=== PATIENT | female | born 1965 | race African-American/Black ===

== ENCOUNTER 2023-11-15 19:44 | Inpatient (IN) | payer OTHER ==
[2023-11-15 21:25] LABS: Anisocytosis Slight; Basophils % (A) 0 %; Eosinophils # (A) 0.2 k/uL (0-0.7); Eosinophils % (A) 1 %; HCT 42.8 % (34.0-46.0); Hypochromasia Slight; Lymphocytes # (A) 0.4 k/uL (1.0-4.8); Lymphocytes % (A) 2 %; MCH 25.6 pg (25.0-35.0); MCHC 30.3 g/dL (31.0-37.0); MCV 84.3 fL (80.0-100.0); Mean Platelet Volume 9.1; Monocytes # (A) 0.4 k/uL (0-1.0); Monocytes % (A) 2 %; Neutrophils # (A) 18.7 k/uL (1.3-7.7); Neutrophils % (A) 95 %; Platelet Count 254 k/uL (150-450); RBC 5.07 m/uL (3.80-5.40); RDW 16.2 % (11.5-15.5); WBC 19.7 k/uL (3.8-10.6)
[2023-11-15 21:26] LABS: ALT 25 U/L (4-34); AST 42 U/L (14-36); African American GFR (CKD) >90 (>60 ml/min/1.73 sqM); Albumin 4.3 g/dL (3.5-5.0); Alkaline Phosphatase 94 U/L (38-126); Anion Gap 11 mmol/L; Blood Urea Nitrogen 17 mg/dL (7-17); Calcium 9.3 mg/dL (8.4-10.2); Carbon Dioxide 23 mmol/L (22-30); Chloride 107 mmol/L (98-107); Glucose 65 mg/dL (74-99); Non-African American GFR(CKD) >90 (>60 ml/min/1.73 sqM); Potassium 4.2 mmol/L (3.5-5.1); Sodium 141 mmol/L (137-145); Total Bilirubin 0.6 mg/dL (0.2-1.3); Total Protein 7.7 g/dL (6.3-8.2)
--- NOTE | 2023-11-15 21:26 | ED ---
Lower Extremity Injury HPI - General Source: patient, RN notes reviewed Mode of arrival: ambulatory Limitations: physical limitation <Priyanka Campos - Last Filed: 11/15/23 21:24> <Philip Mckeon - Last Filed: 11/16/23 01:25> - General Chief Complaint: Extremity Injury, Lower Stated Complaint: rt foot injury Time Seen by Provider: 11/15/23 21:24 - History of Present Illness Initial Comments: Quick [id number] female presenting with right foot injury. States yesterday she accidentally stepped on a piece of plastic. She states she had a retained foreign body which she states she got most of it out but believes there is still plastic remaining. States her foot is swollen and red and also admits fever but denies any URI symptoms. (Priyanka Campos) 58-year-old female presenting to the ED with a chief complaint of right foot pain. Patient reports yesterday she stepped on a piece of plastic. Reports since then has had increasing redness, pain, and swelling of her right foot. Does note some associated fever. Denies URI symptoms. Denies abdominal pain. Denies changes in bowel or bladder habits. No other complaints at this time. (Philip Mckeon) - Related Data Allergies Allergy/AdvReac Type Severity Reaction Status Date / Time amlodipine Allergy Rash/Hives Verified 11/15/23 20:42 ceftriaxone [From Rocephin] Allergy Swelling Verified 11/15/23 20:42 Review of Systems ROS Other: All systems not noted in ROS Statement are negative. <Priyanka Campos - Last Filed: 11/15/23 21:24> ROS Other: All systems not noted in ROS Statement are negative. <Philip Mckeon - Last Filed: 11/16/23 01:25> ROS Statement: Those systems with pertinent positive or pertinent negative responses have been documented in the HPI. Past Medical History Past Medical History: Hypertension Additional Past Medical History / Comment(s): neuropathy. heroin/fentanyl use last 11/09/23 History of Any Multi-Drug Resistant Organisms: None Reported Past Surgical History: Bladder Surgery Additional Past Surgical History / Comment(s): ulcer Past Psychological History: No Psychological Hx Reported Smoking Status: Current every day smoker Past Alcohol Use History: None Reported Past Drug Use History: None Reported <Priyanka Campos - Last Filed: 11/15/23 21:24> General Exam Limitations: physical limitation <AndresLisaPriyanka - Last Filed: 11/15/23 21:24> General appearance: alert, in no apparent distress Eye exam: Present: normal appearance Neck exam: Present: normal inspection Respiratory exam: Present: normal lung sounds bilaterally Cardiovascular Exam: Present: regular rate GI/Abdominal exam: Present: soft Extremities exam: Present: other (Right foot swollen and warm.) Neurological exam: Present: alert, oriented X3 Skin exam: Present: warm, dry <Philip Mckeon - Last Filed: 11/16/23 01:25> - General Exam Comments Initial Comments: Visual Physical Exam Vital signs reviewed General: Well-appearing, nontoxic, no acute distress. Head: Normocephalic, atraumatic Eyes: PERRLA, EOMI ENT: Airway patent Chest: Nonlabored breathing Skin: No visual rash, normal skin tone Neuro: Alert and oriented 3 Musculoskeletal: No gross abnormalities (Priyanka Campos) Course Vital Signs 11/15/23 11/16/23 20:42 00:20 Temperature 100.7 F H 98.9 F Pulse Rate 87 83 Respiratory 16 18 Rate Blood Pressure 205/109 177/82 O2 Sat by Pulse 97 96 Oximetry Medical Decision Making <Priyanka Campos - Last Filed: 11/15/23 21:24> - Lab Data Result diagrams: 11/15/23 21:06 11/15/23 21:06 <Jigar Mckeonua - Last Filed: 11/16/23 01:25> - Medical Decision Making I completed the quick note portion of this chart signed Priyanka Campos PA-C (Priyanka Campos) Was pt. sent in by a medical professional or institution ([facility], BOOK CUTTER, urgent care, hospital, or senior living...) When possible be specific @ -No Did you speak to anyone other than the patient for history (EMS, parent, family, police, friend...)? What history was obtained from this source @ -No Did you review nursing and triage notes (agree or disagree)? Why? @ -I reviewed and agree with nursing and triage notes Were old charts reviewed (outside hosp., previous admission, EMS record, old EKG, old radiological studies, urgent care reports/EKG's, senior living records)? Report findings @ -No old charts were reviewed Differential Diagnosis (chest pain, altered mental status, abdominal pain women, abdominal pain men, vaginal bleeding, weakness, fever, dyspnea, syncope, headache, dizziness, GI bleed, back pain, seizure, CVA, palpatations, mental health, musculoskeletal)? @ -Differential Musculoskeletal Muscular strain, contusion, ligament sprain, fracture, arthritis, septic arthritis, bursitis, cellulitis, muscle spasm, nerve compression, DVT, arterial occlusion, herpes zoster, electrolyte abnormality, tumor.... This is not meant to be in all inclusive list EKG interpreted by me (3pts min.). @ -None X-rays interpreted by me (1pt min.). @ -X-ray of the right foot interpreted me which reveals no evidence of acute process. CT interpreted by me (1pt min.). @ -None done U/S interpreted by me (1pt. min.). @ -None done What testing was considered but not performed or refused? (CT, X-rays, U/S, labs)? Why? @ -None What meds were considered but not given or refused? Why? @ -None Did you discuss the management of the patient with other professionals (professionals i.e. , PA, BOOK CUTTER, lab, RT, psych nurse, social sciences lecturer, powerhouse laborer, teacher, community service officer, counseling case manager)? Give summary @ -Case discussed with Dr. Flaherty, who accepts admission Was smoking cessation discussed for >3mins.? @ -No Was critical care preformed (if so, how long)? @ -Yes, 35 minutes for sepsis Were there social determinants of health that impacted care today? How? (Homelessness, low income, unemployed, alcoholism, drug addiction, transportation, low edu. Level, literacy, decrease access to med. care, [facility], rehab)? @ -No Was there de-escalation of care discussed even if they declined (Discuss DNR or withdrawal of care, Hospice)? DNR status @ -No What co-morbidities impacted this encounter? (DM, HTN, Smoking, COPD, CAD, Cancer, CVA, ARF, Chemo, Hep., AIDS, mental health diagnosis, sleep apnea, morbid obesity)? @ -None Was patient admitted / discharged? Hospital course, mention meds given and route, prescriptions, significant lab abnormalities, going to OR and other pertinent info. @ -Admission 58-year-old female presented to the ED with complaints of increasing right foot pain after stepping on a plastic piece yesterday with increasing warmth and fever as well. The patient presented to this facility at 194. She met sepsis criteria at 2113. Patient was signed up for at 2333. At 0012 patient given 2 L bolus of fluids and 1 g of acetaminophen. At 0100 patient ordered vancomycin. Blood cultures were obtained and lactic was obtained as well. Labs relevant for an elevated white blood cell count at 19 and a lactic acid of 2.3. Patient will be admitted for IV antibiotics secondary to infection of the right foot. Undiagnosed new problem with uncertain prognosis? @ -No Drug Therapy requiring intensive monitoring for toxicity (Heparin, Nitro, Insulin, Cardizem)? @ -No Were any procedures done? @ -No Diagnosis/symptom? @ -Right foot infection, SIRS criteria Acute, or Chronic, or Acute on Chronic? @ -Acute Uncomplicated (without systemic symptoms) or Complicated (systemic symptoms)? @ -Complicated Side effects of treatment? @ -No Exacerbation, Progression, or Severe Exacerbation? @ -No Poses a threat to life or bodily function? How? (Chest pain, [place], [place], pneumonia, PE, COPD, DKA, ARF, appy, cholecystitis, CVA, Diverticulitis, Homicidal, Suicidal, threat to staff... and all critical care pts) @ -Yes, sepsis (Philip Mckeon) - Lab Data Lab Results 11/15/23 11/15/23 11/15/23 Range/Units 21:06 21:06 21:06 WBC 19.7 H (3.8-10.6) k/uL RBC 5.07 (3.80-5.40) m/uL Hgb 13.0 (11.4-16.0) gm/dL Hct 42.8 (34.0-46.0) % MCV 84.3 (80.0-100.0) fL MCH 25.6 (25.0-35.0) pg MCHC 30.3 L (31.0-37.0) g/dL RDW 16.2 H (11.5-15.5) % Plt Count 254 (150-450) k/uL MPV 9.1 Neutrophils % 95 % Lymphocytes % 2 % Monocytes % 2 % Eosinophils % 1 % Basophils % 0 % Neutrophils # 18.7 H (1.3-7.7) k/uL Lymphocytes # 0.4 L (1.0-4.8) k/uL Monocytes # 0.4 (0-1.0) k/uL Eosinophils # 0.2 (0-0.7) k/uL Basophils # 0.0 (0-0.2) k/uL Hypochromasia Slight Anisocytosis Slight Sodium 141 (137-145) mmol/L Potassium 4.2 (3.5-5.1) mmol/L Chloride 107 (98-107) mmol/L Carbon Dioxide 23 (22-30) mmol/L Anion Gap 11 mmol/L BUN 17 (7-17) mg/dL Creatinine 0.71 (0.52-1.04) mg/dL Est GFR (CKD-EPI)AfAm >90 (>60 ml/min/1.73 sqM) Est GFR (CKD-EPI)NonAf >90 (>60 ml/min/1.73 sqM) Glucose 65 L (74-99) mg/dL Lactic Ac Sepsis Rflx Plasma Lactic Acid Kiran 2.3 H* (0.7-2.0) mmol/L Calcium 9.3 (8.4-10.2) mg/dL Total Bilirubin 0.6 (0.2-1.3) mg/dL AST 42 H (14-36) U/L ALT 25 (4-34) U/L Alkaline Phosphatase 94 (38-126) U/L Total Protein 7.7 (6.3-8.2) g/dL Albumin 4.3 (3.5-5.0) g/dL 11/15/23 11/16/23 Range/Units 21:29 00:45 WBC (3.8-10.6) k/uL RBC (3.80-5.40) m/uL Hgb (11.4-16.0) gm/dL Hct (34.0-46.0) % MCV (80.0-100.0) fL MCH (25.0-35.0) pg MCHC (31.0-37.0) g/dL RDW (11.5-15.5) % Plt Count (150-450) k/uL MPV Neutrophils % % Lymphocytes % % Monocytes % % Eosinophils % % Basophils % % Neutrophils # (1.3-7.7) k/uL Lymphocytes # (1.0-4.8) k/uL Monocytes # (0-1.0) k/uL Eosinophils # (0-0.7) k/uL Basophils # (0-0.2) k/uL Hypochromasia Anisocytosis Sodium (137-145) mmol/L Potassium (3.5-5.1) mmol/L Chloride (98-107) mmol/L Carbon Dioxide (22-30) mmol/L Anion Gap mmol/L BUN (7-17) mg/dL Creatinine (0.52-1.04) mg/dL Est GFR (CKD-EPI)AfAm (>60 ml/min/1.73 sqM) Est GFR (CKD-EPI)NonAf (>60 ml/min/1.73 sqM) Glucose (74-99) mg/dL Lactic Ac Sepsis Rflx Y Plasma Lactic Acid Kiran 1.8 (0.7-2.0) mmol/L Calcium (8.4-10.2) mg/dL Total Bilirubin (0.2-1.3) mg/dL AST (14-36) U/L ALT (4-34) U/L Alkaline Phosphatase (38-126) U/L Total Protein (6.3-8.2) g/dL Albumin (3.5-5.0) g/dL Disposition <Priyanka Campos - Last Filed: 11/15/23 21:24> Time of Disposition: 01:00 <Philip Mckeon - Last Filed: 11/16/23 01:25> Clinical Impression: Foot infection Disposition: ADMITTED IP TO THIS HOSP Condition: Good Referrals: Arnav López MD [Primary Care Provider] - 1-2 days
--- NOTE | 2023-11-15 23:30 | XR ---
EXAMINATION TYPE: XR foot complete RT DATE OF EXAM: 11/15/2023 CLINICAL HISTORY: right foot injury with pain TECHNIQUE: Frontal, lateral, and oblique images of the right foot are obtained. COMPARISON: None FINDINGS: There is no acute fracture/dislocation evident in the right foot. Hallux valgus positionin g at the metatarsophalangeal joints greatest involving the first toe. [id number] narrowing at t his level is seen. Subacute or chronic fracture at the proximal diaphysis fifth metatarsal . Flexion in the toes is present making evaluation at this level slightly suboptimal. Small inferior calcaneal spur. Unfused apophysis proximal medial base of the navicular is present. The overlying soft tissue appears unremarkable. IMPRESSION: There is no acute fracture or dislocation in the right foot.
[2023-11-16] MEDS ORDERED: VANCOMYCIN IV PER PHARMACY 1 EACH MISC MISCELLANE PRN (00:18)
[2023-11-16] MEDS: ACETAMINOPHEN TAB 500 MG TAB PO STA (00:24)
[2023-11-16] MEDS: SODIUM CHLORIDE 0.9% 2,000 ML IV STA (00:40)
[2023-11-16] MEDS: VANCOMYCIN 1,500 MG in SODIUM CHLORIDE 0.9% 500 ML 500 ML IVPB ONE (00:41)
[2023-11-16] MEDS ORDERED: NALOXONE 0.4 MG/ML 1 ML VIAL IV PRN (01:20)
[2023-11-16] MEDS: SODIUM CHLORIDE 0.9% 1,000 ML IV SCH (02:19)
[2023-11-16] MEDS: KETOROLAC 15 MG/ML 1 ML VIAL IVP STA ×2 (02:37→10:50)
[2023-11-16 02:51] LABS: Appearance,Urine Clear (Clear); Bilirubin,Urine Negative (Negative); Blood,Urine Negative (Negative); Color,Urine Colorless; Glucose,Urine (UA) Negative (Negative); Ketones,Urine Negative (Negative); Leukocyte Esterase,Urine Negative (Negative); Nitrite,Urine Negative (Negative); Protein,Urine Negative (Negative); Specific Gravity,Urine 1.013 (1.001-1.035); Urobilinogen,Urine <2.0 mg/dL (<2.0)
--- NOTE | 2023-11-16 05:48 | P.HPIM ---
History of Present Illness H&P Date: 11/16/23 Chief Complaint: Right foot infection 58-year-old female with history of spinal stenosis and neuropathy Patient coming in for evaluation of right foot injury associated with swelling proximally. Patient reports that she has bad peripheral neuropathy and couple days ago not iced that she has injured her foot by stepping on been Endo Clip which she was able to clean off when she found the wound in her right foot she does not feel much pain due to peripheral neuropathy but has noticed that right proximal leg has been getting swollen easily tired. After which she was able to express small piece of the plastic clip. Patient reports some chills and feeling warm. Denies any drainage denies any bleeding however she did find some dried crustacean in her socks Patient also admits to taking methadone 130 mg daily for severe withdrawal symptoms Patient denies tobacco smoking illicit drugs or heavy alcohol review of systems Pertinent positives as noted in HPI. All other systems were reviewed and are negative on exam Constitutional: No acute distress, conversant, pleasant Eyes: Anicteric sclerae, moist conjunctiva, Pupils equal round reactive to light ENMT: NC/AT Oropharynx clear, no erythema, or exudates Neck: Supple, no masses, or JVD No carotid bruits No thyromegaly Lungs: Clear to auscultation Clear to percussion Normal respiratory effort, no accessory muscle use Cardiovascular: Heart regular in rate and rhythm, No murmurs, gallops, or rubs No peripheral edema Abdominal: Soft Nontender, no guarding, rebound or rigidity Abdomen moving with respiration Normoactive bowel sounds Extremities: Right foot with small puncture wound slightly above midline of the right foot showing small entry point no digital cyanosis No clubbing Pedal pulses intact and symmetrical Radial pulses intact and symmetrical No calf tenderness Psychiatric: Alert and oriented to person, place and time Appropriate affect fair judgement Neuro Muscles Strength 5/5 in all 4 extremities Sensation to light touch grossly present throughout Cranial nerves II-XII grossly intact Lymphatics: Palpable right inguinal lymph nodes Past Medical History Past Medical History: Hypertension Additional Past Medical History / Comment(s): neuropathy. heroin/fentanyl use last 11/09/23 History of Any Multi-Drug Resistant Organisms: None Reported Past Surgical History: Bladder Surgery Additional Past Surgical History / Comment(s): ulcer Past Anesthesia/Blood Transfusion Reactions: No Reported Reaction Past Psychological History: No Psychological Hx Reported Smoking Status: Current every day smoker Past Drug Use History: Heroin Additional Drug Use History / Comment(s): fetanyl Medications and Allergies Allergies Allergy/AdvReac Type Severity Reaction Status Date / Time amlodipine Allergy Rash/Hives Verified 11/15/23 20:42 ceftriaxone [From Rocephin] Allergy Swelling Verified 11/15/23 20:42 Physical Exam Vitals: Vital Signs Temp Pulse Pulse Resp BP BP Pulse Ox 11/16/23 03:04 98.8 F 82 16 183/77 98 11/16/23 02:51 77 18 171/91 96 11/16/23 00:20 98.9 F 83 18 177/82 96 11/15/23 20:42 100.7 F H 87 16 205/109 97 Intake and Output 11/15/23 11/15/23 11/16/23 14:59 22:59 06:59 Other: Voiding Method Toilet Weight 70.307 kg 70.307 kg Results CBC & Chem 7: 11/15/23 21:06 11/15/23 21:06 Labs: Abnormal Lab Results - Last 24 Hours (Table) 11/15/23 11/15/23 11/15/23 Range/Units 21:06 21:06 21:06 WBC 19.7 H (3.8-10.6) k/uL MCHC 30.3 L (31.0-37.0) g/dL RDW 16.2 H (11.5-15.5) % Neutrophils # 18.7 H (1.3-7.7) k/uL Lymphocytes # 0.4 L (1.0-4.8) k/uL Glucose 65 L (74-99) mg/dL Plasma Lactic Acid Kiran 2.3 H* (0.7-2.0) mmol/L AST 42 H (14-36) U/L Thrombosis Risk Factor Assmnt - Choose All That Apply Any of the Below Risk Factors Present?: Yes Each Factor Represents 1 point: Age 41-60 years, Swollen legs (current) Thrombosis Risk Factor Assessment Total Risk Factor Score: 2 Thrombosis Risk Factor Assessment Level: Low Risk Assessment and Plan Assessment: 58-year-old female with peripheral neuropathy hypertension coming in for evaluation of right foot wound caused by injury with foreign body by stepping on it I discussed the case with ED doctor and accepted the admission for cellulitis of the right lower extremity requiring IV antibiotics with anticipated length of stay more than 2 midnights Sepsis secondary to cellulitis of the right lower extremity Follow-up cultures IV fluid hydration with normal saline 120 cc/h Pain control with Tylenol 4 times daily as needed patient requested [place] tens Continue with clindamycin 600 mg Q ID Blood work showing white count of 19 lactic acid 2.3 Patient has history of opiate abuse She claims to be on methadone 130 mg daily Verify in the morning done resume medications Full code DVT prophylaxis heparin subcu 3 times daily
[2023-11-16] MEDS: MORPHINE SULFATE 2 MG/ML SYRINGE IVP ONE (08:03)
[2023-11-16 08:48] LABS: African American GFR (CKD) >90 (>60 ml/min/1.73 sqM); Non-African American GFR(CKD) >90 (>60 ml/min/1.73 sqM)
[2023-11-16] MEDS: IBUPROFEN 400 MG TAB PO PRN (08:55)
[2023-11-16] MEDS: HEPARIN SODIUM,PORCINE 5,000 UNIT/ML 1 ML VIAL SQ SCH (08:56)
[2023-11-16] MEDS ORDERED: DEXTROSE 50% SYRINGE 50 ML IVP PRN ×2 (10:32)
[2023-11-16] MEDS: PROCHLORPERAZINE INJ 10 MG/2 ML VIAL IVP STA (10:50)
[2023-11-16] MEDS: diphenhydrAMINE 50 MG/ML 1 ML VIAL IVP STA (10:50)
[2023-11-16] MEDS: LOSARTAN 50 MG TAB PO SCH (10:51)
[2023-11-16] MEDS: cloNIDine HCL 0.1 MG TAB PO SCH (10:51)
[2023-11-16] MEDS: METHADONE 10 MG TAB PO SCH (11:46)
[2023-11-16] MEDS: SERTRALINE 50 MG TAB PO SCH (11:47)
[2023-11-16] MEDS: THIAMINE 100 MG TAB PO SCH (11:47)
[2023-11-16] MEDS: MULTIVITAMINS, THERA 1 EACH TAB PO SCH (11:47)
[2023-11-16] MEDS: VANCOMYCIN 1,500 MG in SODIUM CHLORIDE 0.9% 500 ML 500 ML IVPB SCH (12:44)
--- NOTE | 2023-11-16 15:11 | P.PN ---
Subjective Progress Note Date: 11/16/23 Hospital course: Patient is a pleasant 58-year-old female with a past medical history of hypertension, neuropathy, nicotine dependence, heroin/fentanyl use, and methadone dependence. She presented to the emergency department on 11/15/2023 with a chief complaint of right lower extremity pain/infected wound. Patient reported that on 11/14/2023 she stepped on a piece of plastic resulting in injury to her foot. Patient reports she was able to remove foreign body/piece of plastic that was stuck in her foot but has since had significant pain, swelling, and redness. She reports she came to the emergency department today as the swelling and redness is now extending up into her lower leg. Upon arrival in the emergency department, patient underwent evaluation. Vital signs upon arr ival show blood pressure 205/109, heart rate 87, respiratory rate 16, temp 100.7 F, and SpO2 of 97% on room air. X-ray right foot negative for acute fracture or dislocation showing no signs of foreign body reported by radiologist or noted upon personal review of imaging. Labs completed and reviewed. CBC showing leukocytosis with WBC count of 19.7. BMP showing hypoglycemia with glucose of 65. Lactic acid elevated at 2.3. Liver profile showing elevated AST of 42 otherwise normal findings. Patient reports last injecting heroin and fentanyl on 11/09/23 and denies ever injecting into right lower extremity or foot. Patient started on IV antibiotics and admitted under our services with cons ultation to infectious disease. Physical exam: Vital signs reviewed and stable. General: Nontoxic, no distress and appears stated age. Derm: Skin warm and dry, normal coloration for ethnicity. Right foot plantar region with small puncture wound slightly above midline of the right foot showing small entry point with surrounding erythema and mild swelling extending into ankle and lower region of right lower leg. No digital cyanosis. Head: Atraumatic, normocephalic and symmetric. Eyes: EOMs intact, no lid lag, and anicteric sclera Mouth: no lip lesions, mucus membranes moist Cardiovascular: regular rate and rhythm with normal S1S2, no murmur, positive posterior tibial pulses bilaterally, and cap refill < 2 seconds. Lungs: Respirations even, regular, and unlabored on room air. Lungs CTA bilaterally, no rhonchi, no rales, no wheezing, and no accessory muscle usage. Abdominal: soft, nontender to palpation, no guarding, no appreciable organomegaly Ext: ROM intact. No gross muscle atrophy, right lower extremity edema, no contractures Neuro: Speech clear, face symmetrical and CN II-XII grossly intact with no noted focal neuro deficits Psych: Alert and oriented to person, place, time, and situation. Appropriate and pleasant affect. Assessment and Plan of Care: Cellulitis right lower extremity/foot Sepsis secondary to above Hypertensive urgency Hypoglycemia, likely secondary to decreased oral intake and sepsis due to current infectious process Lactic acidosis History of IVDA with heroin/fentanyl Methadone dependent -Continue IV antibiotics with vancomycin 1500 mg every 12 hours -Follow-up on blood culture results -Infectious disease consulted -Symptomatic care and pain management with Dilaudid 0.5 mg every 3 hours as needed for moderate pain or 1 mg IVP every 3 hours as needed for severe pain. -Order placed for glycemic protocol with blood glucose checks every 4 hours, will monitor closely for any further signs of hypoglycemia. -Order placed for repeat morning CBC and BMP to monitor for improvement of leukocytosis and for close monitoring of renal function to monitor for any signs of vancomycin induced renal toxicity. -Patient to resume methadone 130 mg daily along with antihypertensive medication regimen with clonidine 0.3 mg 3 times daily and losartan 50 mg daily, -Lactic acidosis resolved status post IV fluid hydration with repeat lactate of 1.8. CODE STATUS: Full code DVT prophylaxis: Heparin Anticipated discharge date: Clinical course to determine Anticipated discharge place: Home Patient was seen independently by Nurse Pracitioner. This document was prepared using [employer] dictation software. Please allow for errors in soldering machine setter, while rare they do occur. I reviewed the documentation as provided by the LYLE above, who is the original author of this note. I agree with the documented assessment and plan, with the following changes: none Objective - Vital Signs Vital signs: Vital Signs Temp 99 F 11/16/23 07:00 Pulse 77 11/16/23 07:00 Resp 16 11/16/23 07:00 BP 188/83 11/16/23 07:00 Pulse Ox 97 11/16/23 07:00 FiO2 Intake & Output 11/15/23 11/16/23 11/16/23 18:59 06:59 18:59 Weight 70.307 kg Other: Voiding Method Toilet # Voids 1 - Labs CBC & Chem 7: 11/18/23 04:43 04/27/24 04:43 Labs: Abnormal Lab Results - Last 24 Hours (Table) 11/15/23 11/15/23 11/15/23 Range/Units 21:06 21:06 21:06 WBC 19.7 H (3.8-10.6) k/uL MCHC 30.3 L (31.0-37.0) g/dL RDW 16.2 H (11.5-15.5) % Neutrophils # 18.7 H (1.3-7.7) k/uL Lymphocytes # 0.4 L (1.0-4.8) k/uL Glucose 65 L (74-99) mg/dL Plasma Lactic Acid Kiran 2.3 H* (0.7-2.0) mmol/L AST 42 H (14-36) U/L
[2023-11-16 18:53] LABS: Glucose,Whole Blood 75 mg/dL (70-110)
[2023-11-16 22:20] LABS: Glucose,Whole Blood 75 mg/dL (70-110)
--- NOTE | 2023-11-16 23:02 | P.CONS ---
History of Present Illness - Reason for Consult Consult date: 11/16/23 - History of Present Illness Patient is a 58-year-old -[place] female with a past medical history of kidney for hypertension neuropathy and did have a history of drug use presenting to the hospital last night for evaluation of right foot pain swelling and redness patient mention that she accidentally stepped on a piece of plastic about 2 days ago and since then the patient started having increasing pain swelling redness of the right foot area patient describing the pain to be sharp moderate to severe intensity without radiation with associated swelling redness but no drainage patient did have a fever 100.7 continue follow-up hide on presentation to the hospital patient was nontachycardic hypertensive or hypoxic patient did have white count 19.7 with a left shift creatinine was normal lactic acid was 2.3 AST is mildly elevated UA is negative patient did have a x-ray of the foot no acute fracture or dislocation of the right foot did not mention any foreign body patient has been treated with the vancomycin blood cultures came back positive with Streptococcus pyogenes infectious was consulted for further management of antibiotic therapy Past Medical History Past Medical History: Hypertension Additional Past Medical History / Comment(s): neuropathy. heroin/fentanyl use last 11/09/23 History of Any Multi-Drug Resistant Organisms: None Reported Past Surgical History: Bladder Surgery Additional Past Surgical History / Comment(s): ulcer Past Anesthesia/Blood Transfusion Reactions: No Reported Reaction Past Psychological History: No Psychological Hx Reported Smoking Status: Current every day smoker Past Drug Use History: Heroin Additional Drug Use History / Comment(s): fetanyl Medications and Allergies Home Medications Medication Instructions Recorded Confirmed Type Acetaminophen [Tylenol] 650 mg PO Q4H 11/16/23 11/16/23 History Calcium/Zinc/Mag/D3 1 tab PO TID PRN 11/16/23 11/16/23 History Losartan [Cozaar] 50 mg PO DAILY 11/16/23 11/16/23 History Methadone HCl [Methadone Intensol] 130 mg PO DAILY 11/16/23 11/16/23 History Multivitamins, Thera [Multivitamin 1 tab PO DAILY 11/16/23 11/16/23 History (formulary)] Mylanta 30 ml PO Q4H PRN 11/16/23 11/16/23 History Sennosides-Docusate Sodium 1 tab PO BID 11/16/23 11/16/23 History [Senokot-S] Sertraline [Zoloft] 50 mg PO DAILY 11/16/23 11/16/23 History Thiamine [Vitamin B-1] 100 mg PO DAILY 11/16/23 11/16/23 History cloNIDine HCL 0.3 mg PO TID 11/16/23 11/16/23 History traZODone HCL [Desyrel] 50 - 150 mg PO HS PRN 11/16/23 11/16/23 History Allergies Allergy/AdvReac Type Severity Reaction Status Date / Time amlodipine Allergy Rash/Hives Verified 11/16/23 08:59 ceftriaxone [From Rocephin] Allergy Swelling Verified 11/16/23 08:59 Physical Exam Vitals: Vital Signs Temp Pulse Pulse Resp BP BP Pulse Ox 11/16/23 15:00 98.6 F 67 16 134/67 95 11/16/23 07:00 99 F 77 16 188/83 97 11/16/23 03:04 98.8 F 82 16 183/77 98 11/16/23 02:51 77 18 171/91 96 11/16/23 00:20 98.9 F 83 18 177/82 96 11/15/23 20:42 100.7 F H 87 16 205/109 97 Intake and Output 11/16/23 11/16/23 11/16/23 06:59 14:59 22:59 Intake Total 236 Balance 236 Intake: Oral 236 Other: Voiding Method Toilet Toilet # Voids 1 Weight 70.307 kg Results CBC & Chem 7: 11/15/23 21:06 11/16/23 08:14 Labs: Abnormal Lab Results - Last 24 Hours (Table) 11/15/23 11/15/23 11/15/23 Range/Units 21:06 21:06 21:06 WBC 19.7 H (3.8-10.6) k/uL MCHC 30.3 L (31.0-37.0) g/dL RDW 16.2 H (11.5-15.5) % Neutrophils # 18.7 H (1.3-7.7) k/uL Lymphocytes # 0.4 L (1.0-4.8) k/uL Glucose 65 L (74-99) mg/dL Plasma Lactic Acid Kiran 2.3 H* (0.7-2.0) mmol/L AST 42 H (14-36) U/L Microbiology - Last 24 Hours (Table) 11/15/23 21:06 Blood Culture Gram Stain - Preliminary Blood Blood Culture - Preliminary Molecular ID Assessment and Plan Plan: 1patient presented hospital with sepsis in this patient who did have fever elevated white count source is right foot cellulitis in this patient presented with right foot injury from stepping on a plastic and did have evidence of cellulitis. Likely from gram-positive skin natali 2Streptococcus pyogenes bacteremia source likely right foot cellulitis 3-patient with ceftriaxone allergy describing his swelling/diarrhea clinical or true allergy as the patient mention she has taken Keflex without any problem 4-blood cultures will be repeated document clearance of bacteremia 5-May benefit from CT of the right foot to make sure evidence of any abscess keeping in mind the bacteremia 6-discontinue vancomycin 7-start the patient on cefazolin 2 g every 8 hours Multiple question concern answered We will follow on clinical condition and cultures to further adjust medication if needed Thank you for this consultation we will follow the patient along with you Dictation was produced using [employer] dictation software. please excuse any grammatical, word or spelling errors. Time with Patient: Greater than 30
[2023-11-17] MEDS: ACETAMINOPHEN TAB 325 MG TAB PO PRN (01:03)
[2023-11-17 02:16] LABS: Glucose,Whole Blood 80 mg/dL (70-110)
[2023-11-17 05:35] LABS: Glucose,Whole Blood 77 mg/dL (70-110)
[2023-11-17] MEDS: HYDROmorphone 1 MG/ML 1 ML SYRINGE IVP PRN (10:15)
[2023-11-17 10:21] LABS: Glucose,Whole Blood 82 mg/dL (70-110)
[2023-11-17 10:28] LABS: HGB 10.1 g/dL (12.0-15.0); MCH 25.6 pg (27.0-32.0); MCHC 30.6 g/dL (32.0-37.0); MCV 83.5 FL (80.0-97.0); Mean Platelet Volume 13.3 FL (9.5-12.2); NRBC Per 100 WBC 0 X 10*3/uL (0.00-0.01); Platelet Count 172 X 10*3/uL (140-440); RBC 3.95 X 10*6/uL (4.10-5.20); RDW 16.6 % (11.5-14.5); WBC 9.47 X 10*3/uL (4.50-10.00)
[2023-11-17 11:03] LABS: ALT 34 U/L (8-44); AST 34 U/L (13-35); Albumin 3.2 g/dL (3.8-4.9); Albumin/Globulin Ratio 1.33 Ratio (1.60-3.17); Alkaline Phosphatase 96 U/L (41-126); BUN/Creat Ratio 15.62 Ratio (12.00-20.00); Blood Urea Nitrogen 12.5 mg/dL (9.0-27.0); Calcium 8.4 mg/dL (8.7-10.3); Carbon Dioxide 21.4 mmol/L (21.6-31.8); Chloride 109 mmol/L (96-109); Globulin 2.4 g/dL (1.6-3.3); Glucose 67 mg/dL (70-110); Magnesium 2.1 mg/dL (1.5-2.4); Potassium 4.1 mmol/L (3.5-5.5); Sodium 142 mmol/L (135-145); Total Bilirubin <0.2 mg/dL (0.3-1.2); Total Protein 5.6 g/dL (6.2-8.2)
[2023-11-17] MEDS: PROCHLORPERAZINE INJ 10 MG/2 ML VIAL IVP STA (11:17)
[2023-11-17] MEDS: diphenhydrAMINE 50 MG/ML 1 ML VIAL IVP STA (11:17)
[2023-11-17] MEDS: KETOROLAC 15 MG/ML 1 ML VIAL IVP STA (11:17)
[2023-11-17] MEDS ORDERED: VANCOMYCIN TROUGH DUE 1 EACH MISC MISCELLANE ONE (12:00)
--- NOTE | 2023-11-17 12:23 | CA ---
Transthoracic Echo Report Name: Ирина Fuchs Age: 58 Gender: F : 1965 Exam Date: 11/17/2023 10:45 Exam Location: [facility] Ht (in): 71 Wt (lb): 155 Ordering Physician: Rosales Trammell Attending/Referring Phys: Mail Handler Vicenta Reyes RCS Procedure CPT: Indications: strep a bacteremia need to r/o vegitative growth Cardiac Hx: Technical Quality: Good Contrast 1: Total Dose (mL): Contrast 2: Total Dose (mL): MEASUREMENTS (Male / Female) Normal Values 2D ECHO LV Diastolic Diameter PLAX 5.1 cm 4.2 - 5.9 / 3.9 - 5.3 cm LV Systolic Diameter PLAX 3.5 cm IVS Diastolic Thickness 0.9 cm 0.6 - 1.0 / 0.6 - 0.9 cm LVPW Diastolic Thickness 1.0 cm 0.6 - 1.0 / 0.6 - 0.9 cm LV Relative Wall Thickness 0.4 LVOT Diameter 2.1 cm Aortic Root Diameter 3.1 cm LV Diastolic Volume MOD BP 148.0 cm??? 67 - 155 / 56 - 104 cm??? LV Systolic Volume MOD BP 54.7 cm??? 22 - 58 / 19 - 49 cm??? LV Ejection Fraction MOD BP 63.0 % >= 55 % LV Cardiac Index MOD BP 3285.7 cm???/min???m??? LV Diastolic Volume MOD 4C 134.8 cm??? LV Systolic Volume MOD 4C 42.3 cm??? LV Ejection Fraction MOD 4C 68.6 % LV Cardiac Index MOD 4C 3260.4 cm???/min???m??? LV Diastolic Length 4C 8.8 cm LV Systolic Length 4C 6.6 cm LV Diastolic Volume MOD 2C 156.8 cm??? LV Systolic Volume MOD 2C 64.3 cm??? LV Ejection Fraction MOD 2C 59.0 % LV Cardiac Index MOD 2C 3256.6 cm???/min???m??? LV Diastolic Length 2C 9.2 cm LV Systolic Length 2C 7.3 cm DOPPLER AV Peak Velocity 118.9 cm/s AV Peak Gradient 5.7 mmHg AV Mean Velocity 79.6 cm/s AV Mean Gradient 2.9 mmHg AV Velocity Time Integral 23.7 cm LVOT Peak Velocity 101.8 cm/s LVOT Peak Gradient 4.1 mmHg LVOT Velocity Time Integral 21.1 cm LVOT Stroke Volume 76.5 cm??? LVOT Stroke Volume Index 40.4 ml/m??? LVOT Cardiac Index 2695.2 cm???/min???m??? AV Area Cont Eq vti 3.2 cm??? AV Area Cont Eq pk 3.1 cm??? Mitral E Point Velocity 85.8 cm/s Mitral A Point Velocity 49.5 cm/s Mitral E to A Ratio 1.7 MV Deceleration Time 151.0 ms MV E' Velocity 10.3 cm/s Mitral E to MV E' Ratio 8.3 PV Peak Velocity 63.7 cm/s PV Peak Gradient 1.6 mmHg FINDINGS Left Ventricle Left ventricular ejection fraction is estimated at 60-65 %. Severely increased left ventricular diastolic volume. Mildly increased left ventricular systolic volume. Left ventricular wall thickness normal. No obvious regional wall motion abnormalities. Normal diastolic function. Right Ventricle Normal right ventricular size and function. Unable to estimate right ventricular systolic pressure. Right Atrium Normal right atrial size. Left Atrium Borderline enlarged left atrial size. Mitral Valve Structurally normal mitral valve. No evidence for mitral valve prolapse. No mitral stenosis. Mild mitral regurgitation. Aortic Valve Trileaflet aortic valve. No aortic valve stenosis or regurgitation. Tricuspid Valve Structurally normal tricuspid valve. No tricuspid stenosis. Trace tricuspid regurgitation. Pulmonic Valve Pulmonic valve not well visualized. No pulmonic stenosis. No pulmonic regurgitation. Pericardium No pericardial effusion. Aorta Aortic annulus normal. Ascending aorta not well visualized. CONCLUSIONS Normal LV size and systolic function No masses Previewed by: Dr. Vaughn Winters MD (Electronically Signed) Final Date: 17 November 2023 12:22
--- NOTE | 2023-11-17 13:43 | US ---
EXAMINATION TYPE: US groin RT DATE OF EXAM: 11/17/2023 COMPARISON: NONE CLINICAL INDICATION: Female, 58 years old with history of evaluate for abscess right groin/upper thig h; Palpable lumps right groin TECHNIQUE: FINDINGS: Multiple lymph nodes right groin, largest 2 = 4.4 x 1.3 x 3.2cm and 2.7 x 0.9 x 1.7cm Some mild subcutaneous soft tissue swelling at the upper thigh. IMPRESSION: Enlarged right inguinal lymph nodes, largest measuring up to 3.2 cm short axis. Correlate for possibl e causes including both reactive, infectious, and neoplastic etiologies.
[2023-11-17 14:31] LABS: Glucose,Whole Blood 124 mg/dL (70-110)
[2023-11-17 18:02] LABS: Glucose,Whole Blood 99 mg/dL (70-110)
--- NOTE | 2023-11-17 18:19 | P.PN ---
Subjective Progress Note Date: 11/17/23 Hospital course: Patient is a pleasant 58-year-old female with a past medical history of hypertension, neuropathy, nicotine dependence, heroin/fentanyl use, and me thadone dependence. She presented to the emergency department on 11/15/2023 with a chief complaint of right lower extremity pain/infected wound. Patient reported that on 11/14/2023 she stepped on a piece of plastic resulting in injury to her foot. Patient reports she was able to remove foreign body/piece of plastic that was stuck in her foot but has since had significant pain, swelling, and redness. She reports she came to the emergency department today as the swelling and redness is now extending up into her lower leg. Upon arrival in the emergency department, patient underwent evaluation. Vital signs upon arrival show blood pressure 205/109, heart rate 87, respiratory rate 16, temp 100.7 F, and SpO2 of 97% on room air. X-ray right foot negative for acute fracture or dislocation showing no signs of foreign body reported by radiologist or noted upon personal review of imaging. Labs completed and reviewed. CBC showing leukocytosis with WBC count of 19.7. BMP showing hypoglycemia with glucose of 65. Lactic acid elevated at 2.3. Liver profile showing elevated AST of 42 otherwise normal findings. Patient reports last injecting heroin and fentanyl on 11/09/23 and denies ever injecting into right lower extremity or foot. Patient started on IV antibiotics and admitted under our services with consultation to infectious disease. Blood cultures preliminarily resulting positive for strep A. Physical exam: Patient seen and fully evaluated at bedside this morning. She again had elevated blood pressures and reported headache and pain to right lower extremity. Patient reports pain extending up into her leg and today has worsening erythema with palpable mass to right inguinal region extending downwards into medial thigh. Vital signs reviewed and stable. General: Nontoxic, no distress and appears stated age. Derm: Skin warm and dry, normal coloration for ethnicity. Right foot plantar region with small puncture wound slightly above midline of the right foot showing small entry point with surrounding erythema and mild swelling extending into ankle and lower region of right lower leg. No digital cyanosis. Patient has noted mass/abscess/enlarged lymph nodes to right inguinal/groin region extending down into right medial thigh Head: Atraumatic, normocephalic and symmetric. Eyes: EOMs intact, no lid lag, and anicteric sclera Mouth: no lip lesions, mucus membranes moist Cardiovascular: regular rate and rhythm with normal S1S2, no murmur, positive posterior tibial pulses bilaterally, and cap refill < 2 seconds. Lungs: Respirations even, regular, and unlabored on room air. Lungs CTA bilaterally, no rhonchi, no rales, no wheezing, and no accessory muscle usage. Abdominal: soft, nontender to palpation, no guarding, no appreciable organomegaly Ext: ROM intact. No gross muscle atrophy, right lower extremity edema, no contractures Neuro: Speech clear, face symmetrical and CN II-XII grossly intact with no noted focal neuro deficits Psych: Alert and oriented to person, place, time, and situation. Appropriate and pleasant affect. Assessment and Plan of Care: Cellulitis right lower extremity Strep A bacteremia Sepsis secondary to above Hypertensive urgency Hypoglycemia, likely secondary to decreased oral intake and sepsis due to current infectious process Lactic acidosis, resolved Leukocytosis, resolved History of IVDA with heroin/fentanyl Methadone dependent -Continue IV antibiotics with cefazolin 2 g every 8 hours -Preliminary blood cultures resulting positive for strep A, will follow-up on final culture and sensitivity report. -Infectious disease following, discontinued vancomycin and started patient on cefazolin -Symptomatic care and pain management with Dilaudid 0.5 mg every 3 hours as needed for moderate pain or 1 mg IVP every 3 hours as needed for severe pain. -Continue glycemic protocol with blood glucose checks every 4 hours, will monitor closely for any further signs of hypoglycemia. -Order placed for repeat morning CBC and BMP to monitor for improvement of leukocytosis and for close monitoring of renal function to monitor for any signs of vancomycin induced renal toxicity. -Patient to resume methadone 130 mg daily along with antihypertensive medication regimen with clonidine 0.3 mg 3 times daily and losartan 50 mg daily, -Lactic acidosis resolved status post IV fluid hydration with repeat lactate of 1.8. -Order placed for ultrasound right groin secondary to right inguinal mass extending down into right medial thigh, rule out abscess versus mass versus enlarged lymph node -Order placed for echocardiogram secondary to strep a bacteremia and history of IVDA. -Tylenol 650 mg p.o. every 6 hours as needed for mild pain/fever. Data reviewed: Morning labs reviewed. CBC showing resolution of leukocytosis with WBC count decreasing from 19.7 down to 9.47 this morning. CBC also revealing mild anemia with hemoglobin of 10.1. BMP showing no significant abnormalities with the exception of repeat episode of hypoglycemia with glucose of 67. Magnesium normal findings at 2.1. Liver profile normal findings. Preliminary blood culture results positive for strep A. Vital signs reviewed. Blood pressure currently elevated at 192/94, heart rate 66, respiratory rate 17, temp 98.7 F, and SpO2 of 98% on room air. Patient given morning antihypertensive medications and BP to be repeated to monitor for improvement. Overnight patient had elevated temp as high as 101.0 F. Order placed for ultrasound right groin and echocardiogram, will follow-up on results once available. CODE STATUS: Full code DVT prophylaxis: Heparin Anticipated discharge date: Clinical course to determine Anticipated discharge place: Home Patient was seen independently by Nurse Pracitioner. This document was prepared using [employer] dictation software. Please allow for errors in private wealth advisor, while rare they do occur. Rosales Trammell NP rendered care for this patient independently, reviewed the findings and plan as documented in the note above. I did not physically speak with or examine the patient on this date. Objective - Vital Signs Vital signs: Vital Signs Temp 98.7 F 11/17/23 07:00 Pulse 66 11/17/23 07:00 Resp 17 11/17/23 07:00 BP 192/94 11/17/23 07:00 Pulse Ox 98 11/17/23 07:00 FiO2 Intake & Output 11/16/23 11/17/23 11/17/23 18:59 06:59 18:59 Intake Total 236 Balance 236 Intake: Oral 236 Other: Voiding Method Toilet Toilet # Voids 3 1 - Labs CBC & Chem 7: 11/18/23 04:43 11/18/23 04:43 Labs: Microbiology - Last 24 Hours (Table) 11/15/23 21:06 Blood Culture Gram Stain - Preliminary Blood Blood Culture - Preliminary Strep A Molecular ID
[2023-11-17 22:11] LABS: Glucose,Whole Blood 92 mg/dL (70-110)
[2023-11-18 01:19] LABS: Glucose,Whole Blood 102 mg/dL (70-110)
[2023-11-18] MEDS: cloNIDine HCL 0.2 MG TAB PO STA (03:18)
[2023-11-18 05:11] LABS: Glucose,Whole Blood 89 mg/dL (70-110)
--- NOTE | 2023-11-18 08:26 | P.PN ---
Subjective Progress Note Date: 11/17/23 Principal diagnosis: Reason for follow-up is right foot cellulitis abscess and bacteremia Patient is a 58-year-old -English female with a past medical history of kidney for hypertension neuropathy and did have a history of drug use presenting to the hospital for evaluation of right foot pain swelling and redness of the patient stepped on a plastic few days prior to that patient diagnosed with right foot cellulitis and did have evidence of strep A bacteremia. On today's evaluation that is 11/17/2023, the patient did spike a fever of 101 F after midnight however is afebrile this afternoon patient is currently sleepy lethargic and did not answer any question no vomiting diarrhea or any other changes reported by the nursing staff. Patient white count is down to 9.47, creatinine 0.8 Objective - Vital Signs Vital signs: Vital Signs Temp 99.4 F 11/17/23 19:01 Pulse 63 11/17/23 19:01 Resp 16 11/17/23 19:01 BP 193/95 11/17/23 19:01 Pulse Ox 98 11/17/23 19:01 FiO2 Intake & Output 11/17/23 11/17/23 11/18/23 06:59 18:59 06:59 Intake Total 222 Balance 222 Intake: Oral 222 Other: Voiding Method Toilet Toilet # Voids 1 2 - Exam GENERAL DESCRIPTION: Middle-aged female lying in bed in no distress RESPIRATORY SYSTEM: Unlabored breathing , decreased breath sounds at bases HEART: S1 S2 regular rate and rhythm , ABDOMEN: Soft , no tenderness EXTREMITIES: Right foot is currently dressed no drainage on the dressing - Labs CBC & Chem 7: 11/17/23 05:52 11/17/23 05:52 Labs: Abnormal Lab Results - Last 24 Hours (Table) 11/17/23 11/17/23 11/17/23 Range/Units 05:52 05:52 14:29 RBC 3.95 L (4.10-5.20) X 10*6/uL Hgb 10.1 L (12.0-15.0) g/dL Hct 33.0 L (37.2-46.3) % MCH 25.6 L (27.0-32.0) pg MCHC 30.6 L (32.0-37.0) g/dL RDW 16.6 H (11.5-14.5) % MPV 13.3 H (9.5-12.2) FL Carbon Dioxide 21.4 L (21.6-31.8) mmol/L Glucose 67 L (70-110) mg/dL POC Glucose (mg/dL) 124 H (70-110) mg/dL Calcium 8.4 L (8.7-10.3) mg/dL Total Bilirubin <0.2 L (0.3-1.2) mg/dL Total Protein 5.6 L (6.2-8.2) g/dL Albumin 3.2 L (3.8-4.9) g/dL Albumin/Globulin Ratio 1.33 L (1.60-3.17) Ratio Microbiology - Last 24 Hours (Table) 11/15/23 21:06 Blood Culture Gram Stain - Preliminary Blood Blood Culture - Preliminary Strep A Molecular ID Assessment and Plan (1) Bacteremia due to Streptococcus Current Visit: Yes Status: Acute Code(s): R78.81 - BACTEREMIA; B95.5 - UNSP STREPTOCOCCUS THE CAUSE OF DISEASES [facility] SNOMED Code(s): 464571140985 (2) Cellulitis of right lower extremity Current Visit: Yes Status: Acute Code(s): L03.115 - CELLULITIS OF RIGHT LOWER LIMB SNOMED Code(s): 31349295620546483 (3) Foot infection Current Visit: Yes Status: Acute Code(s): L08.9 - LOCAL INFECTION OF THE SKIN AND SUBCUTANEOUS TISSUE, UNSP SNOMED Code(s): 888875069 Plan: 1patient [facility] with sepsis in this patient who did have fever elevated white count source is right foot cellulitis in this patient presented with right foot injury from stepping on a plastic and did have evidence of cellulitis. Likely from gram-positive skin natali 2Streptococcus pyogenes bacteremia source likely right foot cellulitis 3-patient with ceftriaxone allergy describing his swelling/diarrhea clinical or true allergy as the patient mention she has taken Keflex without any problem 4-blood cultures has been repeated document clearance of bacteremia 5-patient has tolerated cefazolin and will continue cefazolin 2 g every 8 hours Dictation was produced using [employer] dictation software. please excuse any grammatical, word or spelling errors. Time with Patient: Less than 30
[2023-11-18 09:17] LABS: HCT 31.8 % (37.2-46.3); HGB 9.8 g/dL (12.0-15.0); MCH 24.8 pg (27.0-32.0); MCHC 30.8 g/dL (32.0-37.0); MCV 80.5 FL (80.0-97.0); Mean Platelet Volume 12.9 FL (9.5-12.2); NRBC Per 100 WBC 0 X 10*3/uL (0.00-0.01); Platelet Count 222 X 10*3/uL (140-440); RBC 3.95 X 10*6/uL (4.10-5.20); RDW 16.5 % (11.5-14.5); WBC 9.36 X 10*3/uL (4.50-10.00)
[2023-11-18 09:46] LABS: ALT 23 U/L (8-44); AST 22 U/L (13-35); Albumin 3.2 g/dL (3.8-4.9); Albumin/Globulin Ratio 1.19 Ratio (1.60-3.17); Alkaline Phosphatase 93 U/L (41-126); BUN/Creat Ratio 15.86 Ratio (12.00-20.00); Blood Urea Nitrogen 11.1 mg/dL (9.0-27.0); Calcium 8.5 mg/dL (8.7-10.3); Carbon Dioxide 23.3 mmol/L (21.6-31.8); Chloride 106 mmol/L (96-109); Globulin 2.7 g/dL (1.6-3.3); Glucose 81 mg/dL (70-110); Magnesium 1.9 mg/dL (1.5-2.4); Potassium 3.7 mmol/L (3.5-5.5); Sodium 141 mmol/L (135-145); Total Bilirubin 0.2 mg/dL (0.3-1.2); Total Protein 5.9 g/dL (6.2-8.2)
--- NOTE | 2023-11-18 09:50 | CT ---
EXAMINATION TYPE: CT foot RT w con DATE OF EXAM: 11/18/2023 COMPARISON: Radiograph 11/15/2023 HISTORY: 58-year-old female right foot pain from injury, rule out foreign body and abscess, stepped o n a sharp plastic object, right foot pain TECHNIQUE: Contiguous axial scanning of the right foot performed with IV Contrast, patient injected w ith 100 mL of Isovue 300. Coronal/sagittal reconstructions performed. 3-D reconstructions generated o n a dedicated independent workstation. CT DLP: 261.0 mGycm Automated exposure control for dose reduction was used. FINDINGS: There is mild degenerative change first MTP joint. Additional more moderate degenerative change of th e first metatarsal sesamoid joint. Hallux valgus formation with bunion. Hammertoes are present. Small plantar heel spur. Type I accessory navicular. Corticated ossific density inferior lateral malleolus suggesting sequela of remote injury. Some focal osteoarthritic change at the second TMT joint and second-third intermetatarsal joint with subchondral cystic change. Suspect old healed fracture performing the at the proximal shaft of the fi fth metatarsal. There is generalized soft tissue swelling. No radiopaque foreign body is identified. There is a small obliquely oriented fluid collection measuring 2.1 x 1.0 cm and 7 mm thick along the plantar aspect o f the foot just proximal to the mid ball of foot. Refer to sagittal image 28, coronal image 53, and a xial image 65. No underlying periostitis or osteolysis. Smooth delineation to the Achilles tendon. Suspect onychomycosis of the toes. IMPRESSION: 1. GENERALIZED SUBCUTANEOUS SOFT TISSUE SWELLING. No retained radiopaque foreign body is identified t magnus retained plastic may not be well seen by CT. 2. A poorly defined 2.1 x 1.0 x 0.7 cm fluid collection along the plantar aspect, just proximal to th e ball of the foot (sagittal image 28 and axial image 65). Small area of early abscess is not exclude d especially if this is the site of patient's injury. 3. Some scattered mild to moderate osteophytic change and old healed fracture deformity fifth metatar edison. Hammertoes.
[2023-11-18 10:36] LABS: Glucose,Whole Blood 128 mg/dL (70-110)
[2023-11-18] MEDS: KETOROLAC 15 MG/ML 1 ML VIAL IVP STA (12:46)
[2023-11-18] MEDS: PROCHLORPERAZINE INJ 10 MG/2 ML VIAL IVP STA (12:47)
[2023-11-18] MEDS: LOSARTAN 50 MG TAB PO STA (12:47)
[2023-11-18] MEDS: diphenhydrAMINE 50 MG/ML 1 ML VIAL IVP STA (12:47)
[2023-11-18 14:16] LABS: Glucose,Whole Blood 130 mg/dL (70-110)
--- NOTE | 2023-11-18 14:56 | P.PN ---
Subjective Progress Note Date: 11/18/23 Hospital course: Patient is a pleasant 58-year-old female with a past medical history of hypertension, neuropathy, nicotine dependence, heroin/fentanyl use, and me thadone dependence. She presented to the emergency department on 11/15/2023 with a chief complaint of right lower extremity pain/infected wound. Patient reported that on 11/14/2023 she stepped on a piece of plastic resulting in injury to her foot. Patient reports she was able to remove foreign body/piece of plastic that was stuck in her foot but has since had significant pain, swelling, and redness. She reports she came to the emergency department today as the swelling and redness is now extending up into her lower leg. Upon arrival in the emergency department, patient underwent evaluation. Vital signs upon arrival show blood pressure 205/109, heart rate 87, respiratory rate 16, temp 100.7 F, and SpO2 of 97% on room air. X-ray right foot negative for acute fracture or dislocation showing no signs of foreign body reported by radiologist or noted upon personal review of imaging. Labs completed and reviewed. CBC showing leukocytosis with WBC count of 19.7. BMP showing hypoglycemia with glucose of 65. Lactic acid elevated at 2.3. Liver profile showing elevated AST of 42 otherwise normal findings. Patient reports last injecting heroin and fentanyl on 11/09/23 and denies ever injecting into right lower extremity or foot. Patient started on IV antibiotics and admitted under our services with consultation to infectious disease. Blood cultures preliminarily resulting positive for strep A. Repeat cultures ordered and pending. Physical exam: Patient seen and fully evaluated at bedside this morning. Patient again having headache upon awakening this morning with hypertension with blood pressure again 212/93. Order being placed for migraine cocktail, increase losartan to 100 mg daily and started patient on hydralazine 25 mg 4 times daily. Vital signs reviewed and stable. General: Nontoxic, no distress and appears stated age. Derm: Skin warm and dry, normal coloration for ethnicity. Right foot plantar region with small puncture wound slightly above midline of the right foot showing small entry point with surrounding erythema and mild swelling extending into ankle and lower region of right lower leg. No digital cyanosis. Patient has noted mass/abscess/enlarged lymph nodes to right inguinal/groin region extending down into right medial thigh Head: Atraumatic, normocephalic and symmetric. Eyes: EOMs intact, no lid lag, and anicteric sclera Mouth: no lip lesions, mucus membranes moist Cardiovascular: regular rate and rhythm with normal S1S2, no murmur, positive posterior tibial pulses bilaterally, and cap refill < 2 seconds. Lungs: Respirations even, regular, and unlabored on room air. Lungs CTA bilat erally, no rhonchi, no rales, no wheezing, and no accessory muscle usage. Abdominal: soft, nontender to palpation, no guarding, no appreciable organomegaly Ext: ROM intact. No gross muscle atrophy, right lower extremity edema, no contractures Neuro: Speech clear, face symmetrical and CN II-XII grossly intact with no noted focal neuro deficits Psych: Alert and oriented to person, place, time, and situation. Appropriate and pleasant affect. Assessment and Plan of Care: Cellulitis right lower extremity Strep A bacteremia Sepsis secondary to above Hypertensive urgency Hypoglycemia, likely secondary to decreased oral intake and sepsis due to current infectious process History of IVDA with heroin/fentanyl Methadone dependent -Continue IV antibiotics with cefazolin 2 g every 8 hours -Preliminary blood cultures resulting positive for strep A, will follow-up on final culture and sensitivity report and repeat blood cultures were ordered. -Infectious disease following, reviewed documentation in chart -Symptomatic care and pain management with Dilaudid 0.5 mg every 3 hours as needed for moderate pain or 1 mg IVP every 3 hours as needed for severe pain. -Continue glycemic protocol with blood glucose checks every 4 hours, will monitor closely for any further signs of hypoglycemia. -Order placed for repeat morning CBC and BMP to monitor for improvement of leukocytosis and for close monitoring of renal function to monitor for any signs of vancomycin induced renal toxicity. -Patient to resume methadone 130 mg daily. -Secondary to persistently elevated blood pressures with systolic pressures greater than 200, patient's losartan increased to 100 mg daily and she was started on hydralazine 25 mg 4 times daily in addition to her clonidine point 3 mg 3 times daily. Ordered for vital signs to be assessed every 4 hours for c lose monitoring. -Ultrasound right groin completed showing multiple enlarged inguinal lymph nodes throughout right groin with largest measuring 4.4 x 1.3 x 3.2 cm -Echocardiogram completed showing normal preserved EF of 60 to 65% with no signs of vegetative growth reported. -Tylenol 650 mg p.o. every 6 hours as needed for mild pain/fever. Lactic acidosis, resolved Leukocytosis, resolved Data and imaging reviewed: -Ultrasound right groin completed showing multiple enlarged inguinal lymph nodes throughout right groin with largest measuring 4.4 x 1.3 x 3.2 cm -Echocardiogram completed showing normal preserved EF of 60 to 65% with no signs of vegetative growth reported. -Morning labs reviewed. CBC showing microcytic anemia with hemoglobin of 9.8. BMP unremarkable. Magnesium 1.9. -Vital signs reviewed. Blood pressure remains persistently hypertensive with blood pressure 212/93, heart rate 59, respiratory rate 17, temp 98.5 F, and SpO2 of 97% on room air. Temperature high over the past 24 hours is 99.9 F. CODE STATUS: Full code DVT prophylaxis: Heparin Anticipated discharge date: Clinical course to determine Anticipated discharge place: Home Patient was seen independently by Nurse Pracitioner. This document was prepared using [employer] dictation software. Please allow for errors in railroad yard worker, while rare they do occur. .Rosales Trammell BIOMEDICAL TECHNICIAN rendered care for this patient independently, reviewed the findings and plan as documented in the note above. I did not physically speak with or examine the patient on this date. Objective - Vital Signs Vital signs: Vital Signs Temp 98.5 F 11/18/23 07:10 Pulse 59 L 11/18/23 07:10 Resp 17 11/18/23 07:10 BP 212/93 11/18/23 07:10 Pulse Ox 97 11/18/23 07:10 FiO2 Intake & Output 11/17/23 11/18/23 11/18/23 18:59 06:59 18:59 Intake Total 222 Balance 222 Intake: Oral 222 Other: Voiding Method Toilet Toilet # Voids 2 1 - Labs CBC & Chem 7: 11/18/23 04:43 11/18/23 04:43 Labs: Abnormal Lab Results - Last 24 Hours (Table) 11/17/23 11/17/23 11/17/23 Range/Units 05:52 05:52 14:29 RBC 3.95 L (4.10-5.20) X 10*6/uL Hgb 10.1 L (12.0-15.0) g/dL Hct 33.0 L (37.2-46.3) % MCH 25.6 L (27.0-32.0) pg MCHC 30.6 L (32.0-37.0) g/dL RDW 16.6 H (11.5-14.5) % MPV 13.3 H (9.5-12.2) FL Carbon Dioxide 21.4 L (21.6-31.8) mmol/L Glucose 67 L (70-110) mg/dL POC Glucose (mg/dL) 124 H (70-110) mg/dL Calcium 8.4 L (8.7-10.3) mg/dL Total Bilirubin <0.2 L (0.3-1.2) mg/dL Total Protein 5.6 L (6.2-8.2) g/dL Albumin 3.2 L (3.8-4.9) g/dL Albumin/Globulin Ratio 1.33 L (1.60-3.17) Ratio
[2023-11-18] MEDS: hydrALAZINE HCL 25 MG TAB PO SCH (15:14)
[2023-11-18] MEDS: LORazepam 2 MG/ML INJ IV PRN (15:44)
[2023-11-18 18:03] LABS: Glucose,Whole Blood 126 mg/dL (70-110)
[2023-11-18 21:25] LABS: Glucose,Whole Blood 96 mg/dL (70-110)
[2023-11-19] MEDS: traZODone HCL 50 MG TAB PO PRN (01:15)
[2023-11-19 02:11] LABS: Glucose,Whole Blood 106 mg/dL (70-110)
[2023-11-19] MEDS: hydrALAZINE HCL 25 MG TAB PO STA (04:38)
[2023-11-19 06:18] LABS: Glucose,Whole Blood 85 mg/dL (70-110)
[2023-11-19] MEDS: LOSARTAN 50 MG TAB PO SCH (09:00)
[2023-11-19 10:09] LABS: Glucose,Whole Blood 138 mg/dL (70-110)
--- NOTE | 2023-11-19 10:27 | P.PN ---
Subjective Progress Note Date: 11/18/23 Principal diagnosis: Reason for follow-up is right foot cellulitis abscess and bacteremia Patient is a 58-year-old -[place] female with a past medical history of kidney for hypertension neuropathy and did have a history of drug use presenting to the hospital for evaluation of right foot pain swelling and redness of the patient stepped on a plastic few days prior to that patient diagnosed with right foot cellulitis and did have evidence of strep A bacteremia. On today's evaluation that is 11/18/2023, Patient is afebrile patient is currently on room air and denies having any shortness of breath, the patient denies any chest pain or cough, the patient denies any nausea vomiting did not have any abdominal pain and no diarrhea, still complaining of pain and swelling to the right foot but no worsening and no drainage. Patient white count of 9.36, creatinine 0.[address] patient did [address] a [address] of the foot this shows generalized soft tissue swelling poorly defined 2.1 X1.0x0.7 cm fluid collection questionable liver abscess Objective - Vital Signs Vital signs: Vital Signs Temp 99.4 F 11/18/23 14:05 Pulse 61 11/18/23 14:05 Resp 16 11/18/23 14:05 BP 211/83 11/18/23 14:05 Pulse Ox 96 11/18/23 14:05 FiO2 Intake & Output 11/17/23 11/18/23 11/18/23 18:59 06:59 18:59 Intake Total 222 118 Balance 222 118 Intake: Oral 222 118 Other: Voiding Method Toilet Toilet Toilet # Voids 2 1 - Exam GENERAL DESCRIPTION: Middle-aged female lying in bed in no distress RESPIRATORY SYSTEM: Unlabored breathing , decreased breath sounds at bases HEART: S1 S2 regular rate and rhythm , ABDOMEN: Soft , no tenderness EXTREMITIES: Right foot is currently dressed no drainage on the dressing - Labs CBC & Chem 7: 11/18/23 04:43 11/18/23 04:43 Labs: Abnormal Lab Results - Last 24 Hours (Table) 11/18/23 11/18/23 11/18/23 Range/Units 04:43 04:43 10:34 RBC 3.95 L (4.10-5.20) X 10*6/uL Hgb 9.8 L (12.0-15.0) g/dL Hct 31.8 L (37.2-46.3) % MCH 24.8 L (27.0-32.0) pg MCHC 30.8 L (32.0-37.0) g/dL RDW 16.5 H (11.5-14.5) % MPV 12.9 H (9.5-12.2) FL POC Glucose (mg/dL) 128 H (70-110) mg/dL Calcium 8.5 L (8.7-10.3) mg/dL Total Bilirubin 0.2 L (0.3-1.2) mg/dL Total Protein 5.9 L (6.2-8.2) g/dL Albumin 3.2 L (3.8-4.9) g/dL Albumin/Globulin Ratio 1.19 L (1.60-3.17) Ratio 11/18/23 Range/Units 14:14 RBC (4.10-5.20) X 10*6/uL Hgb (12.0-15.0) g/dL Hct (37.2-46.3) % MCH (27.0-32.0) pg MCHC (32.0-37.0) g/dL RDW (11.5-14.5) % MPV (9.5-12.2) FL POC Glucose (mg/dL) 130 H (70-110) mg/dL Calcium (8.7-10.3) mg/dL Total Bilirubin (0.3-1.2) mg/dL Total Protein (6.2-8.2) g/dL Albumin (3.8-4.9) g/dL Albumin/Globulin Ratio (1.60-3.17) Ratio Microbiology - Last 24 Hours (Table) 11/15/23 21:06 Blood Culture Gram Stain - Final Blood Blood Culture - Final Strep A Molecular ID Assessment and Plan (1) Bacteremia due to Streptococcus Current Visit: Yes Status: Acute Code(s): R78.81 - BACTEREMIA; B95.5 - UNSP STREPTOCOCCUS THE CAUSE OF DISEASES CLASSD [facility] SNOMED Code(s): 717338732757 (2) Cellulitis of right lower extremity Current Visit: Yes Status: Acute Code(s): L03.115 - CELLULITIS OF RIGHT LOWER LIMB SNOMED Code(s): 72890744880164034 (3) Foot infection Current Visit: Yes Status: Acute Code(s): L08.9 - LOCAL INFECTION OF THE SKIN AND SUBCUTANEOUS TISSUE, UNSP SNOMED Code(s): 896270113 Plan: 1patient presented hospital with sepsis in this patient who did have fever elevated white count source is right foot cellulitis in this patient presented with right foot injury from stepping on a plastic and did have evidence of cellulitis. Likely from gram-positive skin natali 2Streptococcus pyogenes bacteremia source likely right foot cellulitis 3-patient with ceftriaxone allergy describing his swelling/diarrhea clinical or true allergy as the patient mention she has taken Keflex without any problem 4-blood cultures has been repeated document clearance of bacteremia 5-patient did have a CT of the right foot concerning for small fluid collection likely abscess may benefit from this procedure evaluation for possible drainage patient has tolerated cefazolin to continue and monitor clinical course closely Dictation was produced using [employer] dictation software. please excuse any grammatical, word or spelling errors. Time with Patient: Less than 30
--- NOTE | 2023-11-19 14:56 | P.PN ---
Subjective Progress Note Date: 11/19/23 Hospital course: Patient is a pleasant 58-year-old female with a past medical history of hypertension, neuropathy, nicotine dependence, heroin/fentanyl use, and me thadone dependence. She presented to the emergency department on 11/15/2023 with a chief complaint of right lower extremity pain/infected wound. Patient reported that on 11/14/2023 she stepped on a piece of plastic resulting in injury to her foot. Patient reports she was able to remove foreign body/piece of plastic that was stuck in her foot but has since had significant pain, swelling, and redness. She reports she came to the emergency department today as the swelling and redness is now extending up into her lower leg. Upon arrival in the emergency department, patient underwent evaluation. Vital signs upon arrival show blood pressure 205/109, heart rate 87, respiratory rate 16, temp 100.7 F, and SpO2 of 97% on room air. X-ray right foot negative for acute fracture or dislocation showing no signs of foreign body reported by radiologist or noted upon personal review of imaging. Labs completed and reviewed. CBC showing leukocytosis with WBC count of 19.7. BMP showing hypoglycemia with glucose of 65. Lactic acid elevated at 2.3. Liver profile showing elevated AST of 42 otherwise normal findings. Patient reports last injecting heroin and fentanyl on 11/09/23 and denies ever injecting into right lower extremity or foot. Patient started on IV antibiotics and admitted under our services with consultation to infectious disease. Blood culture positive for strep A. Repeat blood cultures ordered and pending. Echocardiogram completed showing normal preserved EF of 60 to 65% with no signs of vegetative growth reported. Ultrasound right groin completed showing multiple enlarged inguinal lymph nodes throughout right groin with largest measuring 4.4 x 1.[address] right foot showing generalized subcutaneous soft tissue swelling with no retained radiopaque foreign body identified and a poorly defined 2.1 x 1.0 x 0.7 cm fluid collection along the plantar aspect just proximal to the ball of the foot, likely small area of abscess. Physical exam: Patient seen and fully evaluated at bedside this morning. Patient reports mod erate pain to right lower extremity from foot extending into right upper thigh this morning and also again having a headache upon awakening. Vital signs reviewed and stable. General: Nontoxic, no distress and appears stated age. Thin and frail build. Derm: Skin warm and dry, normal coloration for ethnicity. Right foot plantar region with small puncture wound slightly above midline of the right foot showing small entry point with surrounding erythema and mild swelling extending into ankle and lower region of right lower leg. No digital cyanosis. Patient has noted mass/enlarged lymph nodes to right inguinal/groin region extending down into right medial thigh surrounded by erythema Head: Atraumatic, normocephalic and symmetric. Eyes: EOMs intact, no lid lag, and anicteric sclera Mouth: no lip lesions, mucus membranes moist Cardiovascular: regular rate and rhythm with normal S1S2, no murmur, positive posterior tibial pulses bilaterally, and cap refill < 2 seconds. Lungs: Respirations even, regular, and unlabored on room air. Lungs CTA bilaterally, no rhonchi, no rales, no wheezing, and no accessory muscle usage. Abdominal: soft, nontender to palpation, no guarding, no appreciable organomegaly Ext: ROM intact. No gross muscle atrophy, right lower extremity edema, no contra ctures Neuro: Speech clear, face symmetrical and CN II-XII grossly intact with no noted focal neuro deficits Psych: Alert and oriented to person, place, time, and situation. Appropriate and pleasant affect. Assessment and Plan of Care: Cellulitis right lower extremity Strep A bacteremia Sepsis secondary to above Hypertensive urgency Hypoglycemia, likely secondary to decreased oral intake and sepsis due to current infectious process History of IVDA with heroin/fentanyl Methadone dependent -Blood cultures resulting positive for strep A, repeat blood cultures pending -Continue IV antibiotics with cefazolin 2 g every 8 hours -CT right foot showing generalized subcutaneous soft tissue swelling with no retained radiopaque foreign body identified and a poorly defined 2.1 x 1.0 x 0.7 cm fluid collection along the plantar aspect just proximal to the ball of the foot, likely small area of abscess. -Ultrasound right groin completed showing multiple enlarged inguinal lymph nodes throughout right groin with largest measuring 4.4 x 1.3 x 3.2 cm -Infectious disease following, discussed plan of care with Dr. Loyola. -Placed for consult to Dr. Reed secondary to abscess of right foot plantar region -Continue symptomatic care and pain management with Tylenol as needed for mild pain/fever, Dilaudid 0.5 mg every 3 hours as needed for moderate pain or 1 mg IVP every 3 hours as needed for severe pain. -Continue glycemic protocol with blood glucose checks changed to every 8 hours as patient has had no further episodes of hypoglycemia, will monitor closely for any further signs of hypoglycemia. -Continue methadone 130 mg daily. -Secondary to persistently elevated blood pressures with systolic pressures greater than 200, patient's losartan was increased to 100 mg daily and patient was started on hydralazine 25 mg 4 times daily in addition to her clonidine point 3 mg 3 times daily. -Continued close monitoring of vital signs every 4 hours for close monitoring. Lactic acidosis, resolved Leukocytosis, resolved Data and imaging reviewed: -CT right foot showing generalized subcutaneous soft tissue swelling with no retained radiopaque foreign body identified and a poorly defined 2.1 x 1.0 x 0.7 cm fluid collection along the plantar aspect just proximal to the ball of the foot, likely small area of abscess. -Vital signs reviewed. Blood pressure remains persistently hypertensive but slightly improving with blood pressure 180/84, heart rate 65, respiratory rate 17, temp 99.0 F, and SpO2 of 98% on room air. Temperature high over the past 24 hours is 99.7 F. CODE STATUS: Full code DVT prophylaxis: Heparin Anticipated discharge date: Clinical course to determine Anticipated discharge place: Home Patient was seen independently by Nurse Pracitioner. This document was prepared using [employer] dictation software. Please allow for errors in biogeographer, while rare they do occur. .Rosales Trammell NP rendered care for this patient independently, reviewed the findings and plan as documented in the note above. I did not physically speak with or examine the patient on this date. Objective - Vital Signs Vital signs: Vital Signs Temp 99.0 F 11/19/23 06:41 Pulse 65 11/19/23 06:41 Resp 17 11/19/23 06:41 BP 180/84 11/19/23 06:41 Pulse Ox 98 11/19/23 06:41 FiO2 Intake & Output 11/18/23 11/19/23 11/19/23 18:59 06:59 18:59 Intake Total 236 Balance 236 Intake: Oral 236 Other: Voiding Method Toilet Toilet # Voids 2 2 # Bowel Movements 1 - Labs CBC & Chem 7: 11/18/23 04:43 11/18/23 04:43 Labs: Abnormal Lab Results - Last 24 Hours (Table) 11/18/23 11/18/23 11/18/23 Range/Units 04:43 04:43 10:34 RBC 3.95 L (4.10-5.20) X 10*6/uL Hgb 9.8 L (12.0-15.0) g/dL Hct 31.8 L (37.2-46.3) % MCH 24.8 L (27.0-32.0) pg MCHC 30.8 L (32.0-37.0) g/dL RDW 16.5 H (11.5-14.5) % MPV 12.9 H (9.5-12.2) FL POC Glucose (mg/dL) 128 H (70-110) mg/dL Calcium 8.5 L (8.7-10.3) mg/dL Total Bilirubin 0.2 L (0.3-1.2) mg/dL Total Protein 5.9 L (6.2-8.2) g/dL Albumin 3.2 L (3.8-4.9) g/dL Albumin/Globulin Ratio 1.19 L (1.60-3.17) Ratio 11/18/23 11/18/23 Range/Units 14:14 18:01 RBC (4.10-5.20) X 10*6/uL Hgb (12.0-15.0) g/dL Hct (37.2-46.3) % MCH (27.0-32.0) pg MCHC (32.0-37.0) g/dL RDW (11.5-14.5) % MPV (9.5-12.2) FL POC Glucose (mg/dL) 130 H 126 H (70-110) mg/dL Calcium (8.7-10.3) mg/dL Total Bilirubin (0.3-1.2) mg/dL Total Protein (6.2-8.2) g/dL Albumin (3.8-4.9) g/dL Albumin/Globulin Ratio (1.60-3.17) Ratio Microbiology - Last 24 Hours (Table) 11/15/23 21:06 Blood Culture Gram Stain - Final Blood Blood Culture - Final Strep A Molecular ID
[2023-11-19] MEDS: diphenhydrAMINE 50 MG/ML 1 ML VIAL IVP STA (16:36)
[2023-11-19] MEDS: KETOROLAC 15 MG/ML 1 ML VIAL IVP STA (16:37)
[2023-11-19] MEDS: PROCHLORPERAZINE INJ 10 MG/2 ML VIAL IVP STA (16:37)
--- NOTE | 2023-11-19 16:50 | P.PN ---
Subjective Progress Note Date: 11/19/23 Principal diagnosis: Reason for follow-up is right foot cellulitis abscess and bacteremia Patient is a 58-year-old -Citizen Of [place] female with a past medical history of kidney for hypertension neuropathy and did have a history of drug use presenting to the hospital for evaluation of right foot pain swelling and redness of the patient stepped on a plastic few days prior to that patient diagnosed with right foot cellulitis and did have evidence of strep A bacteremia. On today's evaluation that is 11/19/2023, patient has been afebrile, patient is breathing comfortably and is currently on room air, patient denies having any significant cough no chest pain shortness of breath, patient denies nausea vomiting or diarrhea and no abdominal pain, patient complaining of some urinary symptoms pain to the right foot has slightly decreased in intensity No new labs were obtained today Objective - Vital Signs Vital signs: Vital Signs Temp 98.9 F 11/19/23 13:50 Pulse 90 11/19/23 13:50 Resp 17 11/19/23 13:50 BP 176/82 11/19/23 15:09 Pulse Ox 95 11/19/23 13:50 FiO2 Intake & Output 11/18/23 11/19/23 11/19/23 18:59 06:59 18:59 Intake Total 236 486 Balance 236 486 Intake: Oral 236 486 Other: Voiding Method Toilet Toilet Toilet # Voids 2 2 # Bowel Movements 1 - Exam GENERAL DESCRIPTION: Middle-aged female lying in bed in no distress RESPIRATORY SYSTEM: Unlabored breathing , decreased breath sounds at bases HEART: S1 S2 regular rate and rhythm , ABDOMEN: Soft , no tenderness EXTREMITIES: Right foot is currently dressed no drainage on the dressing - Labs CBC & Chem 7: 11/18/23 04:43 11/18/23 04:43 Labs: Abnormal Lab Results - Last 24 Hours (Table) 11/18/23 11/19/23 Range/Units 18:01 10:08 POC Glucose (mg/dL) 126 H 138 H (70-110) mg/dL Microbiology - Last 24 Hours (Table) 11/15/23 21:06 Blood Culture Gram Stain - Final Blood Blood Culture - Final Strep A Molecular ID Assessment and Plan (1) Bacteremia due to Streptococcus Current Visit: Yes Status: Acute Code(s): R78.81 - BACTEREMIA; B95.5 - UNSP STREPTOCOCCUS THE [facility] Code(s): 566534158650 (2) Cellulitis of right lower extremity Current Visit: Yes Status: Acute Code(s): L03.115 - CELLULITIS OF RIGHT LOWER LIMB SNOMED Code(s): 04759875471564673 (3) Foot infection Current Visit: Yes Status: Acute Code(s): L08.9 - LOCAL INFECTION OF THE SKIN AND SUBCUTANEOUS TISSUE, UNSP SNOMED Code(s): 455801788 Plan: 1patient presented hospital with sepsis in this patient who did have fever elevated white count source is right foot cellulitis in this patient presented with right foot injury from stepping on a plastic and did have evidence of cellulitis. Likely from gram-positive skin natali 2Streptococcus pyogenes bacteremia source likely right foot cellulitis 3-patient with ceftriaxone allergy describing his swelling/diarrhea clinical or true allergy as the patient mention she has taken Keflex without any problem 4-blood cultures has been repeated document clearance of bacteremia 5-patient did have a CT of the right foot concerning for small fluid collection likely abscess may benefit by vascular surgery evaluation for possible drainage this has been discussed with admitting team continue cefazolin 6-patient did have urinary symptoms we will check a UA and culture Dictation was produced using [employer] dictation software. please excuse any gramma tical, word or spelling errors. Time with Patient: Less than 30
--- NOTE | 2023-11-19 17:37 | P.CON ---
Consult Note - . Consult date: 11/19/23 Assessment/Plan:: Podiatric surgery consult Chief complaint: Abscess right foot HPI: This is a 58-year-old female presenting to the ER with complaints of right foot pain. She is a diabetic with neuropathy. She states she broke one of her hair clips and stepped on the plastic. She noticed this on . She pulled this piece out of her foot. She started having swelling and redness to the foot and presented to the ER. Patient rates the pain as a 0 out of 10 to her right foot but states she had swelling extending up into the level of the thigh. Patient states that this is greatly improved since her admission and IV antibiotics. She has been followed closely by Dr. Loyola with infectious disease. Patient denies any history of ulceration to her feet previously. 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 Patient denies any history of scleroderma. Patient states she does not recall her last A1c. She denies any nausea, vomiting, fever, chills, shortness of breath, calf pain, chest pain. Review of systems: No vision changes no ear pain no headache No shortness of breath no chest pain no cough Right lower extremity pain and swelling + Neuropathy bilateral lower extremity Lower extremity physical exam: A&O x 3, NAD Vascular: Nonpalpable DP to the right foot. PT pulse bilateral is 1 out of 4. DP pulse to the left foot is 2 out of 4. CFT less than 3 seconds to all digits +1 edema to right lower extremity extending from midfoot to below the knee Minimal erythema of the right leg in comparison to the left Derm: Superficial hyperkeratosis to plantar right foot was debrided today. Predebridement measured 0.8 x 0.8 cm and postdebridement measured 1.0 x 1.2 x 0.1 cm. There is no break in the soft tissue or signs of underlying abscess. No palpable fluctuance or crepitus. No probe passed the dermal tissue. No erythema to the plantar foot. Nails 1 through 10 are severely dystrophic, fungal with subungual debris. 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 Neuro: 0 out of 10 [place] monofilament bilateral. Light touch sensation i ntact to the level of the mid tibia. MSK: No pain with palpation of plantar foot. Hammering of digits 1 through 5 bilateral. No pain with compression of the calves. Calves are soft and supple. Assessment: 1. Cellulitis right lower extremity 2. Diabetes mellitus with peripheral neuropathy Plan: With patient verbal consent a 15 blade was used to debride hyperkeratotic tissue to the plantar right foot. No break into the subcutaneous tissue was appreciated. No palpable fluctuance or crepitus noted. No clinical signs of deep abscess are appreciated. Swabbed with alcohol and Mepilex border applied. Patient to weight-bear as tolerated. Patient's white count continues to greatly improve on oral antibiotics and is stable at this time. I did review patient's CT in great detail. There may be a mild soft tissue increase in density in this area but I do not believe this is currently fluid- filled. I recommend continued IV antibiotic per infectious disease recommendation. I also recommend close follow-up as outpatient in my podiatric office in order to evaluate this area and her overall foot health. Discussed with patient if she does not improve we may proceed with incision and drainage but at this time I see no clinical concern for this. Will continue to follow. Nicole Reed DPM, AACFAS Podatric Surgery
[2023-11-19 17:40] LABS: Glucose,Whole Blood 91 mg/dL (70-110)
[2023-11-19] MEDS: FLUTICASONE 50MCG/SPRAY NASAL 16GM EA NOSTRIL PRN (18:16)
[2023-11-19 22:04] LABS: Glucose,Whole Blood 89 mg/dL (70-110)
[2023-11-20 02:10] LABS: Appearance,Urine Clear (Clear); Bilirubin,Urine Negative (Negative); Blood,Urine Negative (Negative); Color,Urine Yellow; Glucose,Urine (UA) Negative (Negative); Ketones,Urine Negative (Negative); Leukocyte Esterase,Urine Negative (Negative); Nitrite,Urine Negative (Negative); PH, Urine 6.5 (5.0-8.0); Protein,Urine Negative (Negative); Specific Gravity,Urine 1.022 (1.001-1.035); Urobilinogen,Urine <2.0 mg/dL (<2.0)
[2023-11-20] MEDS: hydrALAZINE HCL 25 MG TAB PO STA ×2 (04:24→17:38)
[2023-11-20 05:22] LABS: Glucose,Whole Blood 131 mg/dL (70-110)
[2023-11-20 12:05] LABS: Glucose,Whole Blood 99 mg/dL (70-110)
--- NOTE | 2023-11-20 12:43 | P.PN ---
Subjective Progress Note Date: 11/20/23 Principal diagnosis: Reason for follow-up is right foot cellulitis abscess and bacteremia Patient is a 58-year-old -[place] female with a past medical history of kidney for hypertension neuropathy and did have a history of drug use presenting to the hospital for evaluation of right foot pain swelling and redness of the patient stepped on a plastic few days prior to that patient diagnosed with right foot cellulitis and did have evidence of strep A bacteremia. On today's evaluation that is 11/20/2023,the patient denies any fever or any chills, patient is breathing comfortably on room air, the patient denies chest pain shortness of breath and no significant cough, patient denies abdominal pain, no nausea vomiting or diarrhea or pain to the right foot. No labs ordered today urine has been negative Objective - Vital Signs Vital signs: Vital Signs Temp 99.2 F 11/20/23 10:00 Pulse 79 11/20/23 10:00 Resp 16 11/20/23 10:00 BP 184/88 11/20/23 10:00 Pulse Ox 98 11/20/23 10:00 FiO2 Intake & Output 11/19/23 11/20/23 11/20/23 18:59 06:59 18:59 Intake Total 486 240 Balance 486 240 Intake: Oral 486 240 Other: Voiding Method Toilet Toilet Toilet # Voids 4 2 - Labs CBC & Chem 7: 11/18/23 04:43 11/18/23 04:43 Labs: Abnormal Lab Results - Last 24 Hours (Table) 11/20/23 Range/Units 05:20 POC Glucose (mg/dL) 131 H (70-110) mg/dL Assessment and Plan (1) Bacteremia due to Streptococcus Current Visit: Yes Status: Acute Code(s): R78.81 - BACTEREMIA; B95.5 - UNSP STREPTOCOCCUS THE CAUSE OF DISEASES [facility] SNOMED Code(s): 313640228641 (2) Cellulitis of right lower extremity Current Visit: Yes Status: Acute Code(s): L03.115 - CELLULITIS OF RIGHT LOWER LIMB SNOMED Code(s): 27749679674963691 (3) Foot infection Current Visit: Yes Status: Acute Code(s): L08.9 - LOCAL INFECTION OF THE SKIN AND SUBCUTANEOUS TISSUE, UNSP SNOMED Code(s): 090732511 Plan: 1patient presented hospital with sepsis in this patient who did have fever elevated white count source is right foot cellulitis in this patient presented with right foot injury from stepping on a plastic and did have evidence of cellulitis. Likely from gram-positive skin natali 2Streptococcus pyogenes bacteremia source likely right foot cellulitis 3-patient with ceftriaxone allergy describing his swelling/diarrhea clinical or true allergy as the patient mention she has taken Keflex without any problem 4-blood cultures has been repeated document clearance of bacteremia 5-patient did have a CT of the right foot concerning for small fluid collection likely abscess, patient has been evaluated by podiatry not recommending surgical drainage we will keep the patient on cefazolin 6-patient did have urinary symptoms however the pain did have a negative UA Dictation was produced using [employer] dictation software. please excuse any grammatical, word or spelling errors. Time with Patient: Less than 30
[2023-11-20] MEDS: KETOROLAC 15 MG/ML 1 ML VIAL IVP STA (12:57)
[2023-11-20] MEDS: PROCHLORPERAZINE INJ 10 MG/2 ML VIAL IVP STA (12:57)
[2023-11-20] MEDS: diphenhydrAMINE 50 MG/ML 1 ML VIAL IVP STA (12:58)
--- NOTE | 2023-11-20 14:43 | P.PN ---
Subjective Progress Note Date: 11/20/23 Hospital course: Patient is a pleasant 58-year-old female with a past medical history of hypertension, neuropathy, nicotine dependence, heroin/fentanyl use, and me thadone dependence. She presented to the emergency department on 11/15/2023 with a chief complaint of right lower extremity pain/infected wound. Patient reported that on 11/14/2023 she stepped on a piece of plastic resulting in injury to her foot. Patient reports she was able to remove foreign body/piece of plastic that was stuck in her foot but has since had significant pain, swelling, and redness. She reports she came to the emergency department today as the swelling and redness is now extending up into her lower leg. Upon arrival in the emergency department, patient underwent evaluation. Vital signs upon arrival show blood pressure 205/109, heart rate 87, respiratory rate 16, temp 100.7 F, and SpO2 of 97% on room air. X-ray right foot negative for acute fracture or dislocation showing no signs of foreign body reported by radiologist or noted upon personal review of imaging. Labs completed and reviewed. CBC showing leukocytosis with WBC count of 19.7. BMP showing hypoglycemia with glucose of 65. Lactic acid elevated at 2.3. Liver profile showing elevated AST of 42 otherwise normal findings. Patient reports last injecting heroin and fentanyl on 11/09/23 and denies ever injecting into right lower extremity or foot. Patient started on IV antibiotics and admitted under our services with consultation to infectious disease. Blood culture positive for strep A. Repeat blood cultures ordered and pending. Echocardiogram completed showing normal preserved EF of 60 to 65% with no signs of vegetative growth reported. Ultrasound right groin completed showing multiple enlarged inguinal lymph nodes throughout right groin with largest measuring 4.4 x 1.[address] right foot showing generalized subcutaneous soft tissue swelling with no retained radiopaque foreign body identified and a poorly defined 2.1 x 1.0 x 0.7 cm fluid collection along the plantar aspect just proximal to the ball of the foot, likely small area of abscess. Physical exam: Patient seen and fully evaluated at bedside this morning. Patient reports imp rovement of pain to right lower extremity stating only mild at this time. However she continues to report intractable migraine headache. She continues to deny having any dizziness, lightheadedness, changes in vision or hearing, chest pain, palpitations, shortness of breath, or experiencing any focal numbness/tingling/weakness of her extremities. Vital signs reviewed and stable. General: Nontoxic, no distress and appears stated age. Thin and frail build. Derm: Skin warm and dry, normal coloration for ethnicity. Right foot plantar region with small puncture wound slightly above midline of the right foot showing small entry point with surrounding erythema and mild swelling extending into ankle and lower region of right lower leg. No digital cyanosis. Patient has noted mass/enlarged lymph nodes to right inguinal/groin region extending down into right medial thigh surrounded by erythema Head: Atraumatic, normocephalic and symmetric. Eyes: EOMs intact, no lid lag, and anicteric sclera Mouth: no lip lesions, mucus membranes moist Cardiovascular: regular rate and rhythm with normal S1S2, no murmur, positive posterior tibial pulses bilaterally, and cap refill < 2 seconds. Lungs: Respirations even, regular, and unlabored on room air. Lungs CTA bilaterally, no rhonchi, no rales, no wheezing, and no accessory muscle usage. Abdominal: soft, nontender to palpation, no guarding, no appreciable organomegaly Ext: ROM intact. No gross muscle atrophy, right lower extremity edema, no contractures Neuro: Speech clear, face symmetrical and CN II-XII grossly intact with no noted focal neuro deficits Psych: Alert and oriented to person, place, time, and situation. Appropriate and pleasant affect. Assessment and Plan of Care: Cellulitis right lower extremity Strep A bacteremia Sepsis secondary to above Hypoglycemia, likely secondary to decreased oral intake and sepsis due to current infectious process -Blood cultures resulting positive for strep A, repeat blood cultures showing no growth to date -Continue IV antibiotics with cefazolin 2 g every 8 hours -CT right foot showing generalized subcutaneous soft tissue swelling with no retained radiopaque foreign body identified and a poorly defined 2.1 x 1.0 x 0.7 cm fluid collection along the plantar aspect just proximal to the ball of the foot, likely small area of abscess. -Ultrasound right groin completed showing multiple enlarged inguinal lymph nodes throughout right groin with largest measuring 4.4 x 1.3 x 3.2 cm -Infectious disease following, discussed plan of care with Dr. Loyola. -Podiatry consulted, Dr. Reed debrided hyperkeratotic tissue of right foot plantar region and stated no need for I&D at this time. -Continue symptomatic care and pain management with Tylenol as needed for mild pain/fever, Dilaudid 0.5 mg every 3 hours as needed for moderate pain or 1 mg IVP every 3 hours as needed for severe pain. -Continue glycemic protocol with blood glucose checks changed to every 8 hours as patient has had no further episodes of hypoglycemia, will monitor closely for any further signs of hypoglycemia. Resistant hypertension -Secondary to persistently elevated blood pressures with systolic pressures ranging from 180s to 200s, patient's hydrochlorothiazide increased to 50 mg 3 times daily and she was started on hydrochlorothiazide 25 mg daily in addition to clonidine 0.3 mg 3 times daily and losartan 100 mg daily. -Will order renal artery duplex, direct renin, aldosterone, Cortisol, TSH and U rine metanephrine for evaluation of causes potential secondaryof persistent intractable hypertension. -Consult also placed to nephrology for evaluation and assistance with blood pressure control. -Continued close monitoring of vital signs every 4 hours for close monitoring. Intractable migraine headache x 3 days -Order placed for CT head which was negative for acute intracranial process. -Patient again provided with migraine cocktail consisting of Toradol 15 mg IVP x 1 dose, Compazine 10 mg IVP x 1 dose, and Benadryl 50 mg IVP x 1 dose. -Influenza A, influenza B, and COVID PCR's were negative. History of IVDA with heroin/fentanyl Methadone dependent -Continue methadone 130 mg daily Lactic acidosis, resolved Leukocytosis, resolved Data and imaging reviewed: -CT head negative for acute intracranial process. -Influenza A, influenza B, and COVID PCR were negative. -Vital signs reviewed. Blood pressure remains persistently hypertensive but slightly improving with blood pressure 184/88, heart rate 79, respiratory rate 16, temp 99.2 F and SpO2 of 98% on room air. CODE STATUS: Full code DVT prophylaxis: Heparin Anticipated discharge date: Clinical course to determine Anticipated discharge place: Home Patient was seen independently by Nurse Pracitioner. This document was prepared using [employer] dictation software. Please allow for errors in relay assembler, while rare they do occur. .Rosales Trammell NP rendered care for this patient independently, reviewed the findings and plan as documented in the note above. I did not physically speak with or examine the patient on this date. Objective - Vital Signs Vital signs: Vital Signs Temp 98.8 F 11/20/23 06:00 Pulse 58 L 11/20/23 06:00 Resp 17 11/20/23 06:00 BP 178/79 11/20/23 06:00 Pulse Ox 98 11/20/23 06:00 FiO2 Intake & Output 11/19/23 11/20/23 11/20/23 18:59 06:59 18:59 Intake Total 486 Balance 486 Intake: Oral 486 Other: Voiding Method Toilet Toilet # Voids 4 2 - Labs CBC & Chem 7: 11/21/23 07:44 11/21/23 07:44 Labs: Abnormal Lab Results - Last 24 Hours (Table) 11/19/23 11/20/23 Range/Units 10:08 05:20 POC Glucose (mg/dL) 138 H 131 H (70-110) mg/dL
--- NOTE | 2023-11-20 15:41 | CT ---
EXAMINATION TYPE: CT brain wo con DATE OF EXAM: 11/20/2023 COMPARISON: None INDICATION: persistant daily headache x 3 days DLP: 1036.0 mGycm, Automated exposure control for dose reduction was used. CONTRAST: None CT of the brain is performed utilizing 3 mm thick sections through the posterior fossa and 3 mm thick sections through the remaining calvarium. Study is performed within 24 hours of arrival to the hosp [facility]. No abnormal hyperdensity is present to suggest an acute intracranial hemorrhage. No mass lesion is evident. No acute infarcts are evident. Ventricles and sulci are appropriate for the patient age. Paranasal sinuses and mastoid air cells within the [id number] are clear. IMPRESSION: 1. No acute intracranial process. Follow-up MRI can be performed as clinically indicated.
[2023-11-20 17:18] LABS: Glucose,Whole Blood 125 mg/dL (70-110)
[2023-11-20 20:47] LABS: Glucose,Whole Blood 98 mg/dL (70-110)
[2023-11-20] MEDS: hydrALAZINE HCL 25 MG TAB PO SCH (21:42)
[2023-11-20] MEDS: hydroCHLOROthiazide 25 MG TAB PO SCH (21:43)
[2023-11-21 02:12] LABS: Glucose,Whole Blood 83 mg/dL (70-110)
[2023-11-21 06:17] LABS: Glucose,Whole Blood 75 mg/dL (70-110)
--- NOTE | 2023-11-21 10:12 | US ---
EXAMINATION TYPE: US renal artery duplex complet DATE OF EXAM: 11/21/2023 COMPARISON: NONE CLINICAL INDICATION: Female, 73 years old with history of I10 hypertension; MEASUREMENTS: RENAL SIZE: Right Kidney: 11.6 x 5.8 x 4.6 cm Left Kidney: 11.9 x 4.8 x 5.7 cm Right Kidney: wnl Left Kidney: wnl Abd Aorta: wnl RESISTANCE INDEX Right: 0.79 Left: 0.83 RA/AO RATIO (< 3.5 ) Right: 0.57 Left: 0.97 RENAL ARTERY VELOCITY ( < 180 cm/s) Right: 74 Left: 126 Foundation Engineer Notes: IMPRESSION: No evidence for significant renal artery stenosis.
--- NOTE | 2023-11-21 10:28 | P.PN ---
Subjective Progress Note Date: 11/21/23 Hospital course: Patient is a pleasant 58-year-old female with a past medical history of hypertension, neuropathy, nicotine dependence, heroin/fentanyl use, and me thadone dependence. She presented to the emergency department on 11/15/2023 with a chief complaint of right lower extremity pain/infected wound. Patient reported that on 11/14/2023 she stepped on a piece of plastic resulting in injury to her foot. Patient reports she was able to remove foreign body/piece of plastic that was stuck in her foot but has since had significant pain, swelling, and redness. She reports she came to the emergency department today as the swelling and redness is now extending up into her lower leg. Upon arrival in the emergency department, patient underwent evaluation. Vital signs upon arrival show blood pressure 205/109, heart rate 87, respiratory rate 16, temp 100.7 F, and SpO2 of 97% on room air. X-ray right foot negative for acute fracture or dislocation showing no signs of foreign body reported by radiologist or noted upon personal review of imaging. Labs completed and reviewed. CBC showing leukocytosis with WBC count of 19.7. BMP showing hypoglycemia with glucose of 65. Lactic acid elevated at 2.3. Liver profile showing elevated AST of 42 otherwise normal findings. Patient reports last injecting heroin and fentanyl on 11/09/23 and denies ever injecting into right lower extremity or foot. Patient started on IV antibiotics and admitted under our services with consultation to infectious disease. Blood culture positive for strep A. Repeat blood cultures ordered and pending. Echocardiogram completed showing normal preserved EF of 60 to 65% with no signs of vegetative growth reported. Ultrasound right groin completed showing multiple enlarged inguinal lymph nodes throughout right groin with largest measuring 4.4 x 1.[address] right foot showing generalized subcutaneous soft tissue swelling with no retained radiopaque foreign body identified and a poorly defined 2.1 x 1.0 x 0.7 cm fluid collection along the plantar aspect just proximal to the ball of the foot, likely small area of abscess. Physical exam: Patient seen and fully evaluated at bedside this morning. Reports only minimal to mild pain of right lower extremity. She states she continues to have an intractable headache. She reports migraine cocktail improves only momentarily with administration of migraine cocktail and denies anything else helping with pain management. Continues to deny having any dizziness, lightheadedness, changes in vision or hearing, neck pain or any other complaints. Vital signs reviewed and stable. General: Nontoxic, no distress and appears stated age. Thin and frail build. Derm: Skin warm and dry, normal coloration for ethnicity. Right foot plantar region with small puncture wound slightly above midline of the right foot showing small entry point with surrounding erythema and mild swelling extending into ankle and lower region of right lower leg. No digital cyanosis. Patient h as noted mass/enlarged lymph nodes to right inguinal/groin region extending down into right medial thigh surrounded by erythema Head: Atraumatic, normocephalic and symmetric. Eyes: EOMs intact, no lid lag, and anicteric sclera Mouth: no lip lesions, mucus membranes moist Cardiovascular: regular rate and rhythm with normal S1S2, no murmur, positive posterior tibial pulses bilaterally, and cap refill < 2 seconds. Lungs: Respirations even, regular, and unlabored on room air. Lungs CTA bilatera lly, no rhonchi, no rales, no wheezing, and no accessory muscle usage. Abdominal: soft, nontender to palpation, no guarding, no appreciable organomegaly Ext: ROM intact. No gross muscle atrophy, right lower extremity edema, no contractures Neuro: Speech clear, face symmetrical and CN II-XII grossly intact with no noted focal neuro deficits Psych: Alert and oriented to person, place, time, and situation. Appropriate and pleasant affect. Assessment and Plan of Care: Cellulitis right lower extremity Strep A bacteremia Sepsis secondary to above Hypoglycemia, likely secondary to decreased oral intake and sepsis due to current infectious process -Blood cultures resulting positive for strep A, repeat blood cultures showing no growth to date -Continue IV antibiotics with cefazolin 2 g every 8 hours -CT right foot showing generalized subcutaneous soft tissue swelling with no retained radiopaque foreign body identified and a poorly defined 2.1 x 1.0 x 0.7 cm fluid collection along the plantar aspect just proximal to the ball of the foot, likely small area of abscess. -Ultrasound right groin completed showing multiple enlarged inguinal lymph nodes throughout right groin with largest measuring 4.4 x 1.3 x 3.2 cm -Infectious disease following, discussed plan of care with Dr. Loyola. -Podiatry consulted, Dr. Reed debrided hyperkeratotic tissue of right foot plantar region and stated no need for I&D at this time. -Continue symptomatic care and pain management with Tylenol as needed for mild pain/fever, Dilaudid 0.5 mg every 3 hours as needed for moderate pain or 1 mg IVP every 3 hours as needed for severe pain. -Continue glycemic protocol with blood glucose checks changed to every 8 hours as patient has had no further episodes of hypoglycemia, will monitor closely for any further signs of hypoglycemia. Resistant hypertension -Secondary to persistently elevated blood pressures with systolic pressures ranging from 180s to 200s, patient's hydrochlorothiazide increased to 50 mg 3 times daily and she was started on hydrochlorothiazide 25 mg daily in addition to clonidine 0.3 mg 3 times daily and losartan 100 mg daily. -Order placed for renal artery duplex, direct renin, aldosterone, Cortisol, TSH and Urine metanephrine for evaluation of causes potential secondaryof pe rsistent intractable hypertension. -Renal artery duplex showing no evidence for significant renal artery stenosis.. -Cortisol elevated at 24.7. TSH normal findings at 1.580. Direct renin, aldosterone, and urine metanephrine pending. -Consult also placed to nephrology for evaluation and assistance with blood pressure control. -Continued close monitoring of vital signs every 4 hours for close monitoring. Intractable migraine headache -Order placed for CT head which was negative for acute intracranial process. -Patient again provided with migraine cocktail consisting of Toradol 15 mg IVP x 1 dose, Compazine 10 mg IVP x 1 dose, and Benadryl 50 mg IVP x 1 dose. -Influenza A, influenza B, and COVID PCR's were negative. History of IVDA with heroin/fentanyl Methadone dependent -Continue methadone 130 mg daily Lactic acidosis, resolved Leukocytosis, resolved Data and imaging reviewed: -CT head negative for acute intracranial process. -Renal artery duplex showing no evidence for significant renal artery stenosis. -Vital signs reviewed. Blood pressure remains persistently hypertensive but slightly improving with blood pressure 184/88, heart rate 79, respiratory rate 16, temp 99.2 F and SpO2 of 98% on room air. -Labs reviewed. CBC showing microcytic anemia with hemoglobin of 10.9. BMP showing hypokalemia with potassium of 3.2. Glucose 80. Liver profile normal findings. Albumin low at 3.4. TSH normal findings at 1.580. Cortisol elevated at 24.7. CODE STATUS: Full code DVT prophylaxis: Heparin Anticipated discharge date: Clinical course to determine Anticipated discharge place: Home Patient was seen independently by Nurse Pracitioner. This document was prepared using [employer] dictation software. Please allow for errors in linux administrator, while rare they do occur. Rosales Trammell INDUSTRIAL HYGIENE ENGINEER rendered care for this patient independently, reviewed the findings and plan as documented in the note above. I did not physically speak with or examine the patient on this date. Objective - Vital Signs Vital signs: Vital Signs Temp 98.3 F 11/21/23 06:15 Pulse 76 11/21/23 06:15 Resp 16 11/21/23 06:15 BP 205/98 11/21/23 06:15 Pulse Ox 94 L 11/21/23 06:15 FiO2 Intake & Output 11/20/23 11/21/23 11/21/23 18:59 06:59 18:59 Intake Total 480 Balance 480 Intake: Oral 480 Other: Voiding Method Toilet Toilet # Voids 3 1 - Labs CBC & Chem 7: 11/21/23 07:44 11/21/23 07:44 Labs: Abnormal Lab Results - Last 24 Hours (Table) 11/20/23 Range/Units 17:16 POC Glucose (mg/dL) 125 H (70-110) mg/dL Microbiology - Last 24 Hours (Table) 11/19/23 03:45 Blood Culture - Preliminary Blood 11/18/23 10:18 Blood Culture - Preliminary Blood
[2023-11-21] MEDS: KETOROLAC 15 MG/ML 1 ML VIAL IVP STA (10:41)
[2023-11-21] MEDS: PROCHLORPERAZINE INJ 10 MG/2 ML VIAL IVP STA (10:41)
[2023-11-21] MEDS: diphenhydrAMINE 50 MG/ML 1 ML VIAL IVP STA (10:42)
[2023-11-21] MEDS: carvediloL 12.5 MG TAB PO SCH (10:51)
[2023-11-21 11:24] LABS: HCT 35.2 % (37.2-46.3); HGB 10.9 g/dL (12.0-15.0); MCH 24.7 pg (27.0-32.0); MCV 79.8 FL (80.0-97.0); Mean Platelet Volume 11.4 FL (9.5-12.2); NRBC Per 100 WBC 0 X 10*3/uL (0.00-0.01); Platelet Count 381 X 10*3/uL (140-440); RBC 4.41 X 10*6/uL (4.10-5.20); RDW 16.3 % (11.5-14.5); WBC 8.74 X 10*3/uL (4.50-10.00)
[2023-11-21 11:26] LABS: ALT 8 U/L (8-44); AST 18 U/L (13-35); Albumin 3.4 g/dL (3.8-4.9); Albumin/Globulin Ratio 1.06 Ratio (1.60-3.17); Alkaline Phosphatase 99 U/L (41-126); BUN/Creat Ratio 7.25 Ratio (12.00-20.00); Blood Urea Nitrogen 5.8 mg/dL (9.0-27.0); Calcium 8.8 mg/dL (8.7-10.3); Carbon Dioxide 27.7 mmol/L (21.6-31.8); Chloride 103 mmol/L (96-109); Globulin 3.2 g/dL (1.6-3.3); Glucose 80 mg/dL (70-110); Potassium 3.2 mmol/L (3.5-5.5); Sodium 143 mmol/L (135-145); Total Bilirubin 0.2 mg/dL (0.3-1.2); Total Protein 6.6 g/dL (6.2-8.2)
[2023-11-21 11:57] LABS: Glucose,Whole Blood 78 mg/dL (70-110)
--- NOTE | 2023-11-21 11:57 | P.NPCON ---
History of Present Illness - Reason for Consult accelerated hypertension - History of Present Illness patient is a 58-year-old female with history of hypertension for about 25 years. Patient is admitted to the hospital with complaints of wound in her right foot with increased swelling.blood culture grew strep a. Patient is currently maintained on antibiotics. Blood pressure has been uncontrolled For about 1-2 weeks per patient. patient denies use of nonsteroidal anti-inflammatory agents at home except occasionally. Patient has received Toradol in the hospital for severe headache/migraine. potassium is noted to be low at 3.2. Patient denies history of palpitations and flushing or sweaty palms. Currently maintained on clonidine, hydralazine and Cozaar at 100 mg daily. systolic blood pressure remains elevated ranging from 170-200 mmHg Review of Systems as per HPI Past Medical History Past Medical History: Hypertension Additional Past Medical History / Comment(s): neuropathy. heroin/fentanyl use last 11/09/23 History of Any Multi-Drug Resistant Organisms: None Reported Past Surgical History: Bladder Surgery Additional Past Surgical History / Comment(s): ulcer Past Anesthesia/Blood Transfusion Reactions: No Reported Reaction Past Psychological History: No Psychological Hx Reported Smoking Status: Current every day smoker Past Drug Use History: Heroin Additional Drug Use History / Comment(s): fetanyl Medications and Allergies Home Medications Medication Instructions Recorded Confirmed Type Acetaminophen [Tylenol] 650 mg PO Q4H 11/16/23 11/16/23 History Calcium/Zinc/Mag/D3 1 tab PO TID PRN 11/16/23 11/16/23 History Losartan [Cozaar] 50 mg PO DAILY 11/16/23 11/16/23 History Methadone HCl [Methadone Intensol] 130 mg PO DAILY 11/16/23 11/16/23 History Multivitamins, Thera [Multivitamin 1 tab PO DAILY 11/16/23 11/16/23 History (formulary)] Mylanta 30 ml PO Q4H PRN 11/16/23 11/16/23 History Sennosides-Docusate Sodium 1 tab PO BID 11/16/23 11/16/23 History [Senokot-S] Sertraline [Zoloft] 50 mg PO DAILY 11/16/23 11/16/23 History Thiamine [Vitamin B-1] 100 mg PO DAILY 11/16/23 11/16/23 History cloNIDine HCL 0.3 mg PO TID 11/16/23 11/16/23 History traZODone HCL [Desyrel] 50 - 150 mg PO HS PRN 11/16/23 11/16/23 History Allergies Allergy/AdvReac Type Severity Reaction Status Date / Time amlodipine Allergy Rash/Hives Verified 11/16/23 08:59 ceftriaxone [From Rocephin] Allergy Swelling Verified 11/16/23 08:59 Physical Exam Vitals: Vital Signs Temp Pulse Resp BP BP Pulse Ox 11/21/23 10:00 98.8 F 63 15 146/73 97 11/21/23 06:15 98.3 F 76 16 205/98 94 L 11/21/23 02:08 99.9 F H 76 16 174/78 96 11/20/23 22:08 99.4 F 70 15 177/87 97 11/20/23 18:00 99.3 F 68 16 191/81 97 11/20/23 14:37 98.9 F 75 17 195/90 97 Intake and Output 11/20/23 11/21/23 11/21/23 22:59 06:59 14:59 Intake Total 240 118 Balance 240 118 Intake: Oral 240 118 Other: Voiding Method Toilet # Voids 3 1 patient is awake, comfortable, no acute distress. Examination of the heart S1 and S2 Examination of the lungs bilateral breath sounds are heard Abdomen is soft nontender Examination of lower extremities shows no significant edema CRISIS SPECIALIST exam grossly intact Results - Lab Results Most recent lab results Calcium 8.8 mg/dL (8.7-10.3) 11/21/23 07:44 Magnesium 2.0 mg/dL (1.5-2.4) 11/21/23 07:44 11/21/23 07:44 11/21/23 07:44 Assessment and Plan Assessment: 1. Uncontrolled hypertension, rule out secondary causes in view of hypokalemia. Add Coreg. Check MRA of renal arteries to rule out renal artery stenosis and check serum aldosterone and renin levels. Recommend to avoid use of NSAIDs. 2. Cellulitis right lower extremity maintained on antibiotics 3. Strep A bacteremia 4. History of off IVDA with heroine/fentanyl, methadone dependent. No recent drug screen available 5. Intractable headache with negative CT of the head, possibly related to uncontrolled hypertension Plan: add Coreg Check renin aldosterone levels. Check MRA of the renal arteries rule out renal artery stenosis. Replace potassium Add Aldactone once serum aldosterone and renin levels have been drawn. Continue with current dose of clonidine hydralazine and Cozaar. Avoid use of NSAIDs. Consider drug screen, however patient has already been in the hospital for 6 days now. This may not be accurate now. Thank you for the consultation. We will continue to follow the patient with you during her hospitalization.
[2023-11-21] MEDS: POTASSIUM CHLORIDE ER 20 MEQ TAB.ER PO STA (12:32)
[2023-11-21 13:18] VITALS: BMI 21.6
--- NOTE | 2023-11-21 16:17 | CT ---
EXAMINATION TYPE: CT angio renal artery CT DLP: 533 mGycm, Automated exposure control for dose reduction was used. DATE OF EXAM: 11/21/2023 4:10 PM COMPARISON: Ultrasound 11/21/2023.. CLINICAL INDICATION:Female, 58 years old with history of r/o renal artery stenosis; PHH, renal artery stenosis TECHNIQUE: Multiple thin slice sub-millimeter images were obtained after administration of contrast. 3-D reconstructed images and maximum intensity projection images were obtained. CT angio renal arter y CT Contrast: Contrast used:100 mL of Isovue 370 with IV Contrast, Oral contrast used: None FINDINGS: CTA Abdomen and pelvis: The abdominal aorta does not demonstrate aneurysmal dilatation. The origins of the superior mesenteric artery, renal arteries, inferior mesenteric artery, and celiac axis are pa tent. The iliac vessels are normal in morphology Renal arteries are patent without evidence for significant stenosis. LOWER CHEST: No evidence of focal consolidation, pneumothorax or pleural effusion. LIVER: Unremarkable GALLBLADDER AND BILE DUCTS: Unremarkable. PANCREAS: Unremarkable. SPLEEN: Unremarkable. ADRENAL GLANDS: Unremarkable. KIDNEYS AND URETERS: No evidence of hydronephrosis or renal calculus. The ureters are unremarkable. PELVIS BLADDER: Unremarkable REPRODUCTIVE: Unremarkable. ABDOMEN & PELVIS STOMACH AND BOWEL: No evidence of bowel obstruction. PERITONEUM: No evidence of pneumoperitoneum or free fluid. VASCULATURE: No evidence of aortic aneurysm. MUSCULOSKELETAL: No acute osseous abnormalities LYMPH NODES: No gross evidence for lymphadenopathy. SOFT TISSUE/ABDOMINAL WALL: Unremarkable IMPRESSION No evidence of renal artery stenosis similar to findings on same day renal artery duplex 11/21/2023.
[2023-11-21 17:17] LABS: Glucose,Whole Blood 115 mg/dL (70-110)
[2023-11-21 20:18] LABS: Glucose,Whole Blood 90 mg/dL (70-110)
[2023-11-22 02:27] LABS: Glucose,Whole Blood 95 mg/dL (70-110)
[2023-11-22 05:59] LABS: Glucose,Whole Blood 95 mg/dL (70-110)
[2023-11-22] MEDS ORDERED: SPIRONOLACTONE 25 MG TAB PO SCH (09:45)
[2023-11-22] MEDS: KETOROLAC 15 MG/ML 1 ML VIAL IVP STA (11:12)
--- NOTE | 2023-11-22 12:04 | P.PN ---
Subjective patient is seen for follow-up for hypertensive urgency and uncontrolled hypertension. Blood pressure is somewhat better controlled. Headache is better No evidence of renal artery stenosis on renal angiogram. Aldosterone and renin levels are pending. labs are pending from today. Objective - Vital Signs Vital signs: Vital Signs Temp 99.4 F 11/22/23 07:00 Pulse 61 11/22/23 11:00 Resp 16 11/22/23 11:00 BP 185/89 11/22/23 11:00 Pulse Ox 96 11/22/23 11:00 FiO2 Intake & Output 11/21/23 11/22/23 11/22/23 18:59 06:59 18:59 Intake Total 354 Balance 354 Weight 70.307 kg Intake: Oral 354 Other: Voiding Method Toilet Toilet # Voids 2 2 1 # Bowel Movements 1 - Exam patient is awake, comfortable, no acute distress. Examination of the heart S1 and S2 Examination of the lungs bilateral breath sounds are heard Abdomen is soft nontender Examination of lower extremities shows no significant edema SOFTWARE MAINTENANCE ENGINEER exam grossly intact - Labs CBC & Chem 7: 11/21/23 07:44 11/21/23 07:44 Labs: Abnormal Lab Results - Last 24 Hours (Table) 11/21/23 Range/Units 17:15 POC Glucose (mg/dL) 115 H (70-110) mg/dL Microbiology - Last 24 Hours (Table) 11/19/23 03:45 Blood Culture - Preliminary Blood 11/18/23 10:18 Blood Culture - Preliminary Blood Assessment and Plan Assessment: 1. Uncontrolled hypertension, rule out secondary causes in view of hypokalemia. renal angiogram is negative. Aldosterone and renin levels are pending. Add Coreg. Continue to avoid use of NSAIDs. 2. Cellulitis right lower extremity maintained on antibiotics 3. Strep A bacteremia 4. History of off IVDA with heroine/fentanyl, methadone dependent. No recent drug screen available 5. Intractable headache with negative CT of the head, possibly related to uncontrolled hypertension Plan: add Aldactone avoid Toradol Add Norvasc.
[2023-11-22 12:20] LABS: Glucose,Whole Blood 150 mg/dL (70-110)
[2023-11-22] MEDS: SPIRONOLACTONE 25 MG TAB PO SCH (15:51)
--- NOTE | 2023-11-22 16:34 | P.PN ---
Subjective Progress Note Date: 11/22/23 Hospital course: Patient is a pleasant 58-year-old female with a past medical history of hypertension, neuropathy, nicotine dependence, heroin/fentanyl use, and me thadone dependence. She presented to the emergency department on 11/15/2023 with a chief complaint of right lower extremity pain/infected wound. Patient reported that on 11/14/2023 she stepped on a piece of plastic resulting in injury to her foot. Patient reports she was able to remove foreign body/piece of plastic that was stuck in her foot but has since had significant pain, swelling, and redness. She reports she came to the emergency department today as the swelling and redness is now extending up into her lower leg. Upon arrival in the emergency department, patient underwent evaluation. Vital signs upon arrival show blood pressure 205/109, heart rate 87, respiratory rate 16, temp 100.7 F, and SpO2 of 97% on room air. X-ray right foot negative for acute fracture or dislocation showing no signs of foreign body reported by radiologist or noted upon personal review of imaging. Labs completed and reviewed. CBC showing leukocytosis with WBC count of 19.7. BMP showing hypoglycemia with glucose of 65. Lactic acid elevated at 2.3. Liver profile showing elevated AST of 42 otherwise normal findings. Patient reports last injecting heroin and fentanyl on 11/09/23 and denies ever injecting into right lower extremity or foot. Patient started on IV antibiotics and admitted under our services with consultation to infectious disease. Blood culture positive for strep A. Repeat blood cultures ordered and pending. Echocardiogram completed showing normal preserved EF of 60 to 65% with no signs of vegetative growth reported. Ultrasound right groin completed showing multiple enlarged inguinal lymph nodes throughout right groin with largest measuring 4.4 x 1.[address] right foot showing generalized subcutaneous soft tissue swelling with no retained radiopaque foreign body identified and a poorly defined 2.1 x 1.0 x 0.7 cm fluid collection along the plantar aspect just proximal to the ball of the foot, likely small area of abscess. Podiatry consulted, Dr. Reed debrided hyperkeratotic tissue of right foot plantar region and stated no need for I&D at this time. Physical exam: Patient seen and fully evaluated at bedside this morning. Patient continues to report only minimal pain of right lower extremity. She states she continues to have an intractable headache. Blood pressures somewhat improved yesterday throughout the day but patient is again hypertensive this morning at 188/87 with low-grade temp of 99.4. Vital signs reviewed and stable. General: Nontoxic, no distress and appears stated age. Thin and frail build. Derm: Skin warm and dry, normal coloration for ethnicity. Right foot plantar region dressing clean, dry, and intact. Improvement of lymphadenopathy/swelling of right medial groin region. Head: Atraumatic, normocephalic and symmetric. Eyes: EOMs intact, no lid lag, and anicteric sclera Mouth: no lip lesions, mucus membranes moist Cardiovascular: regular rate and rhythm with normal S1S2, no murmur, positive posterior tibial pulses bilaterally, and cap refill < 2 seconds. Lungs: Respirations even, regular, and unlabored on room air. Lungs CTA bilaterally, no rhonchi, no rales, no wheezing, and no accessory muscle usage. Abdominal: soft, nontender to palpation, no guarding, no appreciable organomegaly Ext: ROM intact. No gross muscle atrophy, right lower extremity edema, no cont ractures Neuro: Speech clear, face symmetrical and CN II-XII grossly intact with no noted focal neuro deficits Psych: Alert and oriented to person, place, time, and situation. Appropriate and pleasant affect. Assessment and Plan of Care: Cellulitis right lower extremity Strep A bacteremia Sepsis secondary to above Hypoglycemia, likely secondary to decreased oral intake and sepsis due to current infectious process -Blood cultures resulting positive for strep A, repeat blood cultures showing no growth to date -Continue IV antibiotics with cefazolin 2 g every 8 hours -Infectious disease following, discussed plan of care with Dr. Loyola stating at this time continue IV antibiotics with plans for discharge home on oral antibiotics. -Podiatry evaluated Dr. Reed debrided hyperkeratotic tissue of right foot plantar region and stated no need for I&D at this time. -Continue symptomatic care and pain management with Tylenol as needed for mild pain/fever, Dilaudid 0.5 mg every 3 hours as needed for moderate pain or 1 mg IVP every 3 hours as needed for severe pain. -Continue glycemic protocol with blood glucose checks every 8 hours and monitor closely for any further signs of hypoglycemia. Resistant hypertension -Secondary to persistently elevated blood pressures with systolic pressures ranging from 180s to 200s, patient's hydrochlorothiazide increased to 50 mg 3 times daily and she was started on hydrochlorothiazide 25 mg daily in addition to clonidine 0.3 mg 3 times daily and losartan 100 mg daily. -Direct renin, aldosterone, and Urine metanephrine results pending. -Renal artery duplex showing no evidence for significant renal artery stenosis.. -Cortisol elevated at 24.7. TSH normal findings at 1.580. -Nephrology following for further evaluation of secondary causes of hypertension and assistance with obtaining optimal blood pressure control. Starting patient on Aldactone 25 mg daily and increasing hydrochlorothiazide to 50 mg daily. -Continued close monitoring of vital signs every 4 hours and as needed. Intractable migraine headache -CT head negative for acute intracranial process. -Intractable migraine headache possibly secondary to persistent hypertension. Continue symptomatic care and pain management as well as optimal blood pressure control. History of IVDA with heroin/fentanyl and Methadone dependent. Continue methadone 130 mg daily. Lactic acidosis, resolved Leukocytosis, resolved Data and imaging reviewed: -Renal arteriogram showing no evidence of renal artery stenosis -Vital signs reviewed. Blood pressure 188/87, heart rate 67, respiratory rate 16, temp 99.4 F, and SpO2 of 98% on room air. CODE STATUS: Full code DVT prophylaxis: Heparin Anticipated discharge date: Clinical course to determine Anticipated discharge place: Home Patient was seen independently by Nurse Pracitioner. This document was prepared using [employer] dictation software. Please allow for errors in radio news writer, while rare they do occur. Rosales Trammell NP rendered care for this patient independently, reviewed the findings and plan as documented in the note above. I did not physically speak with or examine the patient on this date. Objective - Vital Signs Vital signs: Vital Signs Temp 98.3 F 11/22/23 15:00 Pulse 49 L 11/22/23 15:00 Resp 16 11/22/23 15:00 BP 134/75 11/22/23 15:00 Pulse Ox 97 11/22/23 15:00 FiO2 Intake & Output 11/21/23 11/22/23 11/22/23 18:59 06:59 18:59 Intake Total 354 720 Balance 354 720 Weight 70.307 kg Intake: Oral 354 720 Other: Voiding Method Toilet Toilet # Voids 2 2 3 # Bowel Movements 1 - Labs CBC & Chem 7: 11/21/23 07:44 11/21/23 07:44 Labs: Abnormal Lab Results - Last 24 Hours (Table) 11/21/23 11/22/23 Range/Units 17:15 12:18 POC Glucose (mg/dL) 115 H 150 H (70-110) mg/dL Microbiology - Last 24 Hours (Table) 11/19/23 03:45 Blood Culture - Preliminary Blood 11/18/23 10:18 Blood Culture - Preliminary Blood
[2023-11-22 17:31] LABS: Glucose,Whole Blood 127 mg/dL (70-110)
[2023-11-22 20:28] LABS: Glucose,Whole Blood 107 mg/dL (70-110)
[2023-11-22] MEDS: HYDROmorphone 0.5 MG/0.5 ML SYRINGE IVP PRN (22:15)
[2023-11-23 02:17] LABS: Glucose,Whole Blood 105 mg/dL (70-110)
[2023-11-23 06:19] LABS: Glucose,Whole Blood 109 mg/dL (70-110)
[2023-11-23 08:47] LABS: HGB 10.3 g/dL (12.0-15.0); MCH 24.9 pg (27.0-32.0); MCHC 30.3 g/dL (32.0-37.0); MCV 82.3 FL (80.0-97.0); Mean Platelet Volume 11.8 FL (9.5-12.2); NRBC Per 100 WBC 0 X 10*3/uL (0.00-0.01); Platelet Count 354 X 10*3/uL (140-440); RBC 4.13 X 10*6/uL (4.10-5.20); RDW 16.3 % (11.5-14.5); WBC 6.22 X 10*3/uL (4.50-10.00)
[2023-11-23 08:58] LABS: Magnesium 1.9 mg/dL (1.5-2.4)
[2023-11-23 09:21] LABS: ALT 5 U/L (8-44); AST 17 U/L (13-35); Albumin 3.3 g/dL (3.8-4.9); Alkaline Phosphatase 69 U/L (41-126); BUN/Creat Ratio 17.86 Ratio (12.00-20.00); Blood Urea Nitrogen 12.5 mg/dL (9.0-27.0); Carbon Dioxide 28.8 mmol/L (21.6-31.8); Chloride 102 mmol/L (96-109); Glucose 73 mg/dL (70-110); Potassium 3.7 mmol/L (3.5-5.5); Sodium 141 mmol/L (135-145); Total Bilirubin <0.2 mg/dL (0.3-1.2); Total Protein 6.3 g/dL (6.2-8.2)
--- NOTE | 2023-11-23 11:31 | P.PN ---
Subjective Patient is seen in follow-up for hypertension. Blood pressure better controlled. Oral intake is good. No vomiting or diarrhea. Vital signs are stable. General: No acute distress. HEENT: Head exam is unremarkable. LUNGS: No audible rhonchi or wheezes. HEART: Rate and Rhythm are regular. ABDOMEN: Nontender. EXTREMITITES: No edema. Objective - Vital Signs Vital signs: Vital Signs Temp 98.7 F 11/23/23 07:00 Pulse 55 L 11/23/23 07:00 Resp 16 11/23/23 07:00 BP 157/78 11/23/23 07:00 Pulse Ox 97 11/23/23 07:00 FiO2 Intake & Output 11/22/23 11/23/23 11/23/23 18:59 06:59 18:59 Intake Total 960 360 Balance 960 360 Intake: Oral 960 360 Other: Voiding Method Toilet Toilet # Voids 1 1 - Labs CBC & Chem 7: 11/23/23 05:47 11/23/23 05:47 Labs: Abnormal Lab Results - Last 24 Hours (Table) 11/21/23 11/22/23 11/22/23 Range/Units 07:44 12:18 17:30 Hgb (12.0-15.0) g/dL Hct (37.2-46.3) % MCH (27.0-32.0) pg MCHC (32.0-37.0) g/dL RDW (11.5-14.5) % POC Glucose (mg/dL) 150 H 127 H (70-110) mg/dL Total Bilirubin (0.3-1.2) mg/dL ALT (8-44) U/L Albumin (3.8-4.9) g/dL Albumin/Globulin Ratio (1.60-3.17) Ratio Renin Direct <2.1 L (3.1 - 57.1) pg/mL 11/23/23 11/23/23 Range/Units 05:47 05:47 Hgb 10.3 L (12.0-15.0) g/dL Hct 34.0 L (37.2-46.3) % MCH 24.9 L (27.0-32.0) pg MCHC 30.3 L (32.0-37.0) g/dL RDW 16.3 H (11.5-14.5) % POC Glucose (mg/dL) (70-110) mg/dL Total Bilirubin <0.2 L (0.3-1.2) mg/dL ALT 5 L (8-44) U/L Albumin 3.3 L (3.8-4.9) g/dL Albumin/Globulin Ratio 1.10 L (1.60-3.17) Ratio Renin Direct (3.1 - 57.1) pg/mL Microbiology - Last 24 Hours (Table) 11/19/23 03:45 Blood Culture - Preliminary Blood 11/18/23 10:18 Blood Culture - Preliminary Blood Assessment and Plan Plan: Assessment: 1. Benign hypertension. Now better controlled. Rule out secondary causes. No evidence of renal artery stenosis on renal angiogram. Aldosterone level less than 3. Cortisol level elevated at 24.7. Plasma metanephrines pending. 2. Hypokalemia from poor intake. No evidence of hyperaldosteronism. Better. 3. Strep bacteremia and lower extremity cellulitis on antibiotics. 4. History of IV drug abuse. Plan: Maintain current antihypertensives. Follow-up plasma metanephrines. Check salivary cortisol level tonight. Check 24-hour urine cortisol level. Patient to see endocrinology upon discharge.
[2023-11-23] MEDS: KETOROLAC 15 MG/ML 1 ML VIAL IVP STA (11:58)
[2023-11-23] MEDS: diphenhydrAMINE 50 MG/ML 1 ML VIAL IVP STA (11:58)
[2023-11-23] MEDS: PROCHLORPERAZINE INJ 10 MG/2 ML VIAL IVP STA (11:58)
[2023-11-23 12:10] LABS: Glucose,Whole Blood 114 mg/dL (70-110)
[2023-11-23] MEDS ORDERED: LORazepam 1 MG/0.5 ML VIAL IV PRN (13:59)
--- NOTE | 2023-11-23 16:31 | P.PN ---
Subjective Progress Note Date: 11/23/23 No new complaints today. Ongoing headache, improved. Cortisol level was high. Gen: In NAD, non-toxic HEENT: normocephalic, atraumatic, hearing acuity is intant, mucous membranes moist CVS: perfusing all extremities well, no pitting edema, Respiratory: symmetric chest expansion, no accessory muscle use, GI: soft, NTTP, ND, : no suprapubic tenderness, no CVA tenderness MSK/Derm: no rashes, cyanosis Neuro: CN II-XII intact, no motor weakness, Psych: cooperative, euthymic mood, judgment and insight is intact Hospital course: Patient is a pleasant 58-year-old female with a past medical history of hypertension, neuropathy, nicotine dependence, heroin/fentanyl use, and methadone dependence. She presented to the emergency department on 11/15/2023 with a chief complaint of right lower extremity pain/infected wound. Patient reported that on 11/14/2023 she stepped on a piece of plastic resulting in injury to her foot. Patient reports she was able to remove foreign body/piece of plastic that was stuck in her foot but has since had significant pain, swelling, and redness. She reports she came to the emergency department today as the swelling and redness is now extending up into her lower leg. Upon arrival in the emergency department, patient underwent evaluation. Vital signs upon arrival show blood pressure 205/109, heart rate 87, respiratory rate 16, temp 100.7 F, and SpO2 of 97% on room air. X-ray right foot negative for acute fracture or dislocation showing no signs of foreign body reported by radiologist or noted upon personal review of imaging. Labs completed and reviewed. CBC showing leukocytosis with WBC count of 19.7. BMP showing hypoglycemia with glucose of 65. Lactic acid elevated at 2.3. Liver profile showing elevated AST of 42 otherwise normal findings. Patient reports last injecting heroin and fentanyl on 11/09/23 and denies ever injecting into right lower extremity or foot. Patient started on IV antibiotics and admitted under our services with consultation to infectious disease. Blood culture positive for strep A. Repeat blood cultures ordered and pending. Echocardiogram completed showing normal preserved EF of 60 to 65% with no signs of vegetative growth reported. Ultrasound right groin completed showing multiple enlarged inguinal lymph nodes throughout right groin with largest measuring 4.4 x 1.[address] right foot showing generalized subcutaneous soft tissue swelling with no retained radiopaque foreign body identified and a poorly defined 2.1 x 1.0 x 0.7 cm fluid collection along the plantar aspect just proximal to the ball of the foot, likely small area of abscess. Podiatry consulted, Dr. Reed debrided hyperkeratotic tissue of right foot plantar region and stated no need for I&D at this time. Assessment and Plan of Care: Cellulitis right lower extremity Strep A bacteremia Sepsis secondary to above Hypoglycemia, likely secondary to decreased oral intake and sepsis due to current infectious process -Blood cultures resulting positive for strep A, repeat blood cultures showing no growth to date -Continue IV antibiotics with cefazolin 2 g every 8 hours -Infectious disease following, discussed plan of care with Dr. Loyola stating at this time continue IV antibiotics with plans for discharge home on oral antibiotics. -Podiatry evaluated Dr. Reed debrided hyperkeratotic tissue of right foot plantar region and stated no need for I&D at this time. -Continue symptomatic care and pain management with Tylenol as needed for mild pain/fever, Dilaudid 0.5 mg every 3 hours as needed for moderate pain or 1 mg IVP every 3 hours as needed for severe pain. -Continue glycemic protocol with blood glucose checks every 8 hours and monitor closely for any further signs of hypoglycemia. Resistant hypertension -Secondary to persistently elevated blood pressures with systolic pressures ranging from 180s to 200s, patient's hydrochlorothiazide increased to 50 mg 3 times daily and she was started on hydrochlorothiazide 25 mg daily in addition to clonidine 0.3 mg 3 times daily and losartan 100 mg daily. -Direct renin, aldosterone are both low -Urine metanephrine results pending. -Renal artery duplex showing no evidence for significant renal artery stenosis.. -Cortisol elevated at 24.7. TSH normal findings at 1.580. -Nephrology following for further evaluation of secondary causes of hypertension and assistance with obtaining optimal blood pressure control. Starting patient on Aldactone 25 mg daily and increasing hydrochlorothiazide to 50 mg daily. -Nephrology pursuing 24-hour urinary cortisol Intractable migraine headache -CT head negative for acute intracranial process. -Intractable migraine headache possibly secondary to persistent hypertension. Continue symptomatic care and pain management as well as optimal blood pressure control. History of IVDA with heroin/fentanyl and Methadone dependent. Continue methadone 130 mg daily. Lactic acidosis, resolved Leukocytosis, resolved CODE STATUS: Full code DVT prophylaxis: Heparin This document was prepared using [employer] dictation software. Please allow for errors in field worker, while rare they do occur. Objective - Vital Signs Vital signs: Vital Signs Temp 98.2 F 11/23/23 14:03 Pulse 48 L 11/23/23 14:03 Resp 16 11/23/23 14:03 BP 135/77 11/23/23 14:03 Pulse Ox 97 11/23/23 14:03 FiO2 Intake & Output 11/22/23 11/23/23 11/23/23 18:59 06:59 18:59 Intake Total 960 478 Balance 960 478 Intake: Oral 960 478 Other: Voiding Method Toilet Toilet # Voids 1 1 - Labs CBC & Chem 7: 11/23/23 05:47 11/23/23 05:47 Labs: Abnormal Lab Results - Last 24 Hours (Table) 11/21/23 11/22/23 11/23/23 Range/Units 07:44 17:30 05:47 Hgb 10.3 L (12.0-15.0) g/dL Hct 34.0 L (37.2-46.3) % MCH 24.9 L (27.0-32.0) pg MCHC 30.3 L (32.0-37.0) g/dL RDW 16.3 H (11.5-14.5) % POC Glucose (mg/dL) 127 H (70-110) mg/dL Total Bilirubin (0.3-1.2) mg/dL ALT (8-44) U/L Albumin (3.8-4.9) g/dL Albumin/Globulin Ratio (1.60-3.17) Ratio Renin Direct <2.1 L (3.1 - 57.1) pg/mL 11/23/23 11/23/23 Range/Units 05:47 12:09 Hgb (12.0-15.0) g/dL Hct (37.2-46.3) % MCH (27.0-32.0) pg MCHC (32.0-37.0) g/dL RDW (11.5-14.5) % POC Glucose (mg/dL) 114 H (70-110) mg/dL Total Bilirubin <0.2 L (0.3-1.2) mg/dL ALT 5 L (8-44) U/L Albumin 3.3 L (3.8-4.9) g/dL Albumin/Globulin Ratio 1.10 L (1.60-3.17) Ratio Renin Direct (3.1 - 57.1) pg/mL Microbiology - Last 24 Hours (Table) 11/19/23 03:45 Blood Culture - Preliminary Blood 11/18/23 10:18 Blood Culture - Preliminary Blood
[2023-11-23 17:17] LABS: Glucose,Whole Blood 123 mg/dL (70-110)
[2023-11-23 20:30] LABS: Glucose,Whole Blood 101 mg/dL (70-110)
[2023-11-24 01:10] LABS: Glucose,Whole Blood 96 mg/dL (70-110)
[2023-11-24 06:28] LABS: Glucose,Whole Blood 116 mg/dL (70-110)
--- NOTE | 2023-11-24 08:53 | P.PN ---
Subjective Progress Note Date: 11/22/23 Principal diagnosis: Reason for follow-up is right foot cellulitis abscess and bacteremia Patient is a 58-year-old -[place] female with a past medical history of kidney for hypertension neuropathy and did have a history of drug use presenting to the hospital for evaluation of right foot pain swelling and redness of the patient stepped on a plastic few days prior to that patient diagnosed with right foot cellulitis and did have evidence of strep A bacteremia. On today's evaluation that is 11/22/2023, the patient continues to be afebrile, the patient is on room air and breathing comfortably, the Pt denies having any chest pain or cough, the patient denies having any abdominal pain no vomiting or any diarrhea, has been complaining of mostly headache denies any worsening pain to the right foot area No labs were drawn today Objective - Vital Signs Vital signs: Vital Signs Temp 99.4 F 11/22/23 07:00 Pulse 61 11/22/23 11:00 Resp 16 11/22/23 11:00 BP 185/89 11/22/23 11:00 Pulse Ox 96 11/22/23 11:00 FiO2 Intake & Output 11/21/23 11/22/23 11/22/23 18:59 06:59 18:59 Intake Total 354 480 Balance 354 480 Weight 70.307 kg Intake: Oral 354 480 Other: Voiding Method Toilet Toilet # Voids 2 2 1 # Bowel Movements 1 - Exam GENERAL DESCRIPTION: Middle-aged female lying in bed in no distress RESPIRATORY SYSTEM: Unlabored breathing , decreased breath sounds at bases HEART: S1 S2 regular rate and rhythm , ABDOMEN: Soft , no tenderness EXTREMITIES: Right foot is currently dressed no drainage on the dressing - Labs CBC & Chem 7: 11/23/23 05:47 11/23/23 05:47 Labs: Abnormal Lab Results - Last 24 Hours (Table) 11/21/23 11/22/23 Range/Units 17:15 12:18 POC Glucose (mg/dL) 115 H 150 H (70-110) mg/dL Microbiology - Last 24 Hours (Table) 11/19/23 03:45 Blood Culture - Preliminary Blood 11/18/23 10:18 Blood Culture - Preliminary Blood Assessment and Plan (1) Bacteremia due to Streptococcus Current Visit: Yes Status: Acute Code(s): R78.81 - BACTEREMIA; B95.5 - UNSP STREPTOCOCCUS THE CAUSE OF DISEASES CLASSD ELSR SNOMED Code(s): 376841208644 (2) Cellulitis of right lower extremity Current Visit: Yes Status: Acute Code(s): L03.115 - CELLULITIS OF RIGHT LOWER LIMB SNOMED Code(s): 32024531949814191 (3) Foot infection Current Visit: Yes Status: Acute Code(s): L08.9 - LOCAL INFECTION OF THE SKI N AND SUBCUTANEOUS TISSUE, UNSP SNOMED Code(s): 618671407 Plan: 1patient presented hospital with sepsis in this patient who did have fever el evated white count source is right foot cellulitis in this patient presented with right foot injury from stepping on a plastic and did have evidence of cellulitis. Likely from gram-positive skin natali 2Streptococcus pyogenes bacteremia source likely right foot cellulitis 3-patient with ceftriaxone allergy describing his swelling/diarrhea clinical or true allergy as the patient mention she has taken Keflex without any problem 4-blood cultures has been repeated and so far negative 5-patient did have a CT of the right foot concerning for small fluid collection likely abscess, patient has been evaluated by podiatry not recommending surgical drainage we will keep the patient on cefazolin 6-patient did have some clinical improvement as far as the right foot cellulitis is concern and we will continue patient on cefazolin while inpatient Dictation was produced using [employer] dictation software. please excuse any grammatical, word or spelling errors. Time with Patient: Less than 30
--- NOTE | 2023-11-24 08:53 | P.PN ---
Subjective Progress Note Date: 11/21/23 Principal diagnosis: Reason for follow-up is right foot cellulitis abscess and bacteremia Patient is a 58-year-old -[place] female with a past medical history of kidney for hypertension neuropathy and did have a history of drug use presenting to the hospital for evaluation of right foot pain swelling and redness of the patient stepped on a plastic few days prior to that patient diagnosed with right foot cellulitis and did have evidence of strep A bacteremia. On today's evaluation that is 11/21/2023,the patient remains to be afebrile, patient is on room air not requiring supplemental oxygen and denies any shortness of breath no chest pain or cough.Patient denies having any nausea or vomiting, no abdominal pain and no diarrhea, the patient still complaining of p ain to the right foot area however slightly decreased in intensity Patient did have white count of 8.74, creatinine 0.8 Objective - Vital Signs Vital signs: Vital Signs Temp 98.5 F 11/21/23 14:00 Pulse 59 L 11/21/23 14:00 Resp 16 11/21/23 14:00 BP 122/69 11/21/23 14:00 Pulse Ox 96 11/21/23 14:00 FiO2 Intake & Output 11/20/23 11/21/23 11/21/23 18:59 06:59 18:59 Intake Total 480 354 Balance 480 354 Weight 70.307 kg Intake: Oral 480 354 Other: Voiding Method Toilet Toilet # Voids 3 1 - Exam GENERAL DESCRIPTION: Middle-aged female lying in bed in no distress RESPIRATORY SYSTEM: Unlabored breathing , decreased breath sounds at bases HEART: S1 S2 regular rate and rhythm , ABDOMEN: Soft , no tenderness EXTREMITIES: Right foot is currently dressed no drainage on the dressing - Labs CBC & Chem 7: 11/23/23 05:47 11/23/23 05:47 Labs: Abnormal Lab Results - Last 24 Hours (Table) 11/20/23 11/21/23 11/21/23 Range/Units 17:16 07:44 07:44 Hgb 10.9 L (12.0-15.0) g/dL Hct 35.2 L (37.2-46.3) % MCV 79.8 L (80.0-97.0) FL MCH 24.7 L (27.0-32.0) pg MCHC 31.0 L (32.0-37.0) g/dL RDW 16.3 H (11.5-14.5) % Potassium 3.2 L (3.5-5.5) mmol/L Anion Gap 12.30 H (4.00-12.00) mmol/L BUN 5.8 L (9.0-27.0) mg/dL BUN/Creatinine Ratio 7.25 L (12.00-20.00) Ratio POC Glucose (mg/dL) 125 H (70-110) mg/dL Total Bilirubin 0.2 L (0.3-1.2) mg/dL Albumin 3.4 L (3.8-4.9) g/dL Albumin/Globulin Ratio 1.06 L (1.60-3.17) Ratio Cortisol (3.1-22.4) UG/DL 11/21/23 Range/Units 07:44 Hgb (12.0-15.0) g/dL Hct (37.2-46.3) % MCV (80.0-97.0) FL MCH (27.0-32.0) pg MCHC (32.0-37.0) g/dL RDW (11.5-14.5) % Potassium (3.5-5.5) mmol/L Anion Gap (4.00-12.00) mmol/L BUN (9.0-27.0) mg/dL BUN/Creatinine Ratio (12.00-20.00) Ratio POC Glucose (mg/dL) (70-110) mg/dL Total Bilirubin (0.3-1.2) mg/dL Albumin (3.8-4.9) g/dL Albumin/Globulin Ratio (1.60-3.17) Ratio Cortisol 24.7 H (3.1-22.4) UG/DL Microbiology - Last 24 Hours (Table) 11/19/23 03:45 Blood Culture - Preliminary Blood 11/18/23 10:18 Blood Culture - Preliminary Blood Assessment and Plan (1) Bacteremia due to Streptococcus Current Visit: Yes Status: Acute Code(s): R78.81 - BACTEREMIA; B95.5 - UNSP STREPTOCOCCUS THE CAUSE OF [facility]EASES [facility] SNOMED Code(s): 102345411261 (2) Cellulitis of right lower extremity Current Visit: Yes Status: Acute Code(s): L03.115 - CELLULITIS OF RIGHT LOWER LIMB SNOMED Code(s): 15364030263759891 (3) Foot infection Current Visit: Yes Status: Acute Code(s): L08.9 - LOCAL INFECTION OF THE SKIN AND SUBCUTANEOUS TISSUE, UNSP SNOMED Code(s): 318691497 Plan: 1patient presented hospital with sepsis in this patient who did have fever kvng vated white count source is right foot cellulitis in this patient presented with right foot injury from stepping on a plastic and did have evidence of cellulitis. Likely from gram-positive skin natali 2Streptococcus pyogenes bacteremia source likely right foot cellulitis 3-patient with ceftriaxone allergy describing his swelling/diarrhea clinical or true allergy as the patient mention she has taken Keflex without any problem 4-blood cultures has been repeated and so far negative 5-patient did have a CT of the right foot concerning for small fluid collection likely abscess, patient has been evaluated by podiatry not recommending surgical drainage we will keep the patient on cefazolin 6-patient currently covered with cefazolin 2 g. Every 8 hours and monitor clinical course closely Dictation was produced using [employer] dictation software. please excuse any grammatical, word or spelling errors. Time with Patient: Less than 30
--- NOTE | 2023-11-24 08:55 | P.PN ---
Subjective Progress Note Date: 11/23/23 Principal diagnosis: Reason for follow-up is right foot cellulitis abscess and bacteremia Patient is a 58-year-old -[place] female with a past medical history of kidney for hypertension neuropathy and did have a history of drug use presenting to the hospital for evaluation of right foot pain swelling and redness of the patient stepped on a plastic few days prior to that patient diagnosed with right foot cellulitis and did have evidence of strep A bacteremia. On today's evaluation that is 11/23/2023, Patient is afebrile patient is currently on room air and denies having any shortness of breath, the patient denies any chest pain or cough, the patient denies any nausea vomiting did not have any abdominal pain and no diarrhea. Patient mention improvement in pain and swelling to the right foot still complaining of migraine headache Patient did have white count 6.22 creatinine is 0.7 blood culture repeat has been negative Objective - Vital Signs Vital signs: Vital Signs Temp 98.7 F 11/23/23 07:00 Pulse 55 L 11/23/23 07:00 Resp 16 11/23/23 07:00 BP 157/78 11/23/23 07:00 Pulse Ox 97 11/23/23 07:00 FiO2 Intake & Output 11/22/23 11/23/23 11/23/23 18:59 06:59 18:59 Intake Total 960 360 Balance 960 360 Intake: Oral 960 360 Other: Voiding Method Toilet Toilet # Voids 1 1 - Exam GENERAL DESCRIPTION: Middle-aged female lying in bed in no distress RESPIRATORY SYSTEM: Unlabored breathing , decreased breath sounds at bases HEART: S1 S2 regular rate and rhythm , ABDOMEN: Soft , no tenderness EXTREMITIES: Right foot swelling and redness has improved no drainage - Labs CBC & Chem 7: 11/23/23 05:47 11/23/23 05:47 Labs: Abnormal Lab Results - Last 24 Hours (Table) 11/21/23 11/22/23 11/22/23 Range/Units 07:44 12:18 17:30 Hgb (12.0-15.0) g/dL Hct (37.2-46.3) % MCH (27.0-32.0) pg MCHC (32.0-37.0) g/dL RDW (11.5-14.5) % POC Glucose (mg/dL) 150 H 127 H (70-110) mg/dL Total Bilirubin (0.3-1.2) mg/dL ALT (8-44) U/L Albumin (3.8-4.9) g/dL Albumin/Globulin Ratio (1.60-3.17) Ratio Renin Direct <2.1 L (3.1 - 57.1) pg/mL 11/23/23 11/23/23 Range/Units 05:47 05:47 Hgb 10.3 L (12.0-15.0) g/dL Hct 34.0 L (37.2-46.3) % MCH 24.9 L (27.0-32.0) pg MCHC 30.3 L (32.0-37.0) g/dL RDW 16.3 H (11.5-14.5) % POC Glucose (mg/dL) (70-110) mg/dL Total Bilirubin <0.2 L (0.3-1.2) mg/dL ALT 5 L (8-44) U/L Albumin 3.3 L (3.8-4.9) g/dL Albumin/Globulin Ratio 1.10 L (1.60-3.17) Ratio Renin Direct (3.1 - 57.1) pg/mL Microbiology - Last 24 Hours (Table) 11/19/23 03:45 Blood Culture - Preliminary Blood 11/18/23 10:18 Blood Culture - Preliminary Blood Assessment and Plan (1) Bacteremia due to Streptococcus Current Visit: Yes Status: Acute Code(s): R78.81 - BACTEREMIA; B95.5 - UNSP STREPTOCOCCUS THE CAUSE OF DISEASES [facility] SNOMED Code(s): 040153612032 (2) Cellulitis of right lower extremity Current Visit: Yes Status: Acute Code(s): L03.115 - CELLULITIS OF RIGHT LOWER LIMB SNOMED Code(s): 14096870182451661 (3) Foot infection Current Visit: Yes Status: Acute Code(s): L08.9 - LOCAL INFECTION OF THE SKIN AND SUBCUTANEOUS TISSUE, UNSP SNOMED Code(s): 097377167 Plan: 1patient presented hospital with sepsis in this patient who did have fever elevated white count source is right foot cellulitis in this patient presented with right foot injury from stepping on a plastic and did have evidence of cellulitis. Likely from gram-positive skin natali 2Streptococcus pyogenes bacteremia source likely right foot cellulitis, repeat blood culture has been negative 3--patient did have a CT of the right foot concerning for small fluid collection likely abscess, patient has been evaluated by podiatry not recommending surgical drainage we will keep the patient on cefazolin 4-patient did have some clinical improvement as far as the right foot cellulitis is concern, patient is being treated with the cefazolin will be able to finish therapy with oral Keflex x 7 to 10 days on discharge Dictation was produced using [employer] dictation software. please excuse any grammatical, word or spelling errors. Time with Patient: Less than 30
[2023-11-24] MEDS: BUTALB/APAP/CAFF 50-325-40MG TAB PO PRN (10:14)
--- NOTE | 2023-11-24 11:41 | P.PN ---
Subjective Patient is seen in follow-up for hypertension. Blood pressure better controlled. Oral intake is good. No vomiting or diarrhea. Vital signs are stable. General: No acute distress. HEENT: Head exam is unremarkable. LUNGS: No audible rhonchi or wheezes. HEART: Rate and Rhythm are regular. ABDOMEN: Nontender. EXTREMITITES: No edema. Objective - Vital Signs Vital signs: Vital Signs Temp 98.7 F 11/24/23 07:15 Pulse 50 L 11/24/23 07:15 Resp 15 11/24/23 08:44 BP 148/80 11/24/23 07:15 Pulse Ox 97 11/24/23 07:15 FiO2 Intake & Output 11/23/23 11/24/23 11/24/23 18:59 06:59 18:59 Intake Total 838 236 Balance 838 236 Intake: Oral 838 236 Other: Voiding Method Toilet Toilet # Voids 3 3 - Labs CBC & Chem 7: 11/23/23 05:47 11/23/23 05:47 Labs: Abnormal Lab Results - Last 24 Hours (Table) 11/23/23 11/23/23 11/24/23 Range/Units 12:09 17:16 06:26 POC Glucose (mg/dL) 114 H 123 H 116 H (70-110) mg/dL Assessment and Plan Plan: Assessment: 1. Benign hypertension. Now better controlled. Rule out secondary causes. No evidence of renal artery stenosis on renal angiogram. Aldosterone level less than 3. Cortisol level elevated at 24.7. Plasma metanephrines pending. 2. Hypokalemia from poor intake. No evidence of hyperaldosteronism. Better. 3. Strep bacteremia and lower extremity cellulitis on antibiotics. 4. History of IV drug abuse. Plan: Maintain current antihypertensives. Follow-up plasma metanephrines. Follow-up salivary cortisol level as well as 24-hour urine cortisol collection. Patient to see endocrinology upon discharge. Case discussed with primary team.
[2023-11-24 12:12] LABS: Glucose,Whole Blood 98 mg/dL (70-110)
--- NOTE | 2023-11-24 15:36 | P.PN ---
Subjective Progress Note Date: 11/24/23 No new complaints today. Ongoing headache, improved. Cortisol level was high, 24h urinary cortisol, nighttime salivary cortisol were ordered by nephrology Gen: In NAD, non-toxic HEENT: normocephalic, atraumatic, hearing acuity is intant, mucous membranes moist CVS: perfusing all extremities well, no pitting edema, Respiratory: symmetric chest expansion, no accessory muscle use, GI: soft, NTTP, ND, : no suprapubic tenderness, no CVA tenderness MSK/Derm: no rashes, cyanosis Neuro: CN II-XII intact, no motor weakness, Psych: cooperative, euthymic mood, judgment and insight is intact Hospital course: Patient is a pleasant 58-year-old female with a past medical history of hypertension, neuropathy, nicotine dependence, heroin/fentanyl use, and methadone dependence. She presented to the emergency department on 11/15/2023 with a chief complaint of right lower extremity pain/infected wound. Patient reported that on 11/14/2023 she stepped on a piece of plastic resulting in injury to her foot. Patient reports she was able to remove foreign body/piece of plastic that was stuck in her foot but has since had significant pain, swelling, and redness. She reports she came to the emergency department today as the swelling and redness is now extending up into her lower leg. Upon arrival in the emergency department, patient underwent evaluation. Vital signs upon arrival show blood pressure 205/109, heart rate 87, respiratory rate 16, temp 100.7 F, and SpO2 of 97% on room air. X-ray right foot negative for acute fracture or dislocation showing no signs of foreign body reported by radiologist or noted upon personal review of imaging. Labs completed and reviewed. CBC showing leukocytosis with WBC count of 19.7. BMP showing hypoglycemia with glucose of 65. Lactic acid elevated at 2.3. Liver profile showing elevated AST of 42 otherwise normal findings. Patient reports last injecting heroin and fentanyl on 11/09/23 and denies ever injecting into right lower extremity or foot. Patient started on IV antibiotics and admitted under our services with consultation to infectious disease. Blood culture positive for strep A. Repeat blood cultures ordered and pending. Echocardiogram completed showing normal preserved EF of 60 to 65% with no signs of vegetative growth reported. Ultrasound right groin completed showing multiple enlarged inguinal lymph nodes throughout right groin with largest measuring 4.4 x 1.[address] right foot showing generalized subcutaneous soft tissue swelling with no retained radiopaque foreign body identified and a poorly defined 2.1 x 1.0 x 0.7 cm fluid collection along the plantar aspect just proximal to the ball of the foot, likely small area of abscess. Podiatry consulted, Dr. Reed debrided hyperkeratotic tissue of right foot plantar region and stated no need for I&D at this time. -Direct renin, aldosterone are both low -Cortisol elevated at 24.7. TSH normal findings at 1.580. -Renal artery duplex showing no evidence for significant renal artery stenosis.. Assessment and Plan of Care: Cellulitis right lower extremity Strep A bacteremia Sepsis secondary to above Hypoglycemia, likely secondary to decreased oral intake and sepsis due to current infectious process -Blood cultures resulting positive for strep A, repeat blood cultures showing no growth to date have finalized as such -Continue IV antibiotics with cefazolin 2 g every 8 hours -Infectious disease following, discussed plan of care with Dr. Loyola stating at this time continue IV antibiotics with plans for discharge home on oral antibiotics. -Podiatry evaluated Dr. Reed debrided hyperkeratotic tissue of right foot plantar region and stated no need for I&D at this time. -Continue symptomatic care and pain management with Tylenol as needed for mild pain/fever, Dilaudid 0.5 mg every 3 hours as needed for moderate pain or 1 mg IVP every 3 hours as needed for severe pain. -Continue glycemic protocol with blood glucose checks every 8 hours and monitor closely for any further signs of hypoglycemia. Resistant hypertension -Secondary to persistently elevated blood pressures with systolic pressures ranging from 180s to 200s, patient's hydrochlorothiazide increased to 50 mg 3 times daily and she was started on hydrochlorothiazide 25 mg daily in addition to clonidine 0.3 mg 3 times daily and losartan 100 mg daily. -Urine metanephrine results pending. -Nephrology following for further evaluation of secondary causes of hypertension and assistance with obtaining optimal blood pressure control. Starting patient on Aldactone 25 mg daily and increasing hydrochlorothiazide to 50 mg daily. -Nephrology pursuing 24-hour urinary cortisol, nighttime salivary cortisol Intractable migraine headache -CT head negative for acute intracranial process. -Intractable migraine headache possibly secondary to persistent hypertension. Continue symptomatic care and pain management as well as optimal blood pressure control. -started fioricet, discontinue dilaudid 1mg PRN History of IVDA with heroin/fentanyl and Methadone dependent. Continue methadone 130 mg daily. Lactic acidosis, resolved Leukocytosis, resolved CODE STATUS: Full code DVT prophylaxis: Heparin This document was prepared using [employer] dictation software. Please allow for errors in filing or registry clerk, while rare they do occur. Objective - Vital Signs Vital signs: Vital Signs Temp 98.1 F 11/24/23 14:10 Pulse 45 L 11/24/23 14:10 Resp 16 11/24/23 14:10 BP 106/49 11/24/23 14:10 Pulse Ox 97 11/24/23 14:10 FiO2 Intake & Output 11/23/23 11/24/23 11/24/23 18:59 06:59 18:59 Intake Total 838 716 Balance 838 716 Weight 70.307 kg Intake: Oral 838 716 Other: Voiding Method Toilet Toilet # Voids 3 3 - Labs CBC & Chem 7: 11/23/23 05:47 11/23/23 05:47 Labs: Abnormal Lab Results - Last 24 Hours (Table) 11/23/23 11/24/23 Range/Units 17:16 06:26 POC Glucose (mg/dL) 123 H 116 H (70-110) mg/dL Microbiology - Last 24 Hours (Table) 11/19/23 03:45 Blood Culture - Final Blood 11/18/23 10:18 Blood Culture - Final Blood
[2023-11-24 17:19] LABS: Glucose,Whole Blood 100 mg/dL (70-110)
--- NOTE | 2023-11-24 21:59 | P.PN ---
Subjective Progress Note Date: 11/24/23 Principal diagnosis: Reason for follow-up is right foot cellulitis abscess and bacteremia Patient is a 58-year-old -[place] female with a past medical history of kidney for hypertension neuropathy and did have a history of drug use presenting to the hospital for evaluation of right foot pain swelling and redness of the patient stepped on a plastic few days prior to that patient diagnosed with right foot cellulitis and did have evidence of strep A bacteremia. On today's evaluation that is 11/24/2023, patient has been afebrile, patient is breathing comfortably and is currently on room air, patient denies having any significant cough no chest pain shortness of breath, patient denies nausea vomiting or diarrhea and no abdominal pain, has been complaining of some h eadache denies any worsening pain to the right foot or any drainage. No new labs has been repeated today Objective - Vital Signs Vital signs: Vital Signs Temp 98.1 F 11/24/23 14:10 Pulse 45 L 11/24/23 14:10 Resp 16 11/24/23 14:10 BP 106/49 11/24/23 14:10 Pulse Ox 97 11/24/23 14:10 FiO2 Intake & Output 11/23/23 11/24/23 11/24/23 18:59 06:59 18:59 Intake Total 838 716 Balance 838 716 Weight 70.307 kg Intake: Oral 838 716 Other: Voiding Method Toilet Toilet # Voids 3 3 - Exam GENERAL DESCRIPTION: Middle-aged female lying in bed in no distress RESPIRATORY SYSTEM: Unlabored breathing , decreased breath sounds at bases HEART: S1 S2 regular rate and rhythm , ABDOMEN: Soft , no tenderness EXTREMITIES: Right foot swelling and redness has improved no drainage - Labs CBC & Chem 7: 11/23/23 05:47 11/23/23 05:47 Labs: Abnormal Lab Results - Last 24 Hours (Table) 11/23/23 11/24/23 Range/Units 17:16 06:26 POC Glucose (mg/dL) 123 H 116 H (70-110) mg/dL Microbiology - Last 24 Hours (Table) 11/19/23 03:45 Blood Culture - Final Blood 11/18/23 10:18 Blood Culture - Final Blood Assessment and Plan (1) Bacteremia due to Streptococcus Current Visit: Yes Status: Acute Code(s): R78.81 - BACTEREMIA; B95.5 - UNSP STREPTOCOCCUS THE [facility]USE [facility]ES [facility] SNOMED Code(s): 290867153237 (2) Cellulitis of right lower extremity Current Visit: Yes Status: Acute Code(s): L03.115 - CELLULITIS OF RIGHT LOWER LIMB SNOMED Code(s): 73497787123322738 (3) Foot infection Current Visit: Yes Status: Acute Code(s): L08.9 - LOCAL INFECTION OF THE SKIN AND SUBCUTANEOUS TISSUE, UNSP SNOMED Code(s): 600519739 Plan: 1patient presented hospital with sepsis in this patient who did have fever elevated white count source is right foot cellulitis in this patient presented with right foot injury from stepping on a plastic and did have evidence of cellulitis. Likely from gram-positive skin natali 2Streptococcus pyogenes bacteremia source likely right foot cellulitis, repeat blood culture has been negative 3--patient did have a CT of the right foot concerning for small fluid collection likely abscess, patient has been evaluated by podiatry not recommending surgical drainage we will keep the patient on cefazolin 4-patient is afebrile patient white count is normal, patient to continue with the cefazolin will be able to finish therapy with oral Keflex x 7 days on discharge Dictation was produced using [employer] dictation software. please excuse any grammatical, word or spelling errors. Time with Patient: Less than 30
[2023-11-24 22:19] LABS: Glucose,Whole Blood 85 mg/dL (70-110)
[2023-11-25 02:17] LABS: Glucose,Whole Blood 110 mg/dL (70-110)
[2023-11-25 06:23] LABS: Glucose,Whole Blood 93 mg/dL (70-110)
[2023-11-25 09:25] LABS: BUN/Creat Ratio 23.62 Ratio (12.00-20.00); Blood Urea Nitrogen 18.9 mg/dL (9.0-27.0); Calcium 9.2 mg/dL (8.7-10.3); Carbon Dioxide 28.7 mmol/L (21.6-31.8); Chloride 100 mmol/L (96-109); Glucose 97 mg/dL (70-110); Potassium 4.3 mmol/L (3.5-5.5); Sodium 139 mmol/L (135-145)
--- NOTE | 2023-11-25 10:59 | P.PN ---
Subjective Patient is seen in follow-up for hypertension. Blood pressure controlled. Oral intake is good. No vomiting or diarrhea. Vital signs are stable. General: No acute distress. HEENT: Head exam is unremarkable. LUNGS: No audible rhonchi or wheezes. HEART: Rate and Rhythm are regular. ABDOMEN: Nontender. EXTREMITITES: No edema. Objective - Vital Signs Vital signs: Vital Signs Temp 97.8 F 11/25/23 08:00 Pulse 50 L 11/25/23 08:00 Resp 16 11/25/23 08:48 BP 128/74 11/25/23 08:00 Pulse Ox 99 11/25/23 08:00 FiO2 Intake & Output 11/24/23 11/25/23 11/25/23 18:59 06:59 18:59 Intake Total 716 240 Balance 716 240 Weight 70.307 kg Intake: Oral 716 240 Other: Voiding Method Toilet Toilet Toilet # Voids 3 - Labs CBC & Chem 7: 11/23/23 05:47 11/25/23 03:21 Labs: Abnormal Lab Results - Last 24 Hours (Table) 11/25/23 Range/Units 03:21 BUN/Creatinine Ratio 23.62 H (12.00-20.00) Ratio Microbiology - Last 24 Hours (Table) 11/19/23 03:45 Blood Culture - Final Blood 11/18/23 10:18 Blood Culture - Final Blood Assessment and Plan Plan: Assessment: 1. Benign hypertension. Now better controlled. Rule out secondary causes. No evidence of renal artery stenosis on renal angiogram. Aldosterone level less than 3. Cortisol level elevated at 24.7. Plasma metanephrines pending. 2. Hypokalemia from poor intake. No evidence of hyperaldosteronism. Better. 3. Strep bacteremia and lower extremity cellulitis on antibiotics. 4. History of IV drug abuse. Plan: Maintain current antihypertensives. Follow-up plasma metanephrines. Follow-up salivary cortisol level as well as 24-hour urine cortisol collection. Patient to see endocrinology upon discharge. Case discussed with primary team.
[2023-11-25 11:02] LABS: Glucose,Whole Blood 118 mg/dL (70-110)
--- NOTE | 2023-11-25 13:54 | P.PN ---
Subjective Progress Note Date: 11/25/23 No new complaints today. Ongoing headache, improved. Cortisol level was high, 24h urinary cortisol, nighttime salivary cortisol were ordered by nephrology and pending. Pt says CULVER is better. Gen: In NAD, non-toxic HEENT: normocephalic, atraumatic, hearing acuity is intant, mucous membranes moist CVS: perfusing all extremities well, no pitting edema, Respiratory: symmetric chest expansion, no accessory muscle use, GI: soft, NTTP, ND, : no suprapubic tenderness, no CVA tenderness MSK/Derm: no rashes, cyanosis Neuro: CN II-XII intact, no motor weakness, Psych: cooperative, euthymic mood, judgment and insight is intact Hospital course: Patient is a pleasant 58-year-old female with a past medical history of hypertension, neuropathy, nicotine dependence, heroin/fentanyl use, and methadone dependence. She presented to the emergency department on 11/15/2023 with a chief complaint of right lower extremity pain/infected wound. Patient reported that on 11/14/2023 she stepped on a piece of plastic resulting in injury to her foot. Patient reports she was able to remove foreign body/piece of plastic that was stuck in her foot but has since had significant pain, swelling, and redness. She reports she came to the emergency department today as the swelling and redness is now extending up into her lower leg. Upon arrival in the emergency department, patient underwent evaluation. Vital signs upon arrival show blood pressure 205/109, heart rate 87, respiratory rate 16, temp 100.7 F, and SpO2 of 97% on room air. X-ray right foot negative for acute fracture or dislocation showing no signs of foreign body reported by radiologist or noted upon personal review of imaging. Labs completed and reviewed. CBC showing leukocytosis with WBC count of 19.7. BMP showing hypoglycemia with glucose of 65. Lactic acid elevated at 2.3. Liver profile showing elevated AST of 42 otherwise normal findings. Patient reports last injecting heroin and fentanyl on 11/09/23 and denies ever injecting into right lower extremity or foot. Patient started on IV antibiotics and admitted under our services with consultation to infectious disease. Blood culture positive for strep A. Repeat blood cultures ordered and pending. Echocardiogram completed showing normal preserved EF of 60 to 65% with no signs of vegetative growth reported. Ultrasound right groin completed showing multiple enlarged inguinal lymph nodes throughout right groin with largest measuring 4.4 x 1.[address] right foot showing generalized subcutaneous soft tissue swelling with no retained radio paque foreign body identified and a poorly defined 2.1 x 1.0 x 0.7 cm fluid collection along the plantar aspect just proximal to the ball of the foot, likely small area of abscess. Podiatry consulted, Dr. Reed debrided hyperkeratotic tissue of right foot plantar region and stated no need for I&D at this time. -Direct renin, aldosterone are both low -Cortisol elevated at 24.7. TSH normal findings at 1.580. -Renal artery duplex showing no evidence for significant renal artery stenosis.. Assessment and Plan of Care: Cellulitis right lower extremity Strep A bacteremia Sepsis secondary to above Hypoglycemia, likely secondary to decreased oral intake and sepsis due to current infectious process -Blood cultures resulting positive for strep A, repeat blood cultures showing no growth to date have finalized as such -Continue IV antibiotics with cefazolin 2 g every 8 hours -Infectious disease following, discussed plan of care with Dr. Loyola stating at this time continue IV antibiotics with plans for discharge home on oral antibiotics. -Podiatry evaluated Dr. Reed debrided hyperkeratotic tissue of right foot plantar region and stated no need for I&D at this time. -Continue symptomatic care and pain management with Tylenol as needed for mild pain/fever, Dilaudid 0.5 mg every 3 hours as needed for moderate pain -Continue glycemic protocol with blood glucose checks every 8 hours and monitor closely for any further signs of hypoglycemia. Resistant hypertension -Secondary to persistently elevated blood pressures with systolic pressures ranging from 180s to 200s, patient's hydrochlorothiazide increased to 50 mg 3 times daily and she was started on hydrochlorothiazide 25 mg daily in addition to clonidine 0.3 mg 3 times daily and losartan 100 mg daily. -Urine metanephrine results pending. -Nephrology following for further evaluation of secondary causes of hypertension and assistance with obtaining optimal blood pressure control. Starting patient on Aldactone 25 mg daily and increasing hydrochlorothiazide to 50 mg daily. -Nephrology pursuing 24-hour urinary cortisol, nighttime salivary cortisol Intractable migraine headache -CT head negative for acute intracranial process. -Intractable migraine headache possibly secondary to persistent hypertension. Continue symptomatic care and pain management as well as optimal blood pressure control. -continue fioricet, discontinue dilaudid 1mg PRN History of IVDA with heroin/fentanyl and Methadone dependent. Continue methadone 130 mg daily. Lactic acidosis, resolved Leukocytosis, resolved CODE STATUS: Full code DVT prophylaxis: Heparin This document was prepared using [employer] dictation software. Please allow for errors in [employer]unk dashboard developer, while rare they do occur. Objective - Vital Signs Vital signs: Vital Signs Temp 97.8 F 11/25/23 08:00 Pulse 50 L 11/25/23 08:00 Resp 16 11/25/23 08:48 BP 128/74 11/25/23 08:00 Pulse Ox 99 11/25/23 08:00 FiO2 Intake & Output 11/24/23 11/25/23 11/25/23 18:59 06:59 18:59 Intake Total 716 240 Balance 716 240 Weight 70.307 kg Intake: Oral 716 240 Other: Voiding Method Toilet Toilet Toilet # Voids 3 - Labs CBC & Chem 7: 11/23/23 05:47 11/25/23 03:21 Labs: Abnormal Lab Results - Last 24 Hours (Table) 11/25/23 11/25/23 Range/Units 03:21 11:01 BUN/Creatinine Ratio 23.62 H (12.00-20.00) Ratio POC Glucose (mg/dL) 118 H (70-110) mg/dL Microbiology - Last 24 Hours (Table) 11/19/23 03:45 Blood Culture - Final Blood 11/18/23 10:18 Blood Culture - Final Blood
[2023-11-25 17:06] LABS: Glucose,Whole Blood 98 mg/dL (70-110)
[2023-11-25 20:17] LABS: Glucose,Whole Blood 122 mg/dL (70-110)
[2023-11-26 01:34] LABS: Glucose,Whole Blood 99 mg/dL (70-110)
[2023-11-26 06:18] LABS: Glucose,Whole Blood 86 mg/dL (70-110)
--- NOTE | 2023-11-26 10:47 | P.PN ---
Subjective Patient is seen in follow-up for hypertension. Blood pressure stable. Oral intake is good. No vomiting or diarrhea. Vital signs are stable. General: No acute distress. HEENT: Head exam is unremarkable. LUNGS: No audible rhonchi or wheezes. HEART: Rate and Rhythm are regular. ABDOMEN: Nontender. EXTREMITITES: No edema. Objective - Vital Signs Vital signs: Vital Signs Temp 98.6 F 11/26/23 07:59 Pulse 51 L 11/26/23 07:59 Resp 16 11/26/23 09:01 BP 151/72 11/26/23 07:59 Pulse Ox 98 11/26/23 07:59 FiO2 Intake & Output 11/25/23 11/26/23 11/26/23 18:59 06:59 18:59 Intake Total 835 240 Balance 835 240 Intake: Oral 835 240 Other: Voiding Method Toilet Toilet # Voids 3 2 - Labs CBC & Chem 7: 11/23/23 05:47 11/25/23 03:21 Labs: Abnormal Lab Results - Last 24 Hours (Table) 11/25/23 11/25/23 Range/Units 11:01 20:16 POC Glucose (mg/dL) 118 H 122 H (70-110) mg/dL Assessment and Plan Plan: Assessment: 1. Benign hypertension. Now better controlled. Rule out secondary causes. No evidence of renal artery stenosis on renal angiogram. Aldosterone level less than 3. Cortisol level elevated at 24.7. Plasma metanephrines pending. 2. Hypokalemia from poor intake. No evidence of hyperaldosteronism. Better. 3. Strep bacteremia and lower extremity cellulitis on antibiotics. 4. History of IV drug abuse. Plan: Maintain current antihypertensives. Follow-up plasma metanephrines. Follow-up salivary cortisol level as well as 24-hour urine cortisol collection. Patient to see endocrinology upon discharge. Case discussed with primary team.
[2023-11-26 11:13] LABS: Glucose,Whole Blood 126 mg/dL (70-110)
[2023-11-26] MEDS: polyethylene glycoL 3350 17 GM POWD.PACK PO SCH (11:34)
--- NOTE | 2023-11-26 11:56 | P.PN ---
Subjective Progress Note Date: 11/26/23 No new complaints today. Cortisol level was high, 24h urinary cortisol, nighttime salivary cortisol were ordered by nephrology and pending. Gen: In NAD, non-toxic HEENT: normocephalic, atraumatic, hearing acuity is intant, mucous membranes moist CVS: perfusing all extremities well, no pitting edema, Respiratory: symmetric chest expansion, no accessory muscle use, GI: soft, NTTP, ND, : no suprapubic tenderness, no CVA tenderness MSK/Derm: no rashes, cyanosis Neuro: CN II-XII intact, no motor weakness, Psych: cooperative, euthymic mood, judgment and insight is intact Hospital course: Patient is a pleasant 58-year-old female with a past medical history of hypert ension, neuropathy, nicotine dependence, heroin/fentanyl use, and methadone dependence. She presented to the emergency department on 11/15/2023 with a chief complaint of right lower extremity pain/infected wound. Patient reported that on 11/14/2023 she stepped on a piece of plastic resulting in injury to her foot. Patient reports she was able to remove foreign body/piece of plastic that was stuck in her foot but has since had significant pain, swelling, and redness. She reports she came to the emergency department today as the swelling and redness is now extending up into her lower leg. Upon arrival in the emergency department, patient underwent evaluation. Vital signs upon arrival show blood pressure 205/109, heart rate 87, respiratory rate 16, temp 100.7 F, and SpO2 of 97% on room air. X-ray right foot negative for acute fracture or dislocation showing no signs of foreign body reported by radiologist or noted upon personal review of imaging. Labs completed and reviewed. CBC showing leukocytosis with WBC count of 19.7. BMP showing hypoglycemia with glucose of 65. Lactic acid elevated at 2.3. Liver profile showing elevated AST of 42 otherwise normal findings. Patient reports last injecting heroin and fentanyl on 11/09/23 and denies ever injecting into right lower extremity or foot. Patient started on IV antibiotics and admitted under our services with consultation to infectious disease. Blood culture positive for strep A. Repeat blood cultures ordered and pending. Echocardiogram completed showing normal preserved EF of 60 to 65% with no signs of vegetative growth reported. Ultrasound right groin completed showing multiple enlarged inguinal lymph nodes throughout right groin with largest measuring 4.4 x 1.[address] right foot showing generalized subcutaneous soft tissue swelling with no retained radiopaque foreign body identified and a poorly defined 2.1 x 1.0 x 0.7 cm fluid collection along the plantar aspect just proximal to the ball of the foot, likely small area of abscess. Podiatry consulted, Dr. Reed debrided hyperkeratotic tissue of right foot plantar region and stated no need for I&D at this time. -Direct renin, aldosterone are both low -Cortisol elevated at 24.7. TSH normal findings at 1.580. -Renal artery duplex showing no evidence for significant renal artery stenosis.. Assessment and Plan of Care: Cellulitis right lower extremity Strep A bacteremia Sepsis secondary to above Hypoglycemia, likely secondary to decreased oral intake and sepsis due to current infectious process -Blood cultures resulting positive for strep A, repeat blood cultures showing no growth to date have finalized as such -Continue IV antibiotics with cefazolin 2 g every 8 hours -Infectious disease following, discussed plan of care with Dr. oLyola stating at this time continue IV antibiotics with plans for discharge home on oral antibiotics. -Podiatry evaluated Dr. Reed debrided hyperkeratotic tissue of right foot plantar region and stated no need for I&D at this time. -Continue symptomatic care and pain management with Tylenol as needed for mild pain/fever, Dilaudid 0.5 mg every 3 hours as needed for moderate pain -Continue glycemic protocol with blood glucose checks every 8 hours and monitor closely for any further signs of hypoglycemia. Resistant hypertension -Secondary to persistently elevated blood pressures with systolic pressures ranging from 180s to 200s, patient's hydrochlorothiazide increased to 50 mg 3 times daily and she was started on hydrochlorothiazide 25 mg daily in addition to clonidine 0.3 mg 3 times daily and losartan 100 mg daily. -Urine metanephrine results pending. -Nephrology following for further evaluation of secondary causes of hypertension and assistance with obtaining optimal blood pressure control. Starting patient on Aldactone 25 mg daily and increasing hydrochlorothiazide to 50 mg daily. -Nephrology pursuing 24-hour urinary cortisol, nighttime salivary cortisol Intractable migraine headache -CT head negative for acute intracranial process. -Intractable migraine headache possibly secondary to persistent hypertension. Continue symptomatic care and pain management as well as optimal blood pressure control. -continue fioricet, discontinue dilaudid 1mg PRN History of IVDA with heroin/fentanyl and Methadone dependent. Continue methadone 130 mg daily. Lactic acidosis, resolved Leukocytosis, resolved CODE STATUS: Full code DVT prophylaxis: Heparin This document was prepared using [employer] dictation software. Please allow for errors in fitness attendant, while rare they do occur. Objective - Vital Signs Vital signs: Vital Signs Temp 98.6 F 11/26/23 07:59 Pulse 51 L 11/26/23 07:59 Resp 16 11/26/23 09:01 BP 151/72 11/26/23 07:59 Pulse Ox 98 11/26/23 07:59 FiO2 Intake & Output 11/25/23 11/26/23 11/26/23 18:59 06:59 18:59 Intake Total 835 240 Balance 835 240 Intake: Oral 835 240 Other: Voiding Method Toilet Toilet # Voids 3 2 - Labs CBC & Chem 7: 11/23/23 05:47 11/25/23 03:21 Labs: Abnormal Lab Results - Last 24 Hours (Table) 11/25/23 11/26/23 Range/Units 20:16 11:11 POC Glucose (mg/dL) 122 H 126 H (70-110) mg/dL
[2023-11-26 16:37] LABS: Glucose,Whole Blood 111 mg/dL (70-110)
[2023-11-26] MEDS: SENNOSIDES-DOCUSATE SODIUM 1 EACH TAB PO SCH (20:34)
[2023-11-26 20:40] LABS: Glucose,Whole Blood 84 mg/dL (70-110)
--- NOTE | 2023-11-26 23:20 | P.PN ---
Subjective Progress Note Date: 11/25/23 Principal diagnosis: Reason for follow-up is right foot cellulitis abscess and bacteremia Patient is a 58-year-old -[place] female with a past medical history of kidney for hypertension neuropathy and did have a history of drug use presenting to the hospital for evaluation of right foot pain swelling and redness of the patient stepped on a plastic few days prior to that patient diagnosed with right foot cellulitis and did have evidence of strep A bacteremia. On today's evaluation that is 11/25/2023,the patient denies any fever or any chills, patient is breathing comfortably on room air, the patient denies chest pain shortness of breath and no significant cough, patient denies abdominal pain, no nausea vomiting or diarrhea. Patient did mention improvement in her headache as well as pain to the right lower extremity Patient did have a creatinine 0.8 and no CBC was done today Objective - Vital Signs Vital signs: Vital Signs Temp 97.8 F 11/25/23 08:00 Pulse 50 L 11/25/23 08:00 Resp 16 11/25/23 08:48 BP 128/74 11/25/23 08:00 Pulse Ox 99 11/25/23 08:00 FiO2 Intake & Output 11/24/23 11/25/23 11/25/23 18:59 06:59 18:59 Intake Total 716 240 Balance 716 240 Weight 70.307 kg Intake: Oral 716 240 Other: Voiding Method Toilet Toilet Toilet # Voids 3 - Exam GENERAL DESCRIPTION: Middle-aged female lying in bed in no distress RESPIRATORY SYSTEM: Unlabored breathing , decreased breath sounds at bases HEART: S1 S2 regular rate and rhythm , ABDOMEN: Soft , no tenderness EXTREMITIES: Right foot swelling and redness has improved no drainage - Labs CBC & Chem 7: 11/23/23 05:47 11/25/23 03:21 Labs: Abnormal Lab Results - Last 24 Hours (Table) 11/25/23 11/25/23 Range/Units 03:21 11:01 BUN/Creatinine Ratio 23.62 H (12.00-20.00) Ratio POC Glucose (mg/dL) 118 H (70-110) mg/dL Microbiology - Last 24 Hours (Table) 11/19/23 03:45 Blood Culture - Final Blood 11/18/23 10:18 Blood Culture - Final Blood Assessment and Plan (1) Bacteremia due to Streptococcus Current Visit: Yes Status: Acute Code(s): R78.81 - BACTEREMIA; B95.5 - UNSP STREPTOCOCCUS THE CAUSE OF DISEASES CLASSD [facility] SNOMED Code(s): 092866650215 (2) Cellulitis of right lower extremity Current Visit: Yes Status: Acute Code(s): L03.115 - CELLULITIS OF RIGHT LOWER LIMB SNOMED Code(s): 46136033771312917 (3) Foot infection Current Visit: Yes Status: Acute Code(s): L08.9 - LOCAL INFECTION OF THE SKIN AND SUBCUTANEOUS TISSUE, UNSP SNOMED Code(s): 793063199 Plan: 1patient presented hospital with sepsis in this patient who did have fever elevated white count source is right foot cellulitis in this patient presented with right foot injury from stepping on a plastic and did have evidence of cellulitis. Likely from gram-positive skin natali 2Streptococcus pyogenes bacteremia source likely right foot cellulitis, repeat blood culture has been negative 3--patient did have a CT of the right foot concerning for small fluid collection likely abscess, patient has been evaluated by podiatry not recommending surgical drainage we will keep the patient on cefazolin 4-patient is afebrile patient white count is normal, patient to continue with the cefazolin while inpatient and monitor clinical course closely Dictation was produced using [employer] dictation software. please excuse any grammatical, word or spelling errors. Time with Patient: Less than 30
--- NOTE | 2023-11-26 23:21 | P.PN ---
Subjective Progress Note Date: 11/26/23 Principal diagnosis: Reason for follow-up is right foot cellulitis abscess and bacteremia Patient is a 58-year-old -[place] female with a past medical history of kidney for hypertension neuropathy and did have a history of drug use presenting to the hospital for evaluation of right foot pain swelling and redness of the patient stepped on a plastic few days prior to that patient diagnosed with right foot cellulitis and did have evidence of strep A bacteremia. On today's evaluation that is 11/26/2023,the patient remains to be afebrile, patient is on room air not requiring supplemental oxygen and denies any shortness of breath no chest pain or cough.Patient denies having any nausea or vomiting, no abdominal pain and no diarrhea patient mention decreased pain to t he right foot and no drainage and improvement in her headache No lab draw today Objective - Vital Signs Vital signs: Vital Signs Temp 98.5 F 11/26/23 12:00 Pulse 55 L 11/26/23 18:43 Resp 16 11/26/23 12:00 BP 130/64 11/26/23 18:43 Pulse Ox 99 11/26/23 12:00 FiO2 Intake & Output 11/26/23 11/26/23 11/27/23 06:59 18:59 06:59 Intake Total 358 Balance 358 Intake: Oral 358 Other: Voiding Method Toilet # Voids 2 3 - Exam GENERAL DESCRIPTION: Middle-aged female lying in bed in no distress RESPIRATORY SYSTEM: Unlabored breathing , decreased breath sounds at bases HEART: S1 S2 regular rate and rhythm , ABDOMEN: Soft , no tenderness EXTREMITIES: Right foot swelling and redness has improved no drainage - Labs CBC & Chem 7: 11/23/23 05:47 11/25/23 03:21 Labs: Abnormal Lab Results - Last 24 Hours (Table) 11/25/23 11/26/23 11/26/23 Range/Units 20:16 11:11 16:36 POC Glucose (mg/dL) 122 H 126 H 111 H (70-110) mg/dL Assessment and Plan (1) Bacteremia due to Streptococcus Current Visit: Yes Status: Acute Code(s): R78.81 - BACTEREMIA; B95.5 - UNSP STREPTOCOCCUS THE CAUSE OF DISEASES CLASSD [facility] SNOMED Code(s): 170818205744 (2) Cellulitis of right lower extremity Current Visit: Yes Status: Acute Code(s): L03.115 - CELLULITIS OF RIGHT LOWER LIMB SNOMED Code(s): 42335189803403423 (3) Foot infection Current Visit: Yes Status: Acute Code(s): L08.9 - LOCAL INFECTION OF THE SKI N AND SUBCUTANEOUS TISSUE, UNSP SNOMED Code(s): 776702656 Plan: 1patient presented hospital with sepsis in this patient who did have fever el evated white count source is right foot cellulitis in this patient presented with right foot injury from stepping on a plastic and did have evidence of cellulitis. Likely from gram-positive skin natali 2Streptococcus pyogenes bacteremia source likely right foot cellulitis, repeat blood culture has been negative 3--patient did have a CT of the right foot concerning for small fluid collection likely abscess, patient has been evaluated by podiatry not recommending surgical drainage we will keep the patient on cefazolin 4-patient is afebrile patient white count is normal, patient did have improve ment as for as the right foot cellulitis is consulted continue cefazolin while inpatient finishing therapy with oral Keflex Dictation was produced using [employer] dictation software. please excuse any gr ammatical, word or spelling errors. Time with Patient: Less than 30
[2023-11-27 01:59] LABS: Glucose,Whole Blood 91 mg/dL (70-110)
[2023-11-27 06:19] LABS: Glucose,Whole Blood 93 mg/dL (70-110)
[2023-11-27 08:16] VITALS: RESP 16; TEMP 98.8
--- NOTE | 2023-11-27 11:01 | P.PN ---
Subjective Patient is seen in follow-up for hypertension. Blood pressure stable. Oral intake is good. No vomiting or diarrhea. Vital signs are stable. General: No acute distress. HEENT: Head exam is unremarkable. LUNGS: No audible rhonchi or wheezes. HEART: Rate and Rhythm are regular. ABDOMEN: Nontender. EXTREMITITES: No edema. Objective - Vital Signs Vital signs: Vital Signs Temp 98.8 F 11/27/23 07:37 Pulse 65 11/27/23 10:52 Resp 16 11/27/23 10:52 BP 122/71 11/27/23 10:52 Pulse Ox 99 11/27/23 10:52 FiO2 Intake & Output 11/26/23 11/27/23 11/27/23 18:59 06:59 18:59 Intake Total 358 118 Balance 358 118 Intake: Oral 358 118 Other: Voiding Method Toilet # Voids 3 3 1 - Labs CBC & Chem 7: 11/23/23 05:47 11/25/23 03:21 Labs: Abnormal Lab Results - Last 24 Hours (Table) 11/26/23 11/26/23 Range/Units 11:11 16:36 POC Glucose (mg/dL) 126 H 111 H (70-110) mg/dL Assessment and Plan Plan: Assessment: 1. Benign hypertension. Now better controlled. Rule out secondary causes. No evidence of renal artery stenosis on renal angiogram. Aldosterone level less than 3. Cortisol level elevated at 24.7. Plasma metanephrines pending. 2. Hypokalemia from poor intake. No evidence of hyperaldosteronism. Better. 3. Strep bacteremia and lower extremity cellulitis on antibiotics. 4. History of IV drug abuse. Plan: Maintain current antihypertensives. Follow-up plasma metanephrines. Follow-up salivary cortisol level as well as 24-hour urine cortisol collection. Patient to see endocrinology upon discharge. Case discussed with primary team.
[2023-11-27 11:19] VITALS: BP 122/71; PULSE 65
[2023-11-27 11:26] LABS: Blood Urea Nitrogen 17.4 mg/dL (9.0-27.0); Calcium 9.5 mg/dL (8.7-10.3); Carbon Dioxide 26.5 mmol/L (21.6-31.8); Chloride 101 mmol/L (96-109); Glucose 93 mg/dL (70-110); Magnesium 2.1 mg/dL (1.5-2.4); Potassium 4.6 mmol/L (3.5-5.5); Sodium 139 mmol/L (135-145)
[2023-11-27 11:42] LABS: Glucose,Whole Blood 106 mg/dL (70-110)
--- NOTE | 2023-11-27 16:15 | P.DS ---
Providers Date of admission: 11/16/23 02:08 Expected date of discharge: 11/27/23 Attending physician: Jakob Flaherty MD Consults: 11/16/23 15:09 Consult Physician Routine Consulting Provider: Srini Loyola Consult Reason/Comments: right foot cellulitis Do you want consulting provider notified?: Yes 11/19/23 15:26 Consult Physician Routine Consulting Provider: Nicole Reed Consult Reason/Comments: abscess right foot plantar aspect Do you want consulting provider notified?: Yes 11/20/23 17:02 Consult Physician Routine Consulting Provider: Radha Edge Consult Reason/Comments: resistant hypertension Do you want consulting provider notified?: Yes Primary care physician: Arnav López MD Hospital Course: Cellulitis right lower extremity Strep A bacteremia Sepsis secondary to above Hypoglycemia, likely secondary to decreased oral intake and sepsis due to current infectious process Resistant hypertension Intractable migraine headache History of IVDA with heroin/fentanyl and Methadone dependent. Lactic acidosis, resolved Leukocytosis, resolved Gen: In NAD, non-toxic HEENT: normocephalic, atraumatic, hearing acuity is intant, mucous membranes moist CVS: perfusing all extremities well, no pitting edema, Respiratory: symmetric chest expansion, no accessory muscle use, GI: soft, NTTP, ND, : no suprapubic tenderness, no CVA tenderness MSK/Derm: no rashes, cyanosis Neuro: CN II-XII intact, no motor weakness, Psych: cooperative, euthymic mood, judgment and insight is intact Hospital course: Patient is a pleasant 58-year-old female with a past medical history of hypertension, neuropathy, nicotine dependence, heroin/fentanyl use, and methadone dependence. She presented to the emergency department on 11/15/2023 with a chief complaint of right lower extremity pain/infected wound. Patient reported that on 11/14/2023 she stepped on a piece of plastic resulting in injury to her foot. Patient reports she was able to remove foreign body/piece of plastic that was stuck in her foot but has since had significant pain, swelling, and redness. She reports she came to the emergency department today as the swelling and redness is now extending up into her lower leg. Upon arrival in the emergency department, patient underwent evaluation. Vital signs upon arrival show blood pressure 205/109, heart rate 87, respiratory rate 16, temp 100.7 F, and SpO2 of 97% on room air. X-ray right foot negative for acute fracture or dislocation showing no signs of foreign body reported by radiologist or noted upon personal review of imaging. Labs completed and reviewed. CBC showing leukocytosis with WBC count of 19.7. BMP showing hypoglycemia with glucose of 65. Lactic acid elevated at 2.3. Liver profile showing elevated AST of 42 otherwise normal findings. Patient reports last injecting heroin and fentanyl on 11/09/23 and denies ever injecting into right lower extremity or foot. Patient started on IV antibiotics and admitted under our services with consultation to infectious disease. Blood culture positive for strep A. Repeat blood cultures ordered and pending. Echocardiogram completed showing normal preserved EF of 60 to 65% with no signs of vegetative growth reported. Ultrasound right groin completed showing multiple enlarged inguinal lymph nodes throughout right groin with largest measuring 4.4 x 1[address] right foot showing generalized subcutaneous soft tissue swelling with no retained radiopaque foreign body identified and a poorly defined 2.1 x 1.0 x 0.7 cm fluid collection along the plantar aspect just proximal to the ball of the foot, likely small area of abscess. Podiatry consulted, Dr. Reed debrided hyperkeratotic tissue of right foot plantar region and stated no need for I&D at this time. -Direct renin, aldosterone are both low -Cortisol elevated at 24.7. TSH normal findings at 1.580. -Renal artery duplex showing no evidence for significant renal artery stenosis.. -Endocrinology referral placed on discharge Patient had some blood pressure medication changes made while in house, noted in the discharge med rec. She was also noted to require a four-wheel walker for steadiness of gait while walking, which was prescribed to her. She will follow- up with primary care physician. She was discharged to [facility] for rehab. I spent 40 minutes coordinating this discharge Patient Condition at Discharge: Good Plan - Discharge Summary New Discharge Prescriptions: New Spironolactone [Aldactone] 25 mg PO DAILY #30 tab hydroCHLOROthiazide [Hydrodiuril] 50 mg PO DAILY #30 tab polyethylene glycoL 3350 [Miralax] 17 gm PO DAILY #30 packet hydrALAZINE HCL [Apresoline] 50 mg PO TID #90 tab carvediloL [Coreg*] 12.5 mg PO BID-W/MEALS #60 tab Losartan [Cozaar] 100 mg PO DAILY #60 tab Continue traZODone HCL [Desyrel] 50 - 150 mg PO HS PRN PRN Reason: Insomnia Thiamine [Vitamin B-1] 100 mg PO DAILY Calcium/Zinc/Mag/D3 1 tab PO TID PRN PRN Reason: CRAMPS cloNIDine HCL 0.3 mg PO TID Acetaminophen [Tylenol] 650 mg PO Q4H Mylanta 30 ml PO Q4H PRN PRN Reason: Gi Upset Multivitamins, Thera [Multivitamin (formulary)] 1 tab PO DAILY Sertraline [Zoloft] 50 mg PO DAILY Sennosides-Docusate Sodium [Senokot-S] 1 tab PO BID Methadone HCl [Methadone Intensol] 130 mg PO DAILY Discontinued Losartan [Cozaar] 50 mg PO DAILY Discharge Medication List Acetaminophen [Tylenol] 650 mg PO Q4H 11/16/23 [History] Calcium/Zinc/Mag/D3 1 tab PO TID PRN 11/16/23 [History] Methadone HCl [Methadone Intensol] 130 mg PO DAILY 11/16/23 [History] Multivitamins, Thera [Multivitamin (formulary)] 1 tab PO DAILY 11/16/23 [History] Mylanta 30 ml PO Q4H PRN 11/16/23 [History] Sennosides-Docusate Sodium [Senokot-S] 1 tab PO BID 11/16/23 [History] Sertraline [Zoloft] 50 mg PO DAILY 11/16/23 [History] Thiamine [Vitamin B-1] 100 mg PO DAILY 11/16/23 [History] cloNIDine HCL 0.3 mg PO TID 11/16/23 [History] traZODone HCL [Desyrel] 50 - 150 mg PO HS PRN 11/16/23 [History] Losartan [Cozaar] 100 mg PO DAILY #60 tab 11/27/23 [Rx] Spironolactone [Aldactone] 25 mg PO DAILY #30 tab 11/27/23 [Rx] carvediloL [Coreg*] 12.5 mg PO BID-W/MEALS #60 tab 11/27/23 [Rx] hydrALAZINE HCL [Apresoline] 50 mg PO TID #90 tab 11/27/23 [Rx] hydroCHLOROthiazide [Hydrodiuril] 50 mg PO DAILY #30 tab 11/27/23 [Rx] polyethylene glycoL 3350 [Miralax] 17 gm PO DAILY #30 packet 11/27/23 [Rx] Follow up Appointment(s)/Referral(s): Arnav López MD [Primary Care Provider] - 1-2 days Aureliano Branham MD [REFERRING] - 1 Week (hypercortisolism) Activity/Diet/Wound Care/Special Instructions: *Call [facility] to transport at discharge: [phone] PT HAS HOME MEDS IN MED ROOM Discharge Disposition: OTHER INSTITUTION NOT DEFINED
[2023-11-28 16:42] LABS: Cortisol, Urine Free by LC-MS 19.6 ug/L; Free Cortisol 24 Hour,Urine 32.8 ug/day (<45.0)
[2023-11-28 19:40] LABS: Metanephrine, Free <25 pg/mL (< OR = 57); Normetanephrine, Free 68 pg/mL (< OR = 148); Total, Free (MN + NMN) 68 pg/mL (< OR = 205)
== END 2023-11-27 12:05 | disposition other institution (70) | DRG 720 ==
LOC: EC 19:44 → 6NMEDSUR 11-16 02:07 → OBSVTOIN 11-16 02:08 → 6NMEDSUR 11-16 02:27
PROVIDERS: ADMIT Internal Medicine; ATTEND Internal Medicine
DX: A40.9 Streptococcal sepsis, unspecified (principal); E11.42 Type 2 diabetes mellitus with diabetic polyneuropathy; E11.649 Type 2 diabetes mellitus with hypoglycemia without coma; E87.6 Hypokalemia; F17.200 Nicotine dependence, unspecified, uncomplicated; G43.919 Migraine, unspecified, intractable, without status migrainosus; I10 Essential (primary) hypertension; I16.0 Hypertensive urgency; I1A.0 Resistant hypertension; L03.115 Cellulitis of right lower limb; L02.611 Cutaneous abscess of right foot; Z71.3 Dietary counseling and surveillance; E87.20 Acidosis, unspecified; R26.2 Difficulty in walking, not elsewhere classified; F11.20 Opioid dependence, uncomplicated; S91.331S Puncture wound without foreign body, right foot, sequela; L08.9 Local infection of the skin and subcutaneous tissue, unspecified; W45.8XXS Other foreign body or object entering through skin, sequela; M48.00 Spinal stenosis, site unspecified; R59.0 Localized enlarged lymph nodes; R74.01 Elevation of levels of liver transaminase levels; Z88.8 Allergy status to other drugs, medicaments and biological substances; Z79.899 Other long term (current) drug therapy; Z11.52 Encounter for screening for COVID-19; Z88.1 Allergy status to other antibiotic agents
CPT/HCPCS: 36415; 70450; 74175; 80048; 80053; 81003; 82088; 82530; 82533; 82565; 83605; 83735; 83835; 84244; 84443; 85025; 85027; 87040; 87077; 87186; 87636; 93306; 93975; 96365; 96366; 96375; 99291

== ENCOUNTER 2024-01-05 09:06 | Observation (INO) | payer OTHER ==
[2024-01-05 10:01] LABS: Anisocytosis Slight; Basophils % (A) 1 %; Eosinophils # (A) 0.4 k/uL (0-0.7); Eosinophils % (A) 9 %; HCT 40.1 % (34.0-46.0); HGB 12.3 gm/dL (11.4-16.0); Hypochromasia Moderate; Lymphocytes # (A) 1.4 k/uL (1.0-4.8); Lymphocytes % (A) 29 %; MCH 25.8 pg (25.0-35.0); MCHC 30.8 g/dL (31.0-37.0); MCV 83.7 fL (80.0-100.0); Mean Platelet Volume 8.6; Monocytes # (A) 0.3 k/uL (0-1.0); Monocytes % (A) 7 %; Neutrophils # (A) 2.5 k/uL (1.3-7.7); Neutrophils % (A) 51 %; Platelet Count 243 k/uL (150-450); RBC 4.79 m/uL (3.80-5.40); RDW 17.3 % (11.5-15.5); WBC 4.8 k/uL (3.8-10.6)
[2024-01-05] MEDS: SODIUM CHLORIDE 0.9% 1,000 ML IV STA (10:16)
[2024-01-05] MEDS: LOSARTAN 50 MG TAB PO STA ×3 (10:17→14:20)
[2024-01-05] MEDS: hydrALAZINE HCL 20 MG/ML 1 ML VIAL IVP STA ×2 (10:19→10:56)
--- NOTE | 2024-01-05 10:25 | XR ---
EXAMINATION TYPE: XR chest 1V portable DATE OF EXAM: 01/05/2024 COMPARISON: NONE HISTORY: Hypertension TECHNIQUE: Single frontal view of the chest is obtained. FINDINGS: There is no focal air space opacity, pleural effusion, or pneumothorax seen. The cardiac silhouette size is within normal limits. The osseous structures are intact. Arthropathy of the shou lders. Underlying COPD suspected. IMPRESSION: No acute process.
[2024-01-05 10:35] LABS: ALT 15 U/L (4-34); AST 29 U/L (14-36); African American GFR (CKD) 79 (>60 ml/min/1.73 sqM); Albumin 4.2 g/dL (3.5-5.0); Alkaline Phosphatase 83 U/L (38-126); Anion Gap 6 mmol/L; Blood Urea Nitrogen 16 mg/dL (7-17); Calcium 9.1 mg/dL (8.4-10.2); Carbon Dioxide 25 mmol/L (22-30); Chloride 109 mmol/L (98-107); Glucose 85 mg/dL (74-99); Magnesium 2.3 mg/dL (1.6-2.3); Non-African American GFR(CKD) 69 (>60 ml/min/1.73 sqM); Potassium 4.4 mmol/L (3.5-5.1); Sodium 140 mmol/L (137-145); Total Bilirubin 0.4 mg/dL (0.2-1.3); Total Protein 7.1 g/dL (6.3-8.2)
[2024-01-05] MEDS: METOCLOPRAMIDE 5 MG/ML 2 ML VIAL IVP STA (10:56)
[2024-01-05] MEDS: diphenhydrAMINE 50 MG/ML 1 ML VIAL IVP STA (10:56)
--- NOTE | 2024-01-05 11:21 | CT ---
EXAMINATION TYPE: CT brain wo con DATE OF EXAM: 01/05/2024 COMPARISON: 11/20/2019 HISTORY: HEADACHE AND HIGH BP CT DLP: 1138.4 mGycm Automated exposure control for dose reduction was used. FINDINGS: No midline shift. No mass effect. Orbits are symmetric. Changes of chronic sinusitis. Partially empty sella turcica. Tiny hypodensity within the right basal ganglia stable likely in the basis of a tiny remote lacunar infarct. IMPRESSION: NO ACUTE HEMORRHAGE OR MASS EFFECT.
[2024-01-05 11:51] LABS: Appearance,Urine Clear (Clear); Bilirubin,Urine Negative (Negative); Blood,Urine Negative (Negative); Color,Urine Colorless; Glucose,Urine (UA) Negative (Negative); Ketones,Urine Negative (Negative); Leukocyte Esterase,Urine Negative (Negative); Nitrite,Urine Negative (Negative); PH, Urine 6.5 (5.0-8.0); Protein,Urine Negative (Negative); Specific Gravity,Urine 1.008 (1.001-1.035); Urobilinogen,Urine <2.0 mg/dL (<2.0)
[2024-01-05] MEDS: KETOROLAC 15 MG/ML 1 ML VIAL IVP STA (11:58)
[2024-01-05] MEDS: MAGNESIUM SULFATE-D5W PMX 1 GM in DEXTROSE/WATER 1 100ML.BAG IVPB ONE (11:59)
[2024-01-05] MEDS: LABETALOL 5 MG/ML VIAL MDV IVP STA (12:12)
[2024-01-05] MEDS ORDERED: ONDANSETRON 4 MG/2 ML VIAL IVP PRN (12:29)
[2024-01-05] MEDS ORDERED: NALOXONE 0.4 MG/ML 1 ML VIAL IV PRN (12:29)
--- NOTE | 2024-01-05 12:36 | ED ---
General Adult HPI - General Chief complaint: Recheck/Abnormal Lab/Rx Stated complaint: Hypertension Time Seen by Provider: 01/05/24 09:40 Source: patient, RN notes reviewed, old records reviewed Mode of arrival: ambulatory Limitations: no limitations - History of Present Illness Initial comments: Patient is a 58-year-old female who presents emergency department complaining of hypertension and headache. Has a history of hypertension. Also has a history of fentanyl abuse. Does not use IV drugs. She has been at [facility] with last known use of fentanyl earlier this week on Monday or Monday. Presents for further evaluation at this time. Has been having high blood pressure since last night. States she has a severe headache with it that is generalized and achy. Is typically on Catapres, hydralazine, losartan. Did not take her losartan. Denies any other complaints at this time including weakness, numbness, chest pain, shortness of breath, abdominal pain. - Related Data Home Medications Medication Instructions Recorded Confirmed Acetaminophen [Tylenol] 650 mg PO Q4H 11/16/23 01/05/24 Calcium/Zinc/Mag/D3 1 tab PO TID PRN 11/16/23 01/05/24 Methadone HCl [Methadone Intensol] 145 mg PO DAILY 11/16/23 01/05/24 Multivitamins, Thera [Multivitamin 1 tab PO DAILY 11/16/23 01/05/24 (formulary)] Sertraline [Zoloft] 50 mg PO DAILY 11/16/23 01/05/24 Thiamine [Vitamin B-1] 100 mg PO DAILY 11/16/23 01/05/24 cloNIDine HCL 0.1 - 0.3 mg PO Q4H PRN 11/16/23 01/05/24 Ibuprofen [Motrin Ib] 600 mg PO Q6H PRN 01/05/24 01/05/24 Mirtazapine [Remeron] 15 mg PO HS 01/05/24 01/05/24 hydroCHLOROthiazide [Hydrodiuril] 25 mg PO DAILY 01/05/24 01/05/24 hydroCHLOROthiazide [Hydrodiuril] 25 mg PO ONETIME 01/05/24 01/05/24 Previous Rx's Medication Instructions Recorded carvediloL [Coreg*] 12.5 mg PO BID-W/MEALS #60 tab 11/27/23 Allergies Allergy/AdvReac Type Severity Reaction Status Date / Time amlodipine Allergy Rash/Hives Verified 01/05/24 12:12 & Swelling of legs and feet ceftriaxone [From Rocephin] AdvReac Swelling & Verified 01/05/24 12:12 Diarrhea Review of Systems ROS Statement: Those systems with pertinent positive or pertinent negative responses have been documented in the HPI. Review of Systems: CONST: Denies fever EYES: Denies blurry vision ENT: Denies nasal congestion C/V: Denies Chest pain RESP: Denies shortness of breath GI: Denies abdominal pain : Denies dysuria SKIN: Denies rash. MSK: Denies joint pain. NEURO: Endorses headache ROS Other: All systems not noted in ROS Statement are negative. Past Medical History Past Medical History: Hypertension Additional Past Medical History / Comment(s): neuropathy. heroin/fentanyl use last 11/09/23 History of Any Multi-Drug Resistant Organisms: None Reported Past Surgical History: Bladder Surgery Additional Past Surgical History / Comment(s): ulcer Past Anesthesia/Blood Transfusion Reactions: No Reported Reaction Past Psychological History: No Psychological Hx Reported Smoking Status: Current every day smoker Past Alcohol Use History: None Reported Past Drug Use History: Heroin General Exam - General Exam Comments Initial Comments: General: Appears in no acute distress. HEAD: Normal with no signs of head trauma. EYES: PERRLA, EOMI, conjunctiva normal, no discharge. Pupils 3 mm and equal bilaterally. ENT: Hearing grossly intact, normal oropharynx. RESPIRATORY: Clear breath sounds bilaterally. No wheezes, rales, or rhonchi. C/V: Regular rate and rhythm. S1 and S2 auscultated, no edema, peripheral pulses 2+ and intact throughout ABD: Abd is soft, nontender, nondistended EXT: Normal range of motion, no obvious deformity SKIN: No rashes or lesions observed on exposed skin. NEURO: Alert and oriented x 4. Cranial nerves II-XII intact. No focal sensory or strength deficits. Limitations: no limitations Course Vital Signs 01/05/24 01/05/24 01/05/24 09:34 10:57 11:26 Temperature 97.9 F Pulse Rate 67 64 64 Respiratory 18 18 18 Rate Blood Pressure 208/106 190/100 197/98 O2 Sat by Pulse 98 99 99 Oximetry 01/05/24 01/05/24 12:01 12:32 Temperature Pulse Rate 69 69 Respiratory 18 18 Rate Blood Pressure 202/105 208/118 O2 Sat by Pulse 99 100 Oximetry Medical Decision Making - Medical Decision Making Was pt. sent in by a medical professional or institution (CHERYL Craven, CIRCULATION SALES REPRESENTATIVE, urgent care, hospital, or custodial...) When possible be specific @ -No Did you speak to anyone other than the patient for history (EMS, parent, family, police, friend...)? What history was obtained from this source @ -No Did you review nursing and triage notes (agree or disagree)? Why? @ -I reviewed and agree with nursing and triage notes Were old charts reviewed (outside hosp., previous admission, EMS record, old EKG, old radiological studies, urgent care reports/EKG's, custodial records)? Report findings @ -No old charts were reviewed Differential Diagnosis (chest pain, altered mental status, abdominal pain women, abdominal pain men, vaginal bleeding, weakness, fever, dyspnea, syncope, headache, dizziness, GI bleed, back pain, seizure, CVA, palpatations, mental health, musculoskeletal)? @ -Hypertension, electrolyte abnormality, opiate withdrawal, headache, hypertensive emergency, hypertensive urgency. This list is not all inclusive. EKG interpreted by me (3pts min.). @ -As above X-rays interpreted by me (1pt min.). @ -Chest x-ray reveals no obvious acute cardiopulmonary process. CT interpreted by me (1pt min.). @ -Brain CT shows no obvious acute intracranial process. U/S interpreted by me (1pt. min.). @ -None done What testing was considered but not performed or refused? (CT, X-rays, U/S, labs)? Why? @ -None What meds were considered but not given or refused? Why? @ -None Did you discuss the management of the patient with other professionals (professionals i.e. CHERYL Craven, CIRCULATION SALES REPRESENTATIVE, lab, RT, psych nurse, social service director, senior asset manager, teacher, penal officer, case liner)? Give summary @ -No Was smoking cessation discussed for >3mins.? @ -No Was critical care preformed (if so, how long)? @ -No Were there social determinants of health that impacted care today? How? (Homelessness, low income, unemployed, alcoholism, drug addiction, transportation, low edu. Level, literacy, decrease access to med. care, custodial, rehab)? @ -No Was there de-escalation of care discussed even if they declined (Discuss DNR or withdrawal of care, Hospice)? DNR status @ -No What co-morbidities impacted this encounter? (DM, HTN, Smoking, COPD, CAD, Cancer, CVA, ARF, Chemo, Hep., AIDS, mental health diagnosis, sleep apnea, morbid obesity)? @ -None Was patient admitted / discharged? Hospital course, mention meds given and route, prescriptions, significant lab abnormalities, going to OR and other pertinent info. @ -Patient presents with what appears to be hypertensive urgency. She also has a headache. We will obtain CT brain as well as basic labs. Patient will be administered her home antihypertensive medications which she has not taken today. , Losartan. She will also be given hydralazine. She will be given a partial migraine cocktail. Patient was in agreement this plan. Labs unremarkable. EKG unremarkable. Imaging negative. Patient initially had some response to the hydralazine however blood pressure jumped right back up in the systolics 200s over 100s. No end organ dysfunction and therefore diagnosis is hypertensive urgency at this time. She will be given labetalol which had minimal effect. Dose of Catapres ordered. . Patient in agreement this plan. I spoke with Dr. Irene of [facility] who accepted the admi ssion. We discussed obtaining cardiology consult and he would like to defer at this time which I believe is reasonable. Undiagnosed new problem with uncertain prognosis? @ -No Drug Therapy requiring intensive monitoring for toxicity (Heparin, Nitro, Insulin, Cardizem)? @ -No Were any procedures done? @ -No Diagnosis/symptom? @ -Hypertensive urgency Acute, or Chronic, or Acute on Chronic? @ -Acute Uncomplicated (without systemic symptoms) or Complicated (systemic symptoms)? @ -Complicated Side effects of treatment? @ -No Exacerbation, Progression, or Severe Exacerbation? @ -No Poses a threat to life or bodily function? How? (Chest pain, [place], [place], pneumonia, PE, COPD, DKA, ARF, appy, cholecystitis, CVA, Diverticulitis, Homicidal, Suicidal, threat to staff... and all critical care pts) @ -Possibly, yes - Lab Data Result diagrams: 01/05/24 0901/05/24 09:24 Lab Results 01/05/24 01/05/24 01/05/24 Range/Units 09:24 09:24 11:26 WBC 4.8 (3.8-10.6) k/uL RBC 4.79 (3.80-5.40) m/uL Hgb 12.3 (11.4-16.0) gm/dL Hct 40.1 (34.0-46.0) % MCV 83.7 (80.0-100.0) fL MCH 25.8 (25.0-35.0) pg MCHC 30.8 L (31.0-37.0) g/dL RDW 17.3 H (11.5-15.5) % Plt Count 243 (150-450) k/uL MPV 8.6 Neutrophils % 51 % Lymphocytes % 29 % Monocytes % 7 % Eosinophils % 9 % Basophils % 1 % Neutrophils # 2.5 (1.3-7.7) k/uL Lymphocytes # 1.4 (1.0-4.8) k/uL Monocytes # 0.3 (0-1.0) k/uL Eosinophils # 0.4 (0-0.7) k/uL Basophils # 0.0 (0-0.2) k/uL Hypochromasia Moderate Anisocytosis Slight Sodium 140 (137-145) mmol/L Potassium 4.4 (3.5-5.1) mmol/L Chloride 109 H (98-107) mmol/L Carbon Dioxide 25 (22-30) mmol/L Anion Gap 6 mmol/L BUN 16 (7-17) mg/dL Creatinine 0.92 (0.52-1.04) mg/dL Est GFR (CKD-EPI)AfAm 79 (>60 ml/min/1.73 sqM) Est GFR (CKD-EPI)NonAf 69 (>60 ml/min/1.73 sqM) Glucose 85 (74-99) mg/dL Calcium 9.1 (8.4-10.2) mg/dL Magnesium 2.3 (1.6-2.3) mg/dL Total Bilirubin 0.4 (0.2-1.3) mg/dL AST 29 (14-36) U/L ALT 15 (4-34) U/L Alkaline Phosphatase 83 (38-126) U/L Total Protein 7.1 (6.3-8.2) g/dL Albumin 4.2 (3.5-5.0) g/dL Urine Color Colorless Urine Appearance Clear (Clear) Urine pH 6.5 (5.0-8.0) Ur Specific [place] 1.008 (1.001-1.035) Urine Protein Negative (Negative) Urine Glucose (UA) Negative (Negative) Urine Ketones Negative (Negative) Urine Blood Negative (Negative) Urine Nitrite Negative (Negative) Urine Bilirubin Negative (Negative) Urine Urobilinogen <2.0 (<2.0) mg/dL Ur Leukocyte Esterase Negative (Negative) - EKG Data -: EKG Interpreted by Me EKG Comments: 12-lead Electrocardiogram Interpretation Note EKG was reviewed and interpreted by myself. 12-lead ECG performed at 0942 is interpreted by me as revealing normal sinus rhythm at a rate of 66 beats per minute. [place] is normal. VA interval is 182 ms, QRS duration is 90 ms, QTc is 438 ms.. There were no ST or T wave abnormalities to suggest myocardial ischemia or injury. R wave progression across the precordium was satisfactory. By my interpretation this EKG is non-diagnostic for acute ischemia. Disposition Clinical Impression: Hypertension, Hypertensive urgency Disposition: ADMITTED IP TO THIS HOSP Condition: Stable Referrals: Gustavo López DO [Primary Care Provider] - 1-2 days Time of Disposition: 12:36
[2024-01-05] MEDS ORDERED: cloNIDine HCL 0.1 MG TAB PO PRN (12:37)
[2024-01-05] MEDS: SODIUM CHLORIDE 0.9% 1,000 ML IV SCH (13:15)
[2024-01-05] MEDS: cloNIDine HCL 0.1 MG TAB PO STA (13:16)
[2024-01-05] MEDS ORDERED: IBUPROFEN 600 MG TAB PO PRN (13:38)
[2024-01-05] MEDS: METHADONE 5 MG TAB PO SCH (13:43)
[2024-01-05] MEDS: METHADONE 10 MG TAB PO SCH (13:44)
--- NOTE | 2024-01-05 13:49 | P.HPIM ---
History of Present Illness Patient is a pleasant 58-year-old female came in with complaints of hypertension and headache at a computer at this time patient denies any symptoms of shortness of breath blurry vision chest pain abdominal pain. Patient chest x-ray did not show any pulm edema. Patient does have history of IV drug abuse in the past and is on methadone. Patient is presently not having any withdrawals patient has been taking methadone patient takes 1.5 mg of methadone as an outpatient and this was already ordered. Patient always has an acute visit uncontrolled hypertension and patient is an -[place] female patient is on hydrochlorothiazide 25 mg twice a day along with losartan and clonidine. Patient was given multiple medications here. REVIEW OF SYSTEMS: CONSTITUTIONAL: No fever, no malaise, no fatigue. HEENT: No recent visual problems or hearing problems. Denied any sore throat. CARDIOVASCULAR: No chest pain, orthopnea, PND, no palpitations, no syncope. PULMONARY: No shortness of breath, no cough, no hemoptysis. GASTROINTESTINAL: No diarrhea, no nausea, no vomiting, no abdominal pain. NEUROLOGICAL: no weakness, no numbness. HEMATOLOGICAL: Denies any bleeding or petechiae. GENITOURINARY: Denies any burning micturition, frequency, or urgency. MUSCULOSKELETAL/RHEUMATOLOGICAL: Denies any joint pain, swelling, or any muscle pain. ENDOCRINE: Denies any polyuria or polydipsia. The rest of the 14-point review of systems is negative. PHYSICAL EXAMINATION: GENERAL: The patient is alert and oriented x3, not in any acute distress. Well developed, well nourished. HEENT: Pupils are round and equally reacting to light. EOMI. No scleral icterus. No conjunctival pallor. Normocephalic, atraumatic. No pharyngeal erythema. No thyromegaly. CARDIOVASCULAR: S1 and S2 present. No murmurs, rubs, or gallops. PULMONARY: Chest is clear to auscultation, no wheezing or crackles. ABDOMEN: Soft, nontender, nondistended, normoactive bowel sounds. No palpable organomegaly. MUSCULOSKELETAL: No joint swelling or deformity. EXTREMITIES: No cyanosis, clubbing, or pedal edema. NEUROLOGICAL: Gross neurological examination did not reveal any focal deficits. SKIN: No rashes. Assessment and plan Hypertensive urgency or accelerated hypertension: Patient will be resumed on home medications except for hydrochlorothiazide patient will be started on chlorthalidone 50 mg daily, increase the dose of losartan to 100 mg, resume on clonidine discontinue IV fluids and use hydralazine p.o. as needed for blood pressures if they are elevated above 180/100 -Hypertension -Heroin use history -Depression for which patient is on SSRIs which will be resumed patient is in rehab and will be resumed on methadone DVT prophylaxis: Early ambulation Past Medical History Past Medical History: Hypertension Additional Past Medical History / Comment(s): neuropathy. heroin/fentanyl use last 11/09/23 History of Any Multi-Drug Resistant Organisms: None Reported Past Surgical History: Bladder Surgery Additional Past Surgical History / Comment(s): ulcer Past Anesthesia/Blood Transfusion Reactions: No Reported Reaction Past Psychological History: No Psychological Hx Reported Smoking Status: Current every day smoker Past Alcohol Use History: None Reported Past Drug Use History: Heroin Medications and Allergies Home Medications Medication Instructions Recorded Confirmed Type Acetaminophen [Tylenol] 650 mg PO Q4H 11/16/23 01/05/24 History Calcium/Zinc/Mag/D3 1 tab PO TID PRN 11/16/23 01/05/24 History Methadone HCl [Methadone Intensol] 145 mg PO DAILY 11/16/23 01/05/24 History Multivitamins, Thera [Multivitamin 1 tab PO DAILY 11/16/23 01/05/24 History (formulary)] Sertraline [Zoloft] 50 mg PO DAILY 11/16/23 01/05/24 History Thiamine [Vitamin B-1] 100 mg PO DAILY 11/16/23 01/05/24 History cloNIDine HCL 0.1 - 0.3 mg PO Q4H PRN 11/16/23 01/05/24 History carvediloL [Coreg*] 12.5 mg PO BID-W/MEALS #60 tab 11/27/23 01/05/24 Rx Ibuprofen [Motrin Ib] 600 mg PO Q6H PRN 01/05/24 01/05/24 History Mirtazapine [Remeron] 15 mg PO HS 01/05/24 01/05/24 History hydroCHLOROthiazide [Hydrodiuril] 25 mg PO DAILY 01/05/24 01/05/24 History hydroCHLOROthiazide [Hydrodiuril] 25 mg PO ONETIME 06/14/24 06/14/24 History Allergies Allergy/AdvReac Type Severity Reaction Status Date / Time amlodipine Allergy Rash/Hives Verified 01/05/24 12:12 & Swelling of legs and feet ceftriaxone [From Rocephin] AdvReac Swelling & Verified 01/05/24 12:12 Diarrhea Physical Exam Vitals: Vital Signs Temp Pulse Resp BP Pulse Ox 01/05/24 12:32 69 18 208/118 100 01/05/24 12:01 69 18 202/105 99 01/05/24 11:26 64 18 197/98 99 01/05/24 10:57 64 18 190/100 99 01/05/24 09:34 97.9 F 67 18 208/106 98 Intake and Output 01/04/24 01/05/24 01/05/24 22:59 06:59 14:59 Other: Weight 75.75 kg Results CBC & Chem 7: 01/05/24 09:24 01/05/24 09:24 Labs: Abnormal Lab Results - Last 24 Hours (Table) 01/05/24 01/05/24 Range/Units 09:24 09:24 MCHC 30.8 L (31.0-37.0) g/dL RDW 17.3 H (11.5-15.5) % Chloride 109 H (98-107) mmol/L
[2024-01-05] MEDS: CHLORTHALIDONE 25 MG TAB PO SCH (14:20)
[2024-01-05] MEDS: ACETAMINOPHEN TAB 325 MG TAB PO SCH (14:39)
[2024-01-05] MEDS: cloNIDine HCL 0.1 MG TAB PO SCH (15:50)
[2024-01-05] MEDS: carvediloL 12.5 MG TAB PO SCH (17:04)
[2024-01-05] MEDS: MIRTAZAPINE 15 MG TAB PO SCH (21:17)
[2024-01-06 07:08] VITALS: PULSE 64
[2024-01-06] MEDS: hydrALAZINE HCL 50 MG TAB PO PRN (08:09)
[2024-01-06 08:23] LABS: Anisocytosis Slight; Basophils % (A) 1 %; Eosinophils # (A) 0.5 k/uL (0-0.7); Eosinophils % (A) 11 %; HCT 42.2 % (34.0-46.0); HGB 12.9 gm/dL (11.4-16.0); Hypochromasia Moderate; Lymphocytes # (A) 1.3 k/uL (1.0-4.8); Lymphocytes % (A) 29 %; MCH 25.9 pg (25.0-35.0); MCHC 30.5 g/dL (31.0-37.0); MCV 84.7 fL (80.0-100.0); Mean Platelet Volume 8.4; Monocytes # (A) 0.3 k/uL (0-1.0); Monocytes % (A) 6 %; Neutrophils # (A) 2.3 k/uL (1.3-7.7); Neutrophils % (A) 51 %; Platelet Count 242 k/uL (150-450); RBC 4.98 m/uL (3.80-5.40); RDW 17.3 % (11.5-15.5); WBC 4.6 k/uL (3.8-10.6)
[2024-01-06 08:37] LABS: African American GFR (CKD) >90 (>60 ml/min/1.73 sqM); Anion Gap 4 mmol/L; Blood Urea Nitrogen 16 mg/dL (7-17); Carbon Dioxide 26 mmol/L (22-30); Chloride 111 mmol/L (98-107); Glucose 73 mg/dL (74-99); Non-African American GFR(CKD) 80 (>60 ml/min/1.73 sqM); Potassium 4.2 mmol/L (3.5-5.1); Sodium 141 mmol/L (137-145)
[2024-01-06] MEDS: THIAMINE 100 MG TAB PO SCH (08:50)
[2024-01-06] MEDS: SERTRALINE 50 MG TAB PO SCH (08:50)
[2024-01-06] MEDS ORDERED: NON FORMULARY DRUG (Methadone Hcl [Methadone Intensol] 10 MG/ML Ml) PO SCH (09:00)
[2024-01-06] MEDS ORDERED: hydroCHLOROthiazide 25 MG TAB PO SCH (09:00)
[2024-01-06 11:46] VITALS: BP 130/70; RESP 18; TEMP 97.8
--- NOTE | 2024-01-08 23:56 | P.DS ---
Providers Date of admission: 01/05/24 12:29 Attending physician: Breonna Irene Primary care physician: Gustvao López DO Hospital Course: Final Diagnosis Hypertensive urgency or accelerated hypertension due to patient not having all her medications -Hypertension -Heroin use history -Depression for which patient is on SSRIs which will be resumed -patient is in rehab and will be resumed on methadone Discharge Disposition Patient is stable for discharge back to [facility]. Blood pressure has normalized. Medications have been adjusted and sent to the pharmacy. Hospital Course Patient is a pleasant 58-year-old female came in with complaints of hypertension and headache at a computer at this time patient denies any symptoms of shortness of breath blurry vision chest pain abdominal pain. Patient chest x-ray did not show any pulm edema. Patient does have history of IV drug abuse in the past and is on methadone. Patient is presently not having any withdrawals patient has been taking methadone patient takes 1.5 mg of methadone as an outpatient and this was already ordered. Patient always has an acute visit uncontrolled hypertension and patient is an -[place] female patient is on hydrochlorothiazide 25 mg twice a day along with losartan and clonidine. Patient was given multiple medications here. Blood pressure has normalized. Patient is not having any chest pain and denies shortness of breath. Focal neurological exam is negative she is alert x 3. Patient will return to [facility]. Please see medication reconciliation for a list of current medications. Thank you for allowing us to participate in the care of this patient. The impression and plan of care has been dictated by Renita Hunter Nurse Practitioner as directed. Dr. Maria Victoria MD I have performed a history and physical examination and medical decision making of this patient, discussed the same with the dictator, and agree with the dictators assessment and plan as written, documented as a scribe. Based on total visit time, I have performed more than 50% of this visit. Patient Condition at Discharge: Stable Plan - Discharge Summary New Discharge Prescriptions: New hydrALAZINE HCL [Apresoline] 100 mg PO TID PRN #20 tab PRN Reason: Blood Pressure - High cloNIDine HCL [Catapres] 0.3 mg PO TID #180 tab Chlorthalidone [Hygroton] 50 mg PO DAILY #30 tab Continue Thiamine [Vitamin B-1] 100 mg PO DAILY Calcium/Zinc/Mag/D3 1 tab PO TID PRN PRN Reason: CRAMPS Mirtazapine [Remeron] 15 mg PO HS Acetaminophen [Tylenol] 650 mg PO Q4H Multivitamins, Thera [Multivitamin (formulary)] 1 tab PO DAILY Sertraline [Zoloft] 50 mg PO DAILY Methadone HCl [Methadone Intensol] 145 mg PO DAILY Ibuprofen [Motrin Ib] 600 mg PO Q6H PRN PRN Reason: Pain carvediloL [Coreg*] 12.5 mg PO BID-W/MEALS #60 tab Discontinued cloNIDine HCL 0.1 - 0.3 mg PO Q4H PRN PRN Reason: bp over 160/100 hydroCHLOROthiazide [Hydrodiuril] 25 mg PO ONETIME hydroCHLOROthiazide [Hydrodiuril] 25 mg PO DAILY Discharge Medication List Acetaminophen [Tylenol] 650 mg PO Q4H 11/16/23 [History] Calcium/Zinc/Mag/D3 1 tab PO TID PRN 11/16/23 [History] Methadone HCl [Methadone Intensol] 145 mg PO DAILY 11/16/23 [History] Multivitamins, Thera [Multivitamin (formulary)] 1 tab PO DAILY 11/16/23 [History] Sertraline [Zoloft] 50 mg PO DAILY 11/16/23 [History] Thiamine [Vitamin B-1] 100 mg PO DAILY 11/16/23 [History] Ibuprofen [Motrin Ib] 600 mg PO Q6H PRN 01/05/24 [History] Mirtazapine [Remeron] 15 mg PO HS 01/05/24 [History] Chlorthalidone [Hygroton] 50 mg PO DAILY #30 tab 01/06/24 [Rx] carvediloL [Coreg*] 12.5 mg PO BID-W/MEALS #60 tab 01/06/24 [Rx] cloNIDine HCL [Catapres] 0.3 mg PO TID #180 tab 01/06/24 [Rx] hydrALAZINE HCL [Apresoline] 100 mg PO TID PRN #20 tab 01/06/24 [Rx] Follow up Appointment(s)/Referral(s): Gustavo López DO [Primary Care Provider] - 1-2 days Activity/Diet/Wound Care/Special Instructions: Return to [facility] Discharge Disposition: HOME SELF-CARE
== END 2024-01-06 16:29 | disposition home or self-care (01) ==
LOC: EC 09:06 → 1SOBS 12:29 → 3SCARD 16:02
PROVIDERS: ADMIT Internal Medicine; ATTEND Internal Medicine
DX: I16.0 Hypertensive urgency (principal); F32.A Depression, unspecified; F11.91 Opioid use, unspecified, in remission
CPT/HCPCS: 96376; 96361 ×2; 96365; 96367; 96375; 99285; 36415; 93005; 80053; 80048; 83735; 85025 ×2; 81003; 71045; 70450; G0378 ×2; J0360; J1200; J2765; S0109 ×4; J3475; J1885; J1920

== ENCOUNTER 2024-01-12 09:14 | Inpatient (IN) | payer OTHER ==
--- NOTE | 2024-01-12 09:41 | ED ---
General Adult HPI - General Chief complaint: Shortness of Breath Stated complaint: Weakness Time Seen by Provider: 01/12/24 09:20 Source: patient, EMS, RN notes reviewed, old records reviewed Mode of arrival: EMS Limitations: no limitations - History of Present Illness Initial comments: This is a 58-year-old female who presents to the emergency department from [facility] she has been there 10 days. Patient is there for fentanyl abuse. Patient states today she woke up and started having chest pain shortness of breath and nausea. Patient states she also broke out in sweat at 1 time. Patient states she continues to have chest pain. Patient also was complaining of headache. Patient states she did take her blood pressure medicines today. Patient [place] any fever or chills. Patient denies any abdominal pain. Patient denies any dysuria or hematuria. - Related Data Home Medications Medication Instructions Recorded Confirmed Acetaminophen [Tylenol] 650 mg PO Q4H 11/16/23 01/12/24 Calcium/Zinc/Mag/D3 1 tab PO TID PRN 11/16/23 01/12/24 Methadone HCl [Methadone Intensol] 145 mg PO DAILY 11/16/23 01/12/24 Multivitamins, Thera [Multivitamin 1 tab PO DAILY 11/16/23 01/12/24 (formulary)] Sertraline [Zoloft] 50 mg PO DAILY 11/16/23 01/12/24 Thiamine [Vitamin B-1] 100 mg PO DAILY 11/16/23 01/12/24 Ibuprofen [Motrin Ib] 600 mg PO Q6H PRN 01/05/24 01/12/24 Mirtazapine [Remeron] 15 mg PO HS 01/05/24 01/12/24 Losartan [Cozaar] 50 mg PO DAILY 01/12/24 01/12/24 carvediloL [Coreg*] 12.5 mg PO DAILY 01/12/24 01/12/24 cloNIDine HCL [Catapres] 0.1 - 0.3 mg PO Q4H PRN 01/12/24 01/12/24 hydrALAZINE HCL [Apresoline] 100 mg PO TID 01/12/24 01/12/24 ondansetron HCL [Zofran] 8 mg PO Q6H PRN 01/12/24 01/12/24 Allergies Allergy/AdvReac Type Severity Reaction Status Date / Time amlodipine Allergy Rash/Hives Verified 01/12/24 10:10 & Swelling of legs and feet ceftriaxone [From Rocephin] AdvReac Swelling & Verified 01/12/24 10:10 Diarrhea Review of Systems ROS Statement: Those systems with pertinent positive or pertinent negative responses have been documented in the HPI. ROS Other: All systems not noted in ROS Statement are negative. Past Medical History Past Medical History: Hypertension Additional Past Medical History / Comment(s): neuropathy. heroin/fentanyl use last 11/09/23 History of Any Multi-Drug Resistant Organisms: None Reported Past Surgical History: Bladder Surgery Additional Past Surgical History / Comment(s): ulcer Past Anesthesia/Blood Transfusion Reactions: No Reported Reaction Past Psychological History: No Psychological Hx Reported Smoking Status: Current every day smoker Past Alcohol Use History: None Reported Past Drug Use History: Heroin General Exam - General Exam Comments Initial Comments: GENERAL: Patient is well-developed and well-nourished. Patient is nontoxic and well- hydrated and is in mild distress. ENT: Neck is soft and supple. No significant lymphadenopathy is noted. Oropharynx is clear. Moist mucous membranes. Neck has full range of motion without elicit ing any pain. EYES: The sclera were anicteric and conjunctiva were pink and moist. Extraocular m ovements were intact and pupils were equal round and reactive to light. Eyelids were unremarkable. PULMONARY: Unlabored respirations. Good breath sounds bilaterally. No audible rales rhonchi or wheezing was noted. CARDIOVASCULAR: There is a regular rate and rhythm without any murmurs gallops or rubs. ABDOMEN: Soft and nontender with normal bowel sounds. SKIN: Skin is clear with no lesions or rashes and otherwise unremarkable. NEUROLOGIC: Patient is alert and oriented x3. Cranial nerves II through XII are grossly intact. Motor and sensory are also intact. Normal speech, volume and content. Symmetrical smile. MUSCULOSKELETAL: Normal extremities with adequate strength and full range of motion. LYMPHATICS: No significant lymphadenopathy is noted PSYCHIATRIC: Normal psychiatric evaluation. Limitations: no limitations Course Vital Signs 01/12/24 01/12/24 01/12/24 09:17 10:53 11:20 Temperature 98.2 F Pulse Rate 78 78 Respiratory 20 20 17 Rate Blood Pressure 118/72 139/86 O2 Sat by Pulse 100 98 Oximetry Medical Decision Making - Medical Decision Making EKG shows a sinus rhythm at 67 bpm WA interval is 175 QRS is 98 QT interval 390 QTc is 405. Patient's EKG shows no ST segment elevation or depression. Was pt. sent in by a medical professional or institution ([facility] Craven, SERVICE SPRINKLER HELPER, urgent care, hospital, or shelter...) When possible be specific @ -No Did you speak to anyone other than the patient for history (EMS, parent, family, police, friend...)? What history was obtained from this source @ -No Did you review nursing and triage notes (agree or disagree)? Why? @ -I reviewed and agree with nursing and triage notes Were old charts reviewed (outside hosp., previous admission, EMS record, old EKG, old radiological studies, urgent care reports/EKG's, shelter records)? Report findings @ -No old charts were reviewed Differential Diagnosis (chest pain, altered mental status, abdominal pain women, abdominal pain men, vaginal bleeding, weakness, fever, dyspnea, syncope, headache, dizziness, GI bleed, back pain, seizure, CVA, palpatations, mental health, musculoskeletal)? @ -Differential Chest Pain: Stable Angina, Unstable Angina, STEMI, NSTEMI Aortic Dissection, Pneumothorax, Musculoskeletal, Esophageal Spasm GERD, Cholecystitis, Pancreatitis, Zoster, this is not meant to be an all-inclusive list. EKG interpreted by me (3pts min.). @ -As above X-rays interpreted by me (1pt min.). @ -Chest x-ray shows no acute abnormality CT interpreted by me (1pt min.). @ -None done U/S interpreted by me (1pt. min.). @ -None done What testing was considered but not performed or refused? (CT, X-rays, U/S, labs)? Why? @ -None What meds were considered but not given or refused? Why? @ -None Did you discuss the management of the patient with other professionals (professionals i.e. [facility] Craven, SERVICE SPRINKLER HELPER, lab, RT, psych nurse, social worker psychiatric, manufacturing manager, teacher, correctional officer lieutenant, home health care case manager)? Give summary @ -I spoke with sound physicians agreed to admit the patient admit the patient right admitting orders Was smoking cessation discussed for >3mins.? @ -No Was critical care preformed (if so, how long)? @ -No Were there social determinants of health that impacted care today? How? (Homelessness, low income, unemployed, alcoholism, drug addiction, transportation, low edu. Level, literacy, decrease access to med. care, long term, rehab)? @ -No Was there de-escalation of care discussed even if they declined (Discuss DNR or withdrawal of care, Hospice)? DNR status @ -No What co-morbidities impacted this encounter? (DM, HTN, Smoking, COPD, CAD, Cancer, CVA, ARF, Chemo, Hep., AIDS, mental health diagnosis, sleep apnea, morbid obesity)? @ -None Was patient admitted / discharged? Hospital course, mention meds given and route, prescriptions, significant lab abnormalities, going to OR and other pertinent info. @ -Patient's blood work showed no acute abnormality. Patient was given aspirin Nitropaste in the emergency department. Patient was feeling better after she received nitro. Patient will be admitted to [facility] physicians and cardiology will be counseled Undiagnosed new problem with uncertain prognosis? @ -No Drug Therapy requiring intensive monitoring for toxicity (Heparin, Nitro, Insulin, Cardizem)? @ -No Were any procedures done? @ -No Diagnosis/symptom? @ -Chest pain Acute, or Chronic, or Acute on Chronic? @ -Acute Uncomplicated (without systemic symptoms) or Complicated (systemic symptoms)? @ -Complicated Side effects of treatment? @ -No Exacerbation, Progression, or Severe Exacerbation? @ -No Poses a threat to life or bodily function? How? (Chest pain, USA, SD, pneumonia, PE, COPD, DKA, ARF, appy, cholecystitis, CVA, Diverticulitis, Homicidal, Suicidal, threat to staff... and all critical care pts) @ -Yes this could lead to an SD and endorgan dysfunction Diagnosis/symptom? @ -Opiate abuse Acute, or Chronic, or Acute on Chronic? @ -Acute Uncomplicated (without systemic symptoms) or Complicated (systemic symptoms)? @ -Complicated Side effects of treatment? @ -None Exacerbation, Progression, or Severe Exacerbation] @ -No Poses a threat to life or bodily function? @ -No - Lab Data Result diagrams: 01/12/24 09:37 01/12/24 09:37 Lab Results 01/12/24 01/12/24 01/12/24 Range/Units 09:37 09:37 09:37 WBC 7.5 (3.8-10.6) k/uL RBC 5.29 (3.80-5.40) m/uL Hgb 13.6 (11.4-16.0) gm/dL Hct 44.7 (34.0-46.0) % MCV 84.4 (80.0-100.0) fL MCH 25.7 (25.0-35.0) pg MCHC 30.5 L (31.0-37.0) g/dL RDW 17.4 H (11.5-15.5) % Plt Count 313 (150-450) k/uL MPV 9.1 Neutrophils % 77 % Lymphocytes % 13 % Monocytes % 4 % Eosinophils % 3 % Basophils % 1 % Neutrophils # 5.8 (1.3-7.7) k/uL Lymphocytes # 1.0 (1.0-4.8) k/uL Monocytes # 0.3 (0-1.0) k/uL Eosinophils # 0.2 (0-0.7) k/uL Basophils # 0.0 (0-0.2) k/uL Hypochromasia Marked Anisocytosis Slight PT (10.0-12.5) sec INR (<1.2) APTT (22.0-30.0) sec Sodium 141 (137-145) mmol/L Potassium 4.3 (3.5-5.1) mmol/L Chloride 107 (98-107) mmol/L Carbon Dioxide 28 (22-30) mmol/L Anion Gap 6 mmol/L BUN 21 H (7-17) mg/dL Creatinine 1.15 H (0.52-1.04) mg/dL Est GFR (CKD-EPI)AfAm 60 (>60 ml/min/1.73 sqM) Est GFR (CKD-EPI)NonAf 52 (>60 ml/min/1.73 sqM) Glucose 123 H (74-99) mg/dL Calcium 9.3 (8.4-10.2) mg/dL Magnesium 2.4 H (1.6-2.3) mg/dL Total Bilirubin 0.4 (0.2-1.3) mg/dL AST 25 (14-36) U/L ALT 17 (4-34) U/L Alkaline Phosphatase 84 (38-126) U/L Troponin I <0.012 (0.000-0.034) ng/mL Total Protein 7.5 (6.3-8.2) g/dL Albumin 4.3 (3.5-5.0) g/dL 01/12/24 Range/Units 11:20 WBC (3.8-10.6) k/uL RBC (3.80-5.40) m/uL Hgb (11.4-16.0) gm/dL Hct (34.0-46.0) % MCV (80.0-100.0) fL MCH (25.0-35.0) pg MCHC (31.0-37.0) g/dL RDW (11.5-15.5) % Plt Count (150-450) k/uL MPV Neutrophils % % Lymphocytes % % Monocytes % % Eosinophils % % Basophils % % Neutrophils # (1.3-7.7) k/uL Lymphocytes # (1.0-4.8) k/uL Monocytes # (0-1.0) k/uL Eosinophils # (0-0.7) k/uL Basophils # (0-0.2) k/uL Hypochromasia Anisocytosis PT 10.6 (10.0-12.5) sec INR 1.0 (<1.2) APTT 25.5 (22.0-30.0) sec Sodium (137-145) mmol/L Potassium (3.5-5.1) mmol/L Chloride (98-107) mmol/L Carbon Dioxide (22-30) mmol/L Anion Gap mmol/L BUN (7-17) mg/dL Creatinine (0.52-1.04) mg/dL Est GFR (CKD-EPI)AfAm (>60 ml/min/1.73 sqM) Est GFR (CKD-EPI)NonAf (>60 ml/min/1.73 sqM) Glucose (74-99) mg/dL Calcium (8.4-10.2) mg/dL Magnesium (1.6-2.3) mg/dL Total Bilirubin (0.2-1.3) mg/dL AST (14-36) U/L ALT (4-34) U/L Alkaline Phosphatase (38-126) U/L Troponin I (0.000-0.034) ng/mL Total Protein (6.3-8.2) g/dL Albumin (3.5-5.0) g/dL Disposition Clinical Impression: Chest pain, Opioid abuse Disposition: ADMITTED IP TO THIS HOSP Referrals: Gustavo López DO [Primary Care Provider] - 1-2 days Time of Disposition: 12:49
[2024-01-12] MEDS: ONDANSETRON 4 MG/2 ML VIAL IVP STA (09:53)
[2024-01-12] MEDS: NITROGLYCERIN OINT 1 INCH/GM PACKET TOPICAL STA (09:54)
[2024-01-12] MEDS: ASPIRIN 81 MG PO STA (09:54)
[2024-01-12 10:04] LABS: Anisocytosis Slight; Basophils % (A) 1 %; Eosinophils # (A) 0.2 k/uL (0-0.7); Eosinophils % (A) 3 %; HCT 44.7 % (34.0-46.0); HGB 13.6 gm/dL (11.4-16.0); Hypochromasia Marked; Lymphocytes % (A) 13 %; MCH 25.7 pg (25.0-35.0); MCHC 30.5 g/dL (31.0-37.0); MCV 84.4 fL (80.0-100.0); Mean Platelet Volume 9.1; Monocytes # (A) 0.3 k/uL (0-1.0); Monocytes % (A) 4 %; Neutrophils # (A) 5.8 k/uL (1.3-7.7); Neutrophils % (A) 77 %; Platelet Count 313 k/uL (150-450); RBC 5.29 m/uL (3.80-5.40); RDW 17.4 % (11.5-15.5); WBC 7.5 k/uL (3.8-10.6)
--- NOTE | 2024-01-12 10:18 | XR ---
EXAMINATION TYPE: XR chest 2V DATE OF EXAM: 01/12/2024 COMPARISON: 01/05/2024 HISTORY: Shortness of breath TECHNIQUE: Frontal and lateral views of the chest are obtained. FINDINGS: Scattered senescent parenchymal changes noted. No evidence for infiltrate. No evidence for atelectasis. Heart size is stable. Mediastinal structures are stable and grossly unremarkable. No evidence for hilar prominence. Degenerative changes dorsal spine. IMPRESSION: 1. No evidence for acute pulmonary disease.
[2024-01-12 10:21] LABS: ALT 17 U/L (4-34); AST 25 U/L (14-36); African American GFR (CKD) 60 (>60 ml/min/1.73 sqM); Albumin 4.3 g/dL (3.5-5.0); Alkaline Phosphatase 84 U/L (38-126); Anion Gap 6 mmol/L; Blood Urea Nitrogen 21 mg/dL (7-17); Calcium 9.3 mg/dL (8.4-10.2); Carbon Dioxide 28 mmol/L (22-30); Chloride 107 mmol/L (98-107); Glucose 123 mg/dL (74-99); Magnesium 2.4 mg/dL (1.6-2.3); Non-African American GFR(CKD) 52 (>60 ml/min/1.73 sqM); Potassium 4.3 mmol/L (3.5-5.1); Sodium 141 mmol/L (137-145); Total Bilirubin 0.4 mg/dL (0.2-1.3); Total Protein 7.5 g/dL (6.3-8.2)
[2024-01-12] MEDS: ACETAMINOPHEN TAB 500 MG TAB PO STA (11:44)
[2024-01-12 11:55] LABS: Partial Thromboplastin Time 25.5 sec (22.0-30.0); Prothrombin Time 10.6 sec (10.0-12.5)
[2024-01-12] MEDS ORDERED: NITROGLYCERIN SL TABS 0.4 MG TAB SUBLINGUAL PRN (12:49)
[2024-01-12] MEDS ORDERED: ONDANSETRON 4 MG TAB PO PRN (12:50)
--- NOTE | 2024-01-12 15:04 | P.HPIM ---
History of Present Illness H&P Date: 01/12/24 58 year old M with PMH of HTN, currently at [facility] over the past 10 days, h/o fentanyl use presents to the ED. Patient reports waking up this morning with a pounding headache. Her BP was noted to be high in the 190s/100s. She was given some medication for her blood pressure, soon after started to experience chest pain. Described as pressure like in nature, left sided, non radiating, associat ed with nausea and diaphoresis. This prompted her to come to the ED. In the ED she underwent extensive evaluation. BP 118/72, HR 78, T 98.2F, RR 20, 100% on RA. CBC, Coag panel, CMP performed significant for MCHC 30.5, RDW 17.4, BUN 21, Cr 1.15, glu 123. Mag 2.4. Mag 2.4. Troponin < 0.012 x 2, EKG showing sinus rhythm. CXR negative. Patient is admitted for cardiology evaluation of chest pain, rule out ACS. General: anxious, SOB, appears at stated age Derm: warm, dry Head: atraumatic, normocephalic, symmetric Eyes: EOMI, no lid lag, anicteric sclera Mouth: no lip lesion, mucus membranes moist Cardiovascular: S1S2 reg, no murmur Lungs: Decreased BS bilateral, no rhonchi, no rales , no accessory muscle use Abdominal: soft, nontender to palpation, no guarding, no appreciable organomegaly Ext: no gross muscle atrophy, no edema, no contractures Neuro: generalized tremors with no focal neuro deficits Psych: Anxious Based on my assessment of this patient, this patient meets a high complexity level of care. Chest pain: Trend Trop/EKG to rule out ACS. ASA 81 mg PO QD. Recent Echo shows normal EF. Telemetry monitoring. Cardiology consult. Acute kidney injury: Gentle IV hydration with NS at 75 cc/hr. Headache: Possibly related to fluctuation in BP. Migraine cocktail has worked in the past. Toradol 15 mg IV Q6H PRN. Hypertension: Coreg 12.5 mg PO BID. Hydralazine 100 mg PO TID. Losartan 50 mg PO QD. h/o opiate abuse: Methadone 140 mg PO QD. CODE STATUS: FULL CODE DVT Prophylaxis: Lovenox GI Prophylaxis: Designated medical POA if patient is not able to make medical decisions for themselves: I have reviewed the following databases software consultant notes: ED note. I have reviewed the results of the following tests: As above. I have ordered the following tests: As above. I have discussed the care of this patient with the following independent historian: SHEFALI. I have independently interpreted the following test below: EKG. I have discussed the management of this patient with the following physician: Past Medical History Past Medical History: Hypertension Additional Past Medical History / Comment(s): neuropathy. heroin/fentanyl use last 11/09/23 History of Any Multi-Drug Resistant Organisms: None Reported Past Surgical History: Bladder Surgery Additional Past Surgical History / Comment(s): ulcer Past Anesthesia/Blood Transfusion Reactions: No Reported Reaction Past Psychological History: No Psychological Hx Reported Smoking Status: Current every day smoker Past Alcohol Use History: None Reported Past Drug Use History: Heroin Medications and Allergies Home Medications Medication Instructions Recorded Confirmed Type Acetaminophen [Tylenol] 650 mg PO Q4H 11/16/23 01/12/24 History Calcium/Zinc/Mag/D3 1 tab PO TID PRN 11/16/23 01/12/24 History Methadone HCl [Methadone Intensol] 145 mg PO DAILY 11/16/23 01/12/24 History Multivitamins, Thera [Multivitamin 1 tab PO DAILY 11/16/23 01/12/24 History (formulary)] Sertraline [Zoloft] 50 mg PO DAILY 11/16/23 01/12/24 History Thiamine [Vitamin B-1] 100 mg PO DAILY 11/16/23 01/12/24 History Ibuprofen [Motrin Ib] 600 mg PO Q6H PRN 01/05/24 01/12/24 History Mirtazapine [Remeron] 15 mg PO HS 01/05/24 01/12/24 History Losartan [Cozaar] 50 mg PO DAILY 01/12/24 01/12/24 History carvediloL [Coreg*] 12.5 mg PO DAILY 01/12/24 01/12/24 History cloNIDine HCL [Catapres] 0.1 - 0.3 mg PO Q4H PRN 01/12/24 01/12/24 History hydrALAZINE HCL [Apresoline] 100 mg PO TID 01/12/24 01/12/24 History ondansetron HCL [Zofran] 8 mg PO Q6H PRN 01/12/24 01/12/24 History Allergies Allergy/AdvReac Type Severity Reaction Status Date / Time amlodipine Allergy Rash/Hives Verified 01/12/24 10:10 & Swelling of legs and feet ceftriaxone [From Rocephin] AdvReac Swelling & Verified 01/12/24 10:10 Diarrhea Physical Exam Vitals: Vital Signs Temp Pulse Resp BP Pulse Ox 01/12/24 11:20 78 17 139/86 98 01/12/24 10:53 20 01/12/24 09:17 98.2 F 78 20 118/72 100 Intake and Output 01/11/24 01/12/24 01/12/24 22:59 06:59 14:59 Other: Weight 75.75 kg Results CBC & Chem 7: 01/12/24 09:37 01/12/24 09:37 Labs: Abnormal Lab Results - Last 24 Hours (Table) 01/12/24 01/12/24 Range/Units 09:37 09:37 MCHC 30.5 L (31.0-37.0) g/dL RDW 17.4 H (11.5-15.5) % BUN 21 H (7-17) mg/dL Creatinine 1.15 H (0.52-1.04) mg/dL Glucose 123 H (74-99) mg/dL Magnesium 2.4 H (1.6-2.3) mg/dL
[2024-01-12] MEDS: KETOROLAC 15 MG/ML 1 ML VIAL IVP STA (15:50)
[2024-01-12] MEDS: SODIUM CHLORIDE 0.9% 1,000 ML IV SCH (15:50)
[2024-01-12] MEDS: hydrALAZINE HCL 50 MG TAB PO SCH (16:20)
[2024-01-12] MEDS ORDERED: NITROGLYCERIN OINT 1 INCH/GM PACKET TOPICAL SCH (18:00)
[2024-01-12] MEDS: ASPIRIN-ACET-CAFF 250-250-65MG 1 EACH TAB PO PRN (20:23)
[2024-01-12] MEDS: MIRTAZAPINE 15 MG TAB PO SCH (21:30)
[2024-01-12] MEDS: cloNIDine HCL 0.1 MG TAB PO PRN (21:32)
[2024-01-13] MEDS: ACETAMINOPHEN TAB 325 MG TAB PO PRN (06:56)
[2024-01-13] MEDS: ASPIRIN 81 MG PO SCH (08:47)
[2024-01-13] MEDS: ENOXAPARIN 40 MG/0.4 ML SYRINGE SQ SCH (08:47)
[2024-01-13] MEDS: SERTRALINE 50 MG TAB PO SCH (08:47)
[2024-01-13] MEDS: carvediloL 12.5 MG TAB PO SCH (08:48)
[2024-01-13] MEDS: LOSARTAN 50 MG TAB PO SCH (08:48)
[2024-01-13] MEDS ORDERED: ASPIRIN 325 MG TAB PO SCH (09:00)
[2024-01-13] MEDS: METHADONE 10 MG TAB PO SCH (09:02)
[2024-01-13] MEDS: METHADONE 5 MG TAB PO SCH (09:13)
[2024-01-13 11:13] LABS: Chol/HDL Ratio 3.75 Ratio; LDL Cholesterol,Calculated 121.1 mg/dL (0.0-131.0); VLDL Calculation 18.32 mg/dL (5.00-40.00)
--- NOTE | 2024-01-13 11:13 | P.CRDCN ---
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 Has a history of hypertension. She has a history of drug abuse with prior prescription pain pills subsequent heroin abuse and more recently fentanyl abuse is currently at [facility] for rehab. She has been having issues with hypertension. Yesterday she became weak, sweaty, nauseous with a headache. Blood pressure has been elevated since admission. She has some chest heaviness. At the time my examination blood pressure was 180/100. She is currently on carvedilol 12.5 mg p.o. twice daily, losartan 50 mg p.o. daily and hydralazine 100 mg p.o. 3 times daily. She did have an echocardiogram done in October of this year that showed normal LV systolic function with mild MR. Troponins have been negative x 3 and EKG showed sinus mechanism with nonspecific ST-T wave abnormalities but no evidence of ischemia. She is a current every day smoker about 3 cigarettes/day. She is not very active at home. She has been in [facility] for about 12 days. Time my examination her main complaint is headache. She denies any palpitations or dizziness. She continues to have some chest heaviness but this has improved some. She denies any dyspnea on exertion, orthopnea or PND. Past Medical History Past Medical History: Hypertension Additional Past Medical History / Comment(s): neuropathy. heroin/fentanyl use last 11/09/23 History of Any Multi-Drug Resistant Organisms: None Reported Past Surgical History: Bladder Surgery Additional Past Surgical History / Comment(s): ulcer Past Anesthesia/Blood Transfusion Reactions: No Reported Reaction Past Psychological History: No Psychological Hx Reported Smoking Status: Current every day smoker Past Alcohol Use History: None Reported Past Drug Use History: Heroin Medications and Allergies Home Medications Medication Instructions Recorded Confirmed Type Acetaminophen [Tylenol] 650 mg PO Q4H 11/16/23 01/12/24 History Calcium/Zinc/Mag/D3 1 tab PO TID PRN 11/16/23 01/12/24 History Methadone HCl [Methadone Intensol] 145 mg PO DAILY 11/16/23 01/12/24 History Multivitamins, Thera [Multivitamin 1 tab PO DAILY 11/16/23 01/12/24 History (formulary)] Sertraline [Zoloft] 50 mg PO DAILY 11/16/23 01/12/24 History Thiamine [Vitamin B-1] 100 mg PO DAILY 11/16/23 01/12/24 History Ibuprofen [Motrin Ib] 600 mg PO Q6H PRN 01/05/24 01/12/24 History Mirtazapine [Remeron] 15 mg PO HS 01/05/24 01/12/24 History Losartan [Cozaar] 50 mg PO DAILY 01/12/24 01/12/24 History carvediloL [Coreg*] 12.5 mg PO DAILY 01/12/24 01/12/24 History cloNIDine HCL [Catapres] 0.1 - 0.3 mg PO Q4H PRN 01/12/24 01/12/24 History hydrALAZINE HCL [Apresoline] 100 mg PO TID 01/12/24 01/12/24 History ondansetron HCL [Zofran] 8 mg PO Q6H PRN 01/12/24 01/12/24 History Allergies Allergy/AdvReac Type Severity Reaction Status Date / Time amlodipine Allergy Rash/Hives Verified 01/12/24 10:10 & Swelling of legs and feet ceftriaxone [From Rocephin] AdvReac Swelling & Verified 01/12/24 10:10 Diarrhea Physical Exam Vitals: Vital Signs Temp Pulse Resp BP Pulse Ox 01/13/24 08:00 84 16 159/96 97 01/13/24 07:00 84 16 173/101 97 01/13/24 05:51 88 18 163/93 96 01/13/24 02:27 85 16 139/80 95 01/12/24 21:35 98.0 F 85 18 158/97 97 01/12/24 20:28 84 16 161/86 98 01/12/24 17:57 80 18 151/78 97 01/12/24 15:00 98.3 F 72 16 130/82 97 01/12/24 11:20 78 17 139/86 98 PHYSICAL EXAMINATION: This is a 58-year-old female in no apparent distress at the time of my examination. VITAL SIGNS: Reviewed. HEENT: Head is atraumatic, normocephalic. Pupils are equal, round. Sclerae anicteric. Conjunctivae are clear. Mucous membranes of the mouth are moist. Neck is supple. There is no elevated jugular venous pressure. No carotid bruit is heard. CHEST EXAMINATION: Clear to auscultation bilaterally. No wheezes rales or rhonchi. Respirations even and nonlabored. HEART EXAMINATION: Heart regular, positive S1 and S2. No S3. No S4. Soft systolic murmur. ABDOMEN: Soft, nontender. Bowel sounds are heard. No organomegaly noted. EXTREMITIES: 2+ peripheral pulses with no evidence of peripheral edema and no calf tenderness noted. NEUROLOGIC EXAMINATION: Patient is awake, alert and oriented x3. Results 01/12/24 09:37 01/12/24 09:37 Cardiac Enzymes 01/12/24 01/12/24 Range/Units 13:10 16:37 Troponin I <0.012 <0.012 (0.000-0.034) ng/mL Coagulation 01/12/24 Range/Units 11:20 PT 10.6 (10.0-12.5) sec APTT 25.5 (22.0-30.0) sec Current Medications Generic Name Dose Route Start Last Admin Trade Name Freq PRN Reason Stop Dose Admin Acetaminophen 650 mg 01/12/24 14:31 01/13/24 06:56 Acetaminophen Tab 325 Mg Tab PO 650 mg Q4H PRN Administration Pain Acetaminophen/Aspirin/Caffeine 2 each 01/12/24 19:57 01/13/24 08:48 [id number] 1 Each Tab PO 2 each Q6HR PRN Administration Headache Aspirin 81 mg 01/13/24 09:00 01/13/24 08:47 Aspirin 81 Mg PO 81 mg DAILY RAJESH Administration Carvedilol 12.5 mg 01/13/24 09:00 01/13/24 08:48 Carvedilol 12.5 Mg Tab PO 12.5 mg DAILY RAJESH Administration Enoxaparin Sodium 40 mg 01/13/24 09:00 01/13/24 08:47 Enoxaparin 40 Mg/0.4 Ml Syringe SQ 40 mg DAILY RAJESH Administration Hydralazine HCl 100 mg 01/12/24 16:00 01/13/24 08:49 Hydralazine Hcl 50 Mg Tab PO 100 mg TID RAJESH Administration Hydrochlorothiazide 25 mg 01/13/24 11:15 Hydrochlorothiazide 25 Mg Tab PO DAILY RAJESH Sodium Chloride 1,000 mls @ 50 mls/hr 01/12/24 15:15 01/13/24 09:16 Saline 0.9% IV 50 mls/hr .Q20H RAJESH Administration Losartan Potassium 100 mg 01/14/24 09:00 Losartan 50 Mg Tab PO DAILY RAJESH Methadone HCl 140 mg 01/13/24 09:00 01/13/24 09:02 Methadone 10 Mg Tab PO 140 mg DAILY RAJESH Administration Methadone HCl 5 mg 01/13/24 09:00 01/13/24 09:13 Methadone 5 Mg Tab PO 5 mg DAILY RAJESH Administration Mirtazapine 15 mg 01/12/24 21:00 01/12/24 21:30 Mirtazapine 15 Mg Tab PO 15 mg HS RAJESH Administration Nitroglycerin 0.4 mg 01/12/24 12:49 Nitroglycerin Sl Tabs 0.4 Mg Tab SUBLINGUAL Q5M PRN Chest Pain Ondansetron HCl 8 mg 01/12/24 12:50 Ondansetron 4 Mg Tab PO Q6H PRN Nausea Sertraline HCl 50 mg 01/13/24 09:00 01/13/24 08:47 Sertraline 50 Mg Tab PO 50 mg DAILY RAJESH Administration 01/12/24 09:37 01/12/24 09:37 Assessment and Plan Assessment: #1 chest heaviness, acute coronary event has been ruled out #2 hypertension, uncontrolled #3 Fentanyl abuse, currently at [facility] for rehab #4 nicotine dependence Plan: From cardiology's perspective medications were reviewed we will increase losartan to 100 mg daily. Will add hydrochlorothiazide 25 mg p.o. daily. From our standpoint once blood pressure is better controlled patient will be discharged and follow-up as an outpatient. NURSERY TEACHER note has been reviewed, I agree with a documented findings and plan of care. Patient was seen and examined.
[2024-01-13] MEDS: KETOROLAC 15 MG/ML 1 ML VIAL IVP STA (12:49)
[2024-01-13] MEDS: hydroCHLOROthiazide 25 MG TAB PO SCH (12:49)
[2024-01-13] MEDS: diphenhydrAMINE 50 MG/ML 1 ML VIAL IVP STA (12:49)
--- NOTE | 2024-01-13 13:16 | P.PN ---
Subjective Progress Note Date: 01/13/24 58 year old M with PMH of HTN, currently at [facility] over the past 10 days, h/o fentanyl use presents to the ED. Patient reports waking up this morning with a pounding headache. Her BP was noted to be high in the 190s/100s. She was given some medication for her blood pressure, soon after started to experience chest pain. Described as pressure like in nature, left sided, non radiating, associated with nausea and diaphoresis. This prompted her to come to the ED. In the ED she underwent extensive evaluation. BP 118/72, HR 78, T 98.2F, RR 20, 100% on RA. CBC, Coag panel, CMP performed significant for MCHC 30.5, RDW 17.4, BUN 21, Cr 1.15, glu 123. Mag 2.4. Mag 2.4. Troponin < 0.012 x 2, EKG showing sinus rhythm. CXR negative. Patient is admitted for cardiology evaluation of chest pain, rule out ACS. 01/12 Patient was seen and examined. She reports a throbbing headache with minimal improved from Toradol and Excedrin. She reports chest heaviness unchanged from admission. SBP ranging from 118-173 DBP ranging from 72-101 since her hospitalization. D-Dimer 0.5. Troponin < 0.012 x 2. Cardiology consulted, recommends better control of BP, HCTZ started and Losartan increased. General: no distress, appears at stated age Derm: warm, dry Head: atraumatic, normocephalic, symmetric Eyes: EOMI, no lid lag, anicteric sclera Mouth: no lip lesion, mucus membranes moist Cardiovascular: S1S2 reg, no murmur Lungs: Decreased BS bilateral, no rhonchi, no rales , no accessory muscle use Ext: no gross muscle atrophy, no edema, no contractures Neuro: no focal neuro deficits Psych: Alert and oriented Based on my assessment of this patient, this patient meets a high complexity level of care. Chest pain: ACS ruled out. ASA 81 mg PO QD. Recent Echo shows normal EF. Telemetry monitoring. Cardiology on board. Acute kidney injury: Gentle IV hydration with NS at 75 cc/hr. Headache: Likely related to Nitropaste which will be discontinued. Toradol 15 mg IV and Benadryl 25 mg IV ordered. Hypertension: Coreg 12.5 mg PO BID. Hydralazine 100 mg PO TID. Losartan increased from 50 to 100 mg PO QD. HCTZ 25 mg PO QD added. h/o opiate abuse: Methadone 140 mg PO QD. Cardiology recommends discharge home with outpatient follow up once BP better controlled. CODE STATUS: FULL CODE DVT Prophylaxis: Lovenox GI Prophylaxis: Designated medical POA if patient is not able to make medical decisions for themselves: I have reviewed the following aerodynamic consultant notes: Cardiology note. I have reviewed the results of the following tests: Troponin x 2, D-Dimer. I have ordered the following tests: I have discussed the care of this patient with the following independent historian: SHEFALI. I have independently interpreted the following test below: I have discussed the management of this patient with the following physician: Objective - Vital Signs Vital signs: Vital Signs Temp 98.0 F 01/12/24 21:35 Pulse 84 01/13/24 08:00 Resp 16 01/13/24 08:00 BP 159/96 01/13/24 08:00 Pulse Ox 97 01/13/24 08:00 FiO2 Intake & Output 01/12/24 01/13/24 01/13/24 18:59 06:59 18:59 Weight 75.75 kg - Labs CBC & Chem 7: 01/12/24 09:37 01/12/24 09:37
[2024-01-14 05:21] LABS: African American GFR (CKD) 88 (>60 ml/min/1.73 sqM); Anion Gap 8 mmol/L; Blood Urea Nitrogen 16 mg/dL (7-17); Calcium 9.6 mg/dL (8.4-10.2); Carbon Dioxide 26 mmol/L (22-30); Chloride 106 mmol/L (98-107); Glucose 115 mg/dL (74-99); Non-African American GFR(CKD) 76 (>60 ml/min/1.73 sqM); Potassium 3.9 mmol/L (3.5-5.1); Sodium 140 mmol/L (137-145)
[2024-01-14] MEDS: LOSARTAN 50 MG TAB PO SCH (08:44)
[2024-01-14] MEDS: carvediloL 12.5 MG TAB PO SCH (08:51)
[2024-01-14] MEDS: cloNIDine HCL 0.1 MG TAB PO SCH (10:18)
[2024-01-14] MEDS: hydrALAZINE HCL 25 MG TAB PO SCH (10:18)
--- NOTE | 2024-01-14 10:44 | P.PN ---
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 Has a history of hypertension. She has a history of drug abuse with prior prescription pain pills subsequent heroin abuse and more recently fentanyl abuse is currently at [facility] for rehab. She has been having issues with hypertension. Yesterday she became weak, sweaty, nauseous with a headache. Blood pressure has been elevated since admission. She has some chest heaviness. At the time my examination blood pressure was 180/100. She is currently on carvedilol 12.5 mg p.o. twice daily, losartan 50 mg p.o. daily and hydralazine 100 mg p.o. 3 times daily. She did have an echocardiogram done in October of this year that showed normal LV systolic function with mild MR. Troponins have been negative x 3 and EKG showed sinus mechanism with nonspecific ST-T wave abnormalities but no evidence of ischemia. She is a current every day smoker about 3 cigarettes/day. She is not very active at home. She has been in [facility] for about 12 days. Time my examination her main complaint is headache. She denies any palpitations or dizziness. She continues to have some chest heaviness but this has improved some. She denies any dyspnea on exertion, orthopnea or PND. 01/14/2024 Patient was seen and examined resting comfortably in bed. She continues to complain of a headache. Her chest is feeling better this morning. She is had no shortness of breath or dizziness. Blood pressure remains elevated. Objective - Vital Signs Vital signs: Vital Signs Temp 98.6 F 01/14/24 07:09 Pulse 99 01/14/24 07:09 Resp 16 01/14/24 07:09 BP 179/93 01/14/24 07:09 Pulse Ox 99 01/14/24 07:09 FiO2 Intake & Output 01/13/24 01/14/24 01/14/24 18:59 06:59 18:59 Weight 75.75 kg Other: # Voids 1 - Exam VITAL SIGNS: Reviewed. HEENT: Head is atraumatic, normocephalic. Pupils are equal, round. Sclerae anicteric. Conjunctivae are clear. Mucous membranes of the mouth are moist. Neck is supple. There is no elevated jugular venous pressure. No carotid bruit is heard. CHEST EXAMINATION: Clear to auscultation bilaterally. No wheezes rales or rhonchi. Respirations even and nonlabored. HEART EXAMINATION: Heart regular, positive S1 and S2. No S3. No S4. Soft systolic murmur. ABDOMEN: Soft, nontender. Bowel sounds are heard. No organomegaly noted. EXTREMITIES: 2+ peripheral pulses with no evidence of peripheral edema and no calf tenderness noted. NEUROLOGIC EXAMINATION: Patient is awake, alert and oriented x3. - Labs CBC & Chem 7: 01/12/24 09:37 01/14/24 04:38 Labs: Abnormal Lab Results - Last 24 Hours (Table) 01/14/24 Range/Units 04:38 Glucose 115 H (74-99) mg/dL Assessment and Plan Assessment: #1 chest heaviness, acute coronary event has been ruled out #2 hypertension, uncontrolled #3 Fentanyl abuse, currently at [facility] for rehab #4 nicotine dependence Plan: This time we will add amlodipine 5 mg p.o. daily. Continue to trend the blood pressure. Further recommendations to follow. NC MACHINIST note has been reviewed, I agree with a documented findings and plan of care. Patient was seen and examined.
[2024-01-14] MEDS: hydrALAZINE HCL 50 MG TAB PO SCH (13:42)
--- NOTE | 2024-01-14 16:00 | P.PN ---
Subjective Progress Note Date: 01/14/24 Principal diagnosis: chest pain Ms. Fuchs was seen and examined. States she has had headaches since clonidine was discontinued. She is asking for resumption of her clonidine. Blood pressure was elevated earlier but now has dropped. Objective - Vital Signs Vital signs: Vital Signs Temp 98.8 F 01/14/24 13:21 Pulse 73 01/14/24 13:21 Resp 16 01/14/24 13:21 BP 92/49 01/14/24 13:21 Pulse Ox 97 01/14/24 13:21 FiO2 Intake & Output 01/13/24 01/14/24 01/14/24 18:59 06:59 18:59 Intake Total 222 Balance 222 Weight 75.75 kg Intake: Oral 222 Other: # Voids 1 2 - Exam Vitals: Reviewed General: No acute distress Cardiovascular: RRR, S1-S2 Lungs: Breath sounds equal and clear to auscultation bilaterally. No wheezing, rhonchi or rales Extremities: No lower extremity edema - Labs CBC & Chem 7: 01/12/24 09:37 01/14/24 04:38 Labs: Abnormal Lab Results - Last 24 Hours (Table) 01/14/24 Range/Units 04:38 Glucose 115 H (74-99) mg/dL Assessment and Plan Plan: # Chest pain ACS rule out. EKG nonischemic. Troponins negative. # Hypertension On hydrochlorothiazide, losartan and Coreg.Catapres 0.1 mg was added as it appears she is going through clonidine withdrawal. Hydralazine suspended as blood pressure significantly dropped. We will use hydralazine as needed. # Opioid dependence On methadone 140 mg daily # Depression Continue Zoloft VTE prophylaxis with Lovenox
[2024-01-14] MEDS ORDERED: hydrALAZINE HCL 50 MG TAB PO PRN (16:01)
[2024-01-14] MEDS ORDERED: CALCIUM CARBONATE 500 MG CHEWABLE PO PRN (17:20)
[2024-01-14] MEDS: SODIUM CHLORIDE 0.9% 500 ML 500 ML IV ONE (17:38)
[2024-01-14] MEDS: FAMOTIDINE 20 MG TAB PO SCH (19:58)
[2024-01-14] MEDS: cloNIDine HCL 0.1 MG TAB PO STA (20:27)
[2024-01-15] MEDS ORDERED: carvediloL 12.5 MG TAB PO SCH (09:00)
[2024-01-15] MEDS: carvediloL 6.25 MG TAB PO SCH (09:19)
[2024-01-15 12:05] LABS: Glucose,Whole Blood 114 mg/dL (70-110)
[2024-01-15] MEDS: hydrALAZINE HCL 25 MG TAB PO SCH (13:30)
--- NOTE | 2024-01-15 14:05 | P.PN ---
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 Has a history of hypertension. She has a history of drug abuse with prior prescription pain pills subsequent heroin abuse and more recently fentanyl abuse is currently at [facility] for rehab. She has been having issues with hypertension. Yesterday she became weak, sweaty, nauseous with a headache. Blood pressure has been elevated since admission. She has some chest heaviness. At the time my examination blood pressure was 180/100. She is currently on carvedilol 12.5 mg p.o. twice daily, losartan 50 mg p.o. daily and hydralazine 100 mg p.o. 3 times daily. She did have an echocardiogram done in October of this year that showed normal LV systolic function with mild MR. Troponins have been negative x 3 and EKG showed sinus mechanism with nonspecific ST-T wave abnormalities but no evidence of ischemia. She is a current every day smoker about 3 cigarettes/day. She is not very active at home. She has been in [facility] for about 12 days. Time my examination her main complaint is headache. She denies any palpitations or dizziness. She continues to have some chest heaviness but this has improved some. She denies any dyspnea on exertion, orthopnea or PND. 01/14/2024 Patient was seen and examined resting comfortably in bed. She continues to complain of a headache. Her chest is feeling better this morning. She is had no shortness of breath or dizziness. Blood pressure remains elevated. 01/14 Patient states that she is still having some issues with chest pressure. She also complains of headache. She received Excedrin yesterday 2 tablets which she has not received anything today. Blood pressures still remain elevated this morning 176/102 and patient received her morning medications around 9:00 with improvement. She was ordered for hydralazine 25 mg 3 times daily which we had at this morning and also hydrochlorothiazide and losartan. VITAL SIGNS: Reviewed. HEENT: Head is atraumatic, normocephalic. Pupils are equal, round. Sclerae anicteric. Conjunctivae are clear. Mucous membranes of the mouth are moist. Neck is supple. There is no elevated jugular venous pressure. No carotid bruit is heard. CHEST EXAMINATION: Clear to auscultation bilaterally. No wheezes rales or rhonchi. Respirations even and nonlabored. HEART EXAMINATION: Heart regular, positive S1 and S2. No S3. No S4. Soft systolic murmur. ABDOMEN: Soft, nontender. Bowel sounds are heard. No organomegaly noted. EXTREMITIES: 2+ peripheral pulses with no evidence of peripheral edema and no calf tenderness noted. NEUROLOGIC EXAMINATION: Patient is awake, alert and oriented x3. ASSESSMENT chest heaviness, acute coronary event has been ruled out hypertension, uncontrolled Fentanyl abuse, currently at [facility] for rehab nicotine dependence Plan: Continue patient on current cardiac medications: Aspirin 81 mg daily, Coreg 6.25 mg twice daily, clonidine 0.1 mg daily, hydrochlorothiazide 25 mg daily, losartan 100 mg daily. Add Lipitor 20 mg at bedtime. Add hydralazine 25 mg 3 times daily to start this morning Continue to trend the blood pressure. Further recommendations to follow. Nurse practitioner note has been reviewed, I agree with documented findings and plan of care. Patient was seen and examined. Objective - Vital Signs Vital signs: Vital Signs Temp 98.2 F 01/15/24 08:00 Pulse 60 01/15/24 08:00 Resp 16 01/15/24 08:00 BP 176/102 01/15/24 08:00 Pulse Ox 97 01/15/24 08:00 FiO2 Intake & Output 01/14/24 01/15/24 01/15/24 18:59 06:59 18:59 Intake Total 222 118 Balance 222 118 Intake: Oral 222 118 Other: Voiding Method Toilet # Voids 2 2 - Labs CBC & Chem 7: 01/12/24 09:37 01/14/24 04:38 Labs: Abnormal Lab Results - Last 24 Hours (Table) 01/15/24 Range/Units 12:03 POC Glucose (mg/dL) 114 H (70-110) mg/dL
--- NOTE | 2024-01-15 16:03 | P.PN ---
Subjective Progress Note Date: 01/15/24 Principal diagnosis: chest pain Ms. Fuchs was seen and examined. Blood pressure still labile. Still endorsing headache. In the setting of hypertension and headache I will order CT of the head. Objective - Vital Signs Vital signs: Vital Signs Temp 98.4 F 01/15/24 14:00 Pulse 90 01/15/24 14:00 Resp 16 01/15/24 14:00 BP 180/92 01/15/24 14:00 Pulse Ox 93 L 01/15/24 14:00 FiO2 Intake & Output 01/14/24 01/15/24 01/15/24 18:59 06:59 18:59 Intake Total 222 236 Balance 222 236 Intake: Oral 222 236 Other: Voiding Method Toilet # Voids 2 2 3 - Exam Vitals: Reviewed General: No acute distress Cardiovascular: RRR, S1-S2 Lungs: Breath sounds equal and clear to auscultation bilaterally. No wheezing, rhonchi or rales Extremities: No lower extremity edema - Labs CBC & Chem 7: 01/12/24 09:37 01/14/24 04:38 Labs: Abnormal Lab Results - Last 24 Hours (Table) 01/15/24 Range/Units 12:03 POC Glucose (mg/dL) 114 H (70-110) mg/dL Assessment and Plan Plan: # Chest pain ACS rule out. EKG nonischemic. Troponins negative. # Hypertension On hydrochlorothiazide, losartan and Coreg.Catapres 0.1 mg was added as it appears she is going through clonidine withdrawal. Also on hydralazine. # Opioid dependence On methadone 140 mg daily # Depression Continue Zoloft VTE prophylaxis with Lovenox
--- NOTE | 2024-01-15 16:28 | CT ---
EXAMINATION TYPE: CT brain wo con DATE OF EXAM: 01/15/2024 COMPARISON: 01/05/2024 HISTORY: 58-year-old female hypertension headache TECHNIQUE: Examination was done in axial plane without intravenous contrast. Coronal and sagittal r econstructions performed. CT DLP: 1121 mGycm Automated exposure control for dose reduction was used. FINDINGS: There is no evidence of acute intracranial hemorrhage, acute ischemic changes, mass, mass-effect, or extra-axial fluid collection. There is no effacement of cerebral sulci or basal subarachnoid cister ns. There is no hydrocephalus. There is no midline shift. Staples-white matter distinction is preserv ed. Previous lacunar infarct right basal ganglia. Paranasal sinuses and mastoid air cells well pneumatized. Orbits and globes are intact. Benign hyperostosis frontalis. IMPRESSION: Old lacunar infarct right basal ganglia. No acute intracranial abnormality seen.
[2024-01-15] MEDS: IBUPROFEN 200 MG TAB PO STA (18:00)
[2024-01-15] MEDS: ATORVASTATIN 20 MG TAB PO SCH (20:18)
--- NOTE | 2024-01-16 11:02 | P.PN ---
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 Has a history of hypertension. She has a history of drug abuse with prior prescription pain pills subsequent heroin abuse and more recently fentanyl abuse is currently at [facility] for rehab. She has been having issues with hypertension. Yesterday she became weak, sweaty, nauseous with a headache. Blood pressure has been elevated since admission. She has some chest heaviness. At the time my examination blood pressure was 180/100. She is currently on carvedilol 12.5 mg p.o. twice daily, losartan 50 mg p.o. daily and hydralazine 100 mg p.o. 3 times daily. She did have an echocardiogram done in October of this year that showed normal LV systolic function with mild MR. Troponins have been negative x 3 and EKG showed sinus mechanism with nonspecific ST-T wave abnormalities but no evidence of ischemia. She is a current every day smoker about 3 cigarettes/day. She is not very active at home. She has been in [place] for about 12 days. Time my examination her main complaint is headache. She denies any palpitations or dizziness. She continues to have some chest heaviness but this has improved some. She denies any dyspnea on exertion, orthopnea or PND. 01/14/2024 Patient was seen and examined resting comfortably in bed. She continues to complain of a headache. Her chest is feeling better this morning. She is had no shortness of breath or dizziness. Blood pressure remains elevated. 01/14 Patient states that she is still having some issues with chest pressure. She also complains of headache. She received Excedrin yesterday 2 tablets which she has not received anything today. Blood pressures still remain elevated this morning 176/102 and patient received her morning medications around 9:00 with improvement. She was ordered for hydralazine 25 mg 3 times daily which we had at this morning and also hydrochlorothiazide and losartan. 01/15 Patient is seen today in follow-up. Medication adjustments were made yesterday by adding hydralazine. Blood pressure readings are improved running between 122/68-146/93. Heart rate is in the 70s and 80s, pulse ox 94% on room air. Patient states that she continues to have a headache but overall feels better. She states her last cardiac stress test was done between 2 and 3 years ago which was normal. She states she had a little bit of a chest pain yesterday but none today. VITAL SIGNS: Reviewed. HEENT: Head is atraumatic, normocephalic. Pupils are equal, round. Sclerae anicteric. Conjunctivae are clear. Mucous membranes of the mouth are moist. Neck is supple. There is no elevated jugular venous pressure. No carotid bruit is heard. CHEST EXAMINATION: Clear to auscultation bilaterally. No wheezes rales or r honchi. Respirations even and nonlabored. HEART EXAMINATION: Heart regular, positive S1 and S2. No S3. No S4. Soft systolic murmur. ABDOMEN: Soft, nontender. Bowel sounds are heard. No organomegaly noted. EXTREMITIES: 2+ peripheral pulses with no evidence of peripheral edema and no calf tenderness noted. NEUROLOGIC EXAMINATION: Patient is awake, alert and oriented x3. ASSESSMENT chest heaviness, acute coronary event has been ruled out hypertension, uncontrolled Fentanyl abuse, currently at [facility] for rehab nicotine dependence Plan: Continue patient on current cardiac medications: Aspirin 81 mg daily, Coreg 6.25 mg twice daily, clonidine 0.1 mg daily, hydrochlorothiazide 25 mg daily, losartan 100 mg daily. Continue Lipitor 20 mg at bedtime. Continue hydralazine 25 mg 3 times daily to start this morning If blood pressure continues to be suboptimal, consider increasing Coreg. Patient is cleared for discharge from cardiology. Patient may follow-up with her PCP in [place]. Cardiology will sign off this case and follow on an as-needed basis. Please r econsult for any new concerns. Nurse practitioner note has been reviewed, I agree with documented findings and plan of care. Patient was seen and examined. Objective - Vital Signs Vital signs: Vital Signs Temp 98.2 F 01/16/24 07:36 Pulse 81 01/16/24 07:36 Resp 16 01/16/24 07:36 BP 146/93 01/16/24 07:36 Pulse Ox 94 L 01/16/24 07:36 FiO2 Intake & Output 01/15/24 01/16/24 01/16/24 18:59 06:59 18:59 Intake Total 473 118 Balance 473 118 Intake: Oral 473 118 Other: Voiding Method Toilet # Voids 3 2 - Labs CBC & Chem 7: 01/12/24 09:37 06/23/24 04:38 Labs: Abnormal Lab Results - Last 24 Hours (Table) 01/15/24 Range/Units 12:03 POC Glucose (mg/dL) 114 H (70-110) mg/dL
--- NOTE | 2024-01-16 11:12 | P.PN ---
Subjective Progress Note Date: 01/16/24 Principal diagnosis: chest pain Ms. Fuchs was seen and examined. Blood pressure is improved. Still endorsing unrelenting headache, states it is 9 out of 10 today. Plan of care discussed with her. Objective - Vital Signs Vital signs: Vital Signs Temp 98.2 F 01/16/24 07:36 Pulse 81 01/16/24 07:36 Resp 16 01/16/24 07:36 BP 146/93 01/16/24 07:36 Pulse Ox 94 L 01/16/24 07:36 FiO2 Intake & Output 01/15/24 01/16/24 01/16/24 18:59 06:59 18:59 Intake Total 473 118 Balance 473 118 Intake: Oral 473 118 Other: Voiding Method Toilet # Voids 3 2 - Exam Vitals: Reviewed General: No acute distress Cardiovascular: RRR, S1-S2 Lungs: Breath sounds equal and clear to auscultation bilaterally. No wheezing, rhonchi or rales Extremities: No lower extremity edema - Labs CBC & Chem 7: 01/12/24 09:37 01/14/24 04:38 Labs: Abnormal Lab Results - Last 24 Hours (Table) 01/15/24 Range/Units 12:03 POC Glucose (mg/dL) 114 H (70-110) mg/dL Assessment and Plan Plan: # Chest pain ACS rule out. EKG nonischemic. Troponins negative. # Hypertension, improved On hydrochlorothiazide, losartan and Coreg.Catapres 0.1 mg was added as it appears she is going through clonidine withdrawal. Also on hydralazine. She had a renal ultrasound done back in October which did not show any renal artery stenosis. She also had an aldosterone and renin level drawn at that time and ratio was not elevated. # Opioid dependence On methadone 140 mg daily # Depression Continue Zoloft # Old lacunar infarct on CT scan Aspirin and statin. This is likely secondary to uncontrolled hypertension. Neuro. she had an unremarkable echo in October, no bubble study at that time. # Headache Likely related to blood pressure but unrelenting. As it is a new onset headache we will obtain MRI of the brain. CT scan was negative for acute process. VTE prophylaxis with Lovenox
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
[2024-01-16] MEDS: BUTALB/APAP/CAFF 50-325-40MG TAB PO PRN (13:21)
--- NOTE | 2024-01-16 16:34 | MR ---
EXAMINATION TYPE: MR brain wo/w con DATE OF EXAM: 01/16/2024 3:51 PM CLINICAL INDICATION:Female, 58 years old with history of new onset headache; PHH, New onset headache. COMPARISON: 01/15/2024 TECHNIQUE: Multi planar, multi sequence imaging was performed through the brain including: T1, T2, In version recovery, susceptibility weighted imaging and gradient echo imaging and Diffusion weighted im aging. The patient was then given intravenous contrast and multi planar, T1 fat-saturation images wer e obtained. IV Contrast: 7.5 cc Gadavist FINDINGS: The english-white junctions, ventricular system, basal cisterns appear unremarkable. Diffusion-weighted imaging shows no evidence of restricted diffusion to suggest acute/subacute infarct. Intracranial ar terial flow voids are maintained. Midline structures show no abnormality. Scattered foci of high T2 s ignal intensity are seen within the periventricular white matter. The susceptibility weighted images do not reveal any evidence for micro-hemorrhage. After administration of gadolinium, no abnormal enha ncement is seen. The bone marrow signal is within normal limits. Paranasal sinuses and mastoid air cells: No significant paranasal sinus disease. Visualized orbits: Orbital contents are intact. IMPRESSION: 1. No evidence of intracranial mass, acute/subacute infarct, or abnormal enhancement. 2. Nonspecific white matter changes, likely related to small vessel ischemic disease.
--- NOTE | 2024-01-16 17:06 | US ---
EXAMINATION TYPE: US carotid duplex BILAT DATE OF EXAM: 01/16/2024 COMPARISON: NONE CLINICAL INDICATION: Female, 58 years old with history of Headache, bruit; Patient states she has a h istory of stroke. Patient states she has never had any scans of her carotid before. HTN- on meds. TECHNIQUE: Carotid duplex ultrasound examination. Indirect Doppler criteria was utilized. 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 Plaque seen in bilateral bulbs. Difficult to accurately determine true patency of right ICA vs ECA due to location and size of ves maldonado IMPRESSION: Less than 50% stenosis of the bilateral carotid bifurcations. Criteria for Assigning % of Stenosis / Diameter reduction (Estimation based on the indirect measurements of the internal carotid artery velocities (ICA PSV). 1. Normal (no stenosis)=ICA PSV < 125 cm/s: ratio < 2.0: ICA EDV<40 cm/s. 2. Less than 50% stenosis=ICA PSV < 125 cm/s: ratio < 2.0: ICA EDV<40 cm/s. 3. 50 to 69% stenosis=ICA PSV of 125 to 230 cm/s: ration 2.0 ? 4.0: ICA EDV 40-100 cm/s. 4. Greater than 70% stenosis to near occlusion= ICA PSV > 230 cm/s: ratio > 4.0: ICA EDV > 100 cm/s. 5. Near occlusion= ICA PSV velocities may be low or undetectable: variable ratio and ICA EDV. 6. Total occlusion=unable to detect flow.
--- NOTE | 2024-01-17 08:14 | P.PN ---
Subjective Progress Note Date: 01/17/24 Principal diagnosis: chest pain Ms. Fuchs was seen and examined. She is in good spirits and feels well today. No chest pain, shortness of breath or headache. Plan for DC. She was given discharge instructions. Objective - Vital Signs Vital signs: Vital Signs Temp 98.1 F 01/17/24 01:48 Pulse 79 01/17/24 01:48 Resp 15 01/17/24 01:48 BP 141/83 01/17/24 01:48 Pulse Ox 95 01/17/24 01:48 FiO2 Intake & Output 01/16/24 01/17/24 01/17/24 18:59 06:59 18:59 Intake Total 236 Balance 236 Intake: Oral 236 Other: Voiding Method Toilet # Voids 3 2 - Exam Vitals: Reviewed General: No acute distress Cardiovascular: RRR, S1-S2 Lungs: Breath sounds equal and clear to auscultation bilaterally. No wheezing, rhonchi or rales Extremities: No lower extremity edema - Labs CBC & Chem 7: 01/12/24 09:37 01/14/24 04:38 Assessment and Plan Plan: # Chest pain ACS rule out. EKG nonischemic. Troponins negative. # Hypertension, improved On hydrochlorothiazide, losartan and Coreg.Catapres 0.1 mg was added as it appears she is going through clonidine withdrawal. Also on hydralazine. She had a renal ultrasound done back in October which did not show any renal artery stenosis. She also had an aldosterone and renin level drawn at that time and ratio was not elevated. # Opioid dependence On methadone 140 mg daily # Depression Continue Zoloft # Old lacunar infarct on CT scan Aspirin and statin. This is likely secondary to uncontrolled hypertension. Neuro. she had an unremarkable echo in October, no bubble study at that time. MRI of the brain just showed chronic microvascular changes but no acute process. Carotid ultrasound less than 50% stenosis. # Headache, resolved Likely related to blood pressure but unrelenting. CT scan was negative for acute process. MRI was also negative for acute process. VTE prophylaxis with Lovenox
--- NOTE | 2024-01-17 08:35 | P.DS ---
Providers Date of admission: 01/12/24 12:52 Expected date of discharge: 01/17/24 Attending physician: Jareth Acuña MD Consults: 01/12/24 12:49 Consult Physician Urgent Consulting Provider: [facility] Consult Reason/Comments: Chest pain Do you want consulting provider notified?: Yes 01/16/24 10:48 Consult Physician Urgent Consulting Provider: Steph Wayne Consult Reason/Comments: Unrelenting headache, old stroke ct scan Do you want consulting provider notified?: Yes Primary care physician: Gustavo López, DO Hospital Course: Ms. Fuchs is a 58-year-old lady with a medical history significant for hypertension and previous fentanyl use, now on methadone, who presented from [facility] with chest pressure and unrelenting headache. She was found to be significantly hypertensive with systolic above 190 on admission. Upon further history taking, it appeared her clonidine was stopped recently and it appeared she was having rebound hypertension. Clonidine was restarted and other medications were adjusted, her blood pressure is now relatively controlled. Clonidine can be weaned down by her primary care physician outpatient. It appears she has already had a secondary hypertension workup in October at which time aldosterone to renal ratio was not elevated and she had a negative ultrasound for renal artery stenosis. In terms of her chest pressure, ACS was ruled out. She had a recent normal echocardiogram in October. She was evaluated by cardiology with no further recommendations. Chest pressure resolved. Her hospital course was complicated by an unrelenting headache. This was thought to be related to her hypertension. Even with improvement in blood pressure she still continued to have headache therefore CT of the head was done. This showed an old lacunar infarct on the right, this was followed up by an MRI and MRI was negative for any acute process but did show chronic microvascular changes. Carotid ultrasound was ordered by neurology and this did not show any significant stenosis. She will be discharged with aspirin and statin and advised follow-up with neurology outpatient. On today's evaluation, she is in good spirits. She feels well denies any headache, chest pressure, shortness of breath or any other symptoms. She is ready to be discharged back to [facility]. She was given explicit discharge instructions. Advised to return to the ED if blood pressure above 190 systolic. He is advised to monitor her blood pressure and follow-up with her primary care physician within 1 week. All questions were answered. Discharge diagnoses 1. Atypical chest pain, ACS ruled out, resolved 2. Hypertension, improved 3. Headache, resolved, MRI negative for acute process 4. Opioid dependence 5. Depression, stable 6. Old lacunar infarct on CT, MRI with chronic microvascular changes, neurology follow-up outpatient, aspirin and statin Total discharge time greater than 30 minutes Plan - Discharge Summary New Discharge Prescriptions: New hydrALAZINE HCL [Apresoline] 25 mg PO TID #90 tab Losartan [Cozaar] 100 mg PO DAILY #60 tab Atorvastatin [Lipitor] 20 mg PO HS #30 tab Aspirin 81 mg PO DAILY #90 tab cloNIDine HCL [Catapres] 0.1 mg PO DAILY #30 tab carvediloL [Coreg] 6.25 mg PO AC-BID #60 tab [id number] [Excedrin] 2 each PO Q6HR PRN #12 tab PRN Reason: Headache hydroCHLOROthiazide [Hydrodiuril] 25 mg PO DAILY #30 tab Continue Thiamine [Vitamin B-1] 100 mg PO DAILY Calcium/Zinc/Mag/D3 1 tab PO TID PRN PRN Reason: CRAMPS Mirtazapine [Remeron] 15 mg PO HS ondansetron HCL [Zofran] 8 mg PO Q6H PRN PRN Reason: Nausea Acetaminophen [Tylenol] 650 mg PO Q4H Multivitamins, Thera [Multivitamin (formulary)] 1 tab PO DAILY Sertraline [Zoloft] 50 mg PO DAILY Methadone HCl [Methadone Intensol] 145 mg PO DAILY Discontinued carvediloL [Coreg*] 12.5 mg PO DAILY Losartan [Cozaar] 50 mg PO DAILY cloNIDine HCL [Catapres] 0.1 - 0.3 mg PO Q4H PRN PRN Reason: BP > 160/100 Ibuprofen [Motrin Ib] 600 mg PO Q6H PRN PRN Reason: Pain hydrALAZINE HCL [Apresoline] 100 mg PO TID Discharge Medication List Acetaminophen [Tylenol] 650 mg PO Q4H 11/16/23 [History] Calcium/Zinc/Mag/D3 1 tab PO TID PRN 11/16/23 [History] Methadone HCl [Methadone Intensol] 145 mg PO DAILY 11/16/23 [History] Multivitamins, Thera [Multivitamin (formulary)] 1 tab PO DAILY 11/16/23 [History] Sertraline [Zoloft] 50 mg PO DAILY 11/16/23 [History] Thiamine [Vitamin B-1] 100 mg PO DAILY 11/16/23 [History] Mirtazapine [Remeron] 15 mg PO HS 01/05/24 [History] ondansetron HCL [Zofran] 8 mg PO Q6H PRN 01/12/24 [History] Aspirin 81 mg PO DAILY #90 tab 01/17/24 [Rx] [id number]-[id number] [id number] [Excedrin] 2 each PO Q6HR PRN #12 tab 01/17/24 [Rx] Atorvastatin [Lipitor] 20 mg PO HS #30 tab 01/17/24 [Rx] Losartan [Cozaar] 100 mg PO DAILY #60 tab 01/17/24 [Rx] carvediloL [Coreg] 6.25 mg PO AC-BID #60 tab 01/17/24 [Rx] cloNIDine HCL [Catapres] 0.1 mg PO DAILY #30 tab 01/17/24 [Rx] hydrALAZINE HCL [Apresoline] 25 mg PO TID #90 tab 01/17/24 [Rx] hydroCHLOROthiazide [Hydrodiuril] 25 mg PO DAILY #30 tab 01/17/24 [Rx] Follow up Appointment(s)/Referral(s): Yovany Mc MD [Medical Doctor] - 1 Week [facility] [NON-STAFF] - 1 Week Gustavo López DO [Primary Care Provider] - 1-2 days [facility] [NON-STAFF] - 1 Week Steph Wayne MD [STAFF PHYSICIAN] - 1 Week Patient Instructions/Handouts: Chronic Hypertension (ED) Activity/Diet/Wound Care/Special Instructions: nurse to call [facility] for report and transport at time of d/c. Discharge Disposition: OTHER INSTITUTION NOT DEFINED Care Plan Goals (MU): Please monitor your blood pressure at home in the morning and evening If your blood pressure exceeds 190 systolic [top number] please return to the ED For your blood pressure you will be taking clonidine 0.1 mg daily, Coreg 6.25 mg twice daily, hydrochlorothiazide 25 mg daily and hydralazine 25 mg 3 times a day. Please have your primary care physician wean down clonidine. Please follow-up with your primary care doctor within 1 week. Please keep a blood pressure log to present your primary care doctor. Please also follow-up with the neurologist and adjunct spanish instructor outpatient. Contact information in discharge instructions. Plan of Treatment: Please monitor your blood pressure at home in the morning and evening If your blood pressure exceeds 190 systolic [top number] please return to the ED For your blood pressure you will be taking clonidine 0.1 mg daily, Coreg 6.25 mg twice daily, hydrochlorothiazide 25 mg daily and hydralazine 25 mg 3 times a day. Please have your primary care physician wean down clonidine. Please follow-up with your primary care doctor within 1 week. Please keep a blood pressure log to present your primary care doctor. Please also follow-up with the neurologist and adjunct spanish instructor outpatient. Contact information in discharge instructions.
[2024-01-17 09:02] VITALS: BP 138/80; PULSE 75; RESP 18; TEMP 98.5
== END 2024-01-17 12:59 | disposition still patient (30) | DRG 199 ==
LOC: EC 09:14 → 6NMEDSUR 12:51 → OBSVTOIN 12:52 → 6NMEDSUR 17:58
PROVIDERS: ADMIT Student in an Organized Health Care Education/Training Program; ATTEND Student in an Organized Health Care Education/Training Program
DX: I10 Essential (primary) hypertension (principal); E78.5 Hyperlipidemia, unspecified; F11.20 Opioid dependence, uncomplicated; F17.210 Nicotine dependence, cigarettes, uncomplicated; F32.A Depression, unspecified; F19.10 Other psychoactive substance abuse, uncomplicated; N17.9 Acute kidney failure, unspecified; R51.9 Headache, unspecified; Z79.899 Other long term (current) drug therapy; Z86.73 Personal history of transient ischemic attack (TIA), and cerebral infarction without residual deficits; Z88.8 Allergy status to other drugs, medicaments and biological substances
CPT/HCPCS: 36415; 70450; 70553; 71046; 80048; 80053; 80061; 83036; 83735; 84484; 85025; 85379; 85610; 85652; 85730; 86140; 93005; 93880; 96361; 96374; 96375; 96376; 99285